=== PATIENT | male | born 1965 | race Caucasian/White ===

== ENCOUNTER 2024-03-03 17:32 | Inpatient (IN) | payer MEDICAID, SELFPAY ==
[2024-03-03] VITALS (7 sets, daily range): BP systolic 109–171; BP diastolic 75–103; PULSE 100–130; RESP 10–20; TEMP 36.3–37.3; O2SAT 92–96; BMI 32.4
--- NOTE | ~2024-03-03 | XR_ITS ---
EXAMINATION: XR CHEST CLINICAL INFORMATION: Endotracheal tube placement. COMPARISON: Chest radiograph 03/03/2024. TECHNIQUE: Frontal view of the chest was obtained. FINDINGS: The endotracheal tube terminates at 4.9 cm above the piper. An enteric tube courses into the abdomen and terminates outside of the field of view. Low lung volumes. Bronchovascular perihilar thickening. No pleural effusion. No pneumothorax. No acute osseous findings. XR/XR chest 1V IMPRESSION: 1. The endotracheal tube terminates at 4.9 cm above the piper. 2. Bronchovascular perihilar thickening that could be seen with pulmonary venous congestion or small airways disease. Electronically signed by: Altagracia Sandhu MD 03/04/2024 02:03 PM EDT
--- NOTE | ~2024-03-03 | XR_ITS ---
EXAMINATION: XR CHEST CLINICAL INFORMATION: central line COMPARISON: Chest radiograph 03/07/2024 at 8:42 AM TECHNIQUE: AP view of the chest was obtained. FINDINGS: Interval placement of left IJ central venous catheter with tip overlying the brachycephalic vein. Endotracheal tube with tip approximately 5.3 cm above the piper. Enteric tube courses below the diaphragm with the tip projecting over the stomach. The lungs are hypoexpanded with mild asymmetric elevation of the right hemidiaphragm, as before. Patchy bibasilar opacities, improving from prior. No synovial pleural effusion, overt pulmonary edema or pneumothorax. The cardiac mediastinal silhouette is within normal limits for technique and unchanged. No acute osseous abnormality. XR/XR chest 1V IMPRESSION: 1. Interval placement of left IJ central venous catheter with tip overlying the brachiocephalic vein. No pneumothorax. 2. Endotracheal tube with tip approximately 5.3 cm above the piper. 3. Patchy bibasilar opacities, improving from prior. Electronically signed by: Andie Quintero DO 03/07/2024 02:00 PM EDT
--- NOTE | ~2024-03-03 | XR_ITS ---
EXAMINATION: XR CHEST CLINICAL INFORMATION: intubated COMPARISON: Chest radiograph 03/05/2024 TECHNIQUE: AP view of the chest was obtained. FINDINGS: Endotracheal tube with tip approximately 5.4 cm above the piper. Enteric tube courses below diaphragm and out of [id number]. The lungs are hypoexpanded. Bibasilar patchy opacities, improved from prior. No pleural effusion, pulmonary edema or pneumothorax. The cardiac mediastinal silhouette is within normal limits for technique and unchanged. No acute osseous abnormality. XR/XR chest 1V IMPRESSION: 1. Endotracheal tube with tip approximately 5.4 cm above the piper. 2. Bibasilar patchy opacities, improved from prior, which may represent atelectasis/consolidation. Electronically signed by: Andie Quintero DO 03/07/2024 02:01 PM EDT
--- NOTE | ~2024-03-03 | MR_ITS ---
EXAMINATION: MR BRAIN WITHOUT CONTRAST CLINICAL INFORMATION: Encephalopathy. COMPARISON: CT head and neck from 03/03/2024. TECHNIQUE: MRI of the brain was obtained using routine sequences without contrast. FINDINGS: Moderately motion degraded exam. No focal restricted diffusion is demonstrated to suggest acute or subacute cerebral ischemia. No evidence of acute or chronic hemorrhagic products on heme-sensitive imaging. Scattered periventricular and deep white matter T2 FLAIR hyperintensities most commonly seen with mild underlying microangiopathy. The ventricles are normal in morphology and size. No abnormal mass effect. No midline shift. Normal appearance of the pituitary gland. Normal positioning of the cerebellar tonsils. Normal arterial and venous vascular flow voids are present. Normal, homogeneous marrow signal. Mild mucosal thickening of the paranasal sinuses. No signal abnormalities within the mastoids. MR/MR head/brain wo con IMPRESSION: 1. No acute intracranial abnormalities. 2. Mild nonspecific white matter changes most commonly seen with mild underlying microangiopathy. Electronically signed by: Srinivasa Conde DO 03/07/2024 06:16 PM EDT
--- NOTE | ~2024-03-03 | XR_ITS ---
EXAMINATION: XR ABDOMEN KUB CLINICAL INDICATION: Small bowel obstruction. COMPARISON: KUB dated March 07, 2024. CT scan of the abdomen and pelvis dated March 03, 2024. TECHNIQUE: Portable supine AP view of the abdomen. FINDINGS: Previously seen nasogastric tube has been removed. There are multiple loops of dilated small bowel predominantly located in the left upper abdomen and measuring up to approximately 4.4 cm in diameter. Relative decompression of distal small bowel and colon suggest small bowel obstruction. Findings appear similar to improved compared with 2 days prior. No free air is identified. No soft tissue mass or organomegaly is noted. Mild degenerative changes of the lower lumbar spine and hips. Tip of thin, braided metallic density projects over the mid lower pelvis. Linear density projecting over the left lung base suggests atelectasis and/or fibrotic streak. XR/XR KUB IMPRESSION: Findings as above. Electronically signed by: Liborio Bowling MD 03/09/2024 10:58 AM EDT
--- NOTE | ~2024-03-03 | XR_ITS ---
EXAMINATION: XR CHEST CLINICAL INFORMATION: Low O2 COMPARISON: None available. TECHNIQUE: Frontal view of the chest was obtained. FINDINGS: No significant abnormality is noted involving the heart, lungs, mediastinum, bony thorax or soft tissues. XR/XR chest 1V IMPRESSION: Unremarkable examination. Electronically signed by: Tim Montano DO 03/03/2024 07:55 PM EDT RP
--- NOTE | ~2024-03-03 | CT_ITS ---
EXAMINATION: CT ANGIOGRAM HEAD CT ANGIOGRAM NECK CT CERVICAL SPINE CLINICAL INFORMATION: AMS, status post fall, EtOH COMPARISON: None. TECHNIQUE: Test bolus sequences followed by intravenous administration 100 mL of Omnipaque 300. Helical imaging was performed in the axial plane from the aortic arch to the skull vertex. Delayed postcontrast imaging of the head was also performed. The data was processed at the nuclear medical technologist's workstation for generation of MIP sequences. Angled MIPs and volume rendered reformatted images were also generated at an offline 3D workstation. Stenoses are assessed in accordance with Acosta et al. Quantification of Carotid Stenosis on CT Angiography. AJR 2006. 27(1):13-19. CT acquisitions of the cervical spine are also obtained. This CT examination was performed using dose optimization techniques as appropriate, variously including the following: *Automated exposure control *Adjustment of mA and/or kV according to patient size (this includes techniques or standardized protocols for targeted exams where dose is matched to indication/reason for exam; i.e. extremities or head) *Use of iterative reconstruction technique DLP: 2389 mGy-cm FINDINGS: CT HEAD: Mild generalized parenchymal volume loss. There is no abnormal attenuation within the brain parenchyma. No territorial loss of pabon-white differentiation. No acute intracranial hemorrhage or extra-axial fluid collection. No significant mass effect or herniation pattern No pathologic intra-axial enhancement within limitations of CT or regional oligemia. The orbits are grossly normal. Lobulated soft tissue within the right maxillary sinus alveolar recess with internal hyperdensity/calcifications raising the possibility of a mycetoma. Sclerotic wall thickening of the right maxillary sinus related to chronic sinusitis. Periodontal lucency associated with the posterior left maxillary molar. Osseous structures are intact. CTA HEAD: Limited diagnostic assessment related to contrast bolus timing and motion artifact. No proximal large vessel occlusion or hemodynamically significant stenosis. Dominant right A1 FANNY. Mild calcific plaque along the left cavernous sinus ICA. Apparent 3 mm superiorly projecting vascular protrusion arising from the right M1 MCA possibly reflecting aneurysm at this location, which is not diagnostically assessed due to the degree of motion artifact (image 116, series 13). No high flow vascular malformations. Timing of the contrast bolus allows assessment of the major dural venous sinuses, which all opacify normally CTA NECK: Classic 3 vessel branching pattern of the aortic arch. The left vertebral artery is dominant. Limited and partially nondiagnostic assessment of the vasculature in the neck related to motion artifact and contrast bolus timing, particularly limiting assessment of the V2 vertebral arteries distal common carotid and mid internal carotid arteries with otherwise grossly preserved contrast filling. Nondiagnostic assessment for subtle intimal flap. CT NECK: Heterogeneity of the thyroid gland with coarse calcification in the right thyroid lobe that can be correlated with thyroid function tests and potentially further assessed with thyroid ultrasound. CT Cervical Spine: Normal sagittal alignment is preserved. Mild multilevel cervical spondylosis. Vertebral body heights are maintained. Motion artifact limits assessment for acute fracture, however no displaced fracture is identified. No pathologic malalignment. CT/CT cervical spine wo IV con IMPRESSION: 1. No acute intracranial findings. 2. Nondiagnostic assessment for vascular injury due to extent of motion artifact and contrast bolus timing. 3. No proximal large vessel occlusion or hemodynamically significant stenosis. Nondiagnostic assessment of the V2 vertebral arteries, distal common carotid and mid internal carotid arteries. 4. Motion artifact limits assessment for acute fracture, however no displaced fracture or traumatic malalignment is identified. 5. Heterogeneity of the thyroid gland that can be correlated with thyroid function tests and potentially further assessed with thyroid ultrasound. Electronically signed by: Rosibel Becker MD 03/03/2024 07:09 PM EDT
--- NOTE | ~2024-03-03 | XR_ITS ---
EXAMINATION: XR ABDOMEN KUB CLINICAL INDICATION: SBO COMPARISON: Abdominal radiograph 03/05/2024 TECHNIQUE: AP supine views of the abdomen, 2 images. FINDINGS: There are multiple dilated loops of small bowel in the left upper and lower abdomen measuring up to 4.3 cm, improved from 5.3 cm on 03/05/2024. Rectal is a temperature probe again seen. No overt pneumoperitoneum. No soft tissue calcification. The visualized lung bases are clear. The osseous structures are unremarkable. XR/XR KUB IMPRESSION: There are multiple dilated loops of small bowel in the left upper and lower abdomen suggestive of ongoing partial small bowel obstruction/ileus, improved from prior. Electronically signed by: Andie Quintero DO 03/07/2024 01:54 PM EDT
--- NOTE | ~2024-03-03 | CT_ITS ---
EXAMINATION: CT ABDOMEN AND PELVIS WITH CONTRAST CLINICAL INFORMATION: Diffuse abdominal pain COMPARISON: None TECHNIQUE: Multiple axial images were obtained from the superior aspect of the liver through the pubic symphysis after the administration of 100 mL of intravenous Omnipaque 350. Images were evaluated on independent dedicated 3-D workstation and 3-D images were reconstructed with concurrent radiologist supervision and subsequently interpreted. Oral contrast was not administered. This CT examination was performed using dose optimization techniques as appropriate, variously including the following: *Automated exposure control *Adjustment of mA and/or kV according to patient size (this includes techniques or standardized protocols for targeted exams where dose is matched to indication/reason for exam; i.e. extremities or head) *Use of iterative reconstruction technique MOTION LIMITED STUDY. DLP: 1004 mGy-cm FINDINGS: LUNG BASES: The visualized lung bases are clear. CARDIOMEDIASTINUM: The visualized heart is normal in size without pericardial effusion. No coronary artery calcification. LIVER: Enlarged measuring 21 cm in the midclavicular line. GALLBLADDER: Noninflamed. BILIARY SYSTEM: No intrahepatic or extrahepatic biliary dilation. PANCREAS: Homogeneous in attenuation. SPLEEN: Normal in size. GENITOURINARY: Although bilateral kidneys demonstrate symmetric enhancement, the right kidney is slightly larger than the left. There is no evidence of significant renal artery atherosclerotic calcifications on this non-arterial phase study. No perinephric fluid collection. No renal calculi. No hydroureteronephrosis. ADRENAL GLANDS: Unremarkable. REPRODUCTIVE: Prostate present. GASTROINTESTINAL: Diffuse fluid-filled dilation of the small bowel extending up to the right lower quadrant. A definite transition point is not identified on this oral noncontrast study. APPENDIX: The appendix is not visualized; however, no pericecal inflammatory changes are seen in the right lower quadrant. PERITONEUM: No pneumoperitoneum. No intra-abdominal fluid collection. VASCULATURE: The abdominal aorta is normal in course and caliber. LYMPH NODES: No pathologically enlarged abdominal or pelvic lymph nodes. SOFT TISSUES/MUSCULOSKELETAL: Fat-containing umbilical hernia with small amount of fluid. There is no acute fracture or significant focal osseous lesion. CT/CT abdomen pelvis w IV con IMPRESSION: 1. At least partial small bowel obstruction without definite identification of a transition point on this study without oral contrast. Dilated small bowel extends up to the right lower quadrant. 2. Umbilical hernia with small amount of fluid. No definite herniation of small bowel through this defect. Fleischner guidelines were followed. This critical test result was discussed with Dr. Rodríguez at 8:04 PM on 03/03/[address] Tim Montano at the time of discovery. It was ascertained that the content and the importance of the findings was understood at the time of the direct communication. Electronically signed by: Tim Montano DO 03/03/2024 08:05 PM EDT RP
--- NOTE | ~2024-03-03 | XR_ITS ---
EXAMINATION: XR CHEST CLINICAL INFORMATION: Ventilator COMPARISON: 03/04/2024 TECHNIQUE: Frontal view of the chest was obtained. FINDINGS: ET tube is 5.4 cm above the piper. NG tube has its tip in the stomach with the tip beyond the field of view. There is mild increased elevation of the right hemidiaphragm. There is patchy consolidation at the left lung base with new obscuration of the left hemidiaphragm and some left mid lung patchy density. No pneumothorax. No large effusions. Subpulmonic effusions cannot be excluded. XR/XR chest 1V IMPRESSION: 1. ET tube 5.4 cm above the piper. 2. New left lower lobe consolidation. Electronically signed by: Emil Ngo MD 03/05/2024 07:21 PM EDT
--- NOTE | ~2024-03-03 | XR_ITS ---
EXAMINATION: XR ABDOMEN KUB CLINICAL INDICATION: Small bowel obstruction COMPARISON: Portable chest 03/04/2024, CT abdomen and pelvis 03/03/2024 TECHNIQUE: 2 AP views of the abdomen. FINDINGS: Multiple dilated air-filled loops of small bowel redemonstrated. There is a minimal amount of of gas in the colon. Appearance again characteristic of at least a partial small bowel obstruction, better characterized on CT scan. A tube projects over the rectum. Esophagogastric tube tip projects in the upper abdomen. XR/XR abdomen 1V IMPRESSION: Multiple dilated air-filled loops of small bowel redemonstrated. There is a minimal amount of of gas in the colon. Appearance again characteristic of at least a partial small bowel obstruction, better characterized on CT scan. This study was presented today March 05, 2024 for interpretation. Stat results provided at this time as requested by referring provider. Electronically signed by: Ana Pradhan MD 03/05/2024 08:47 AM EDT
--- NOTE | ~2024-03-03 | XR_ITS ---
EXAMINATION: XR ABDOMEN KUB CLINICAL INDICATION: Bowel obstruction. COMPARISON: Abdominal radiograph 03/09/2024 and 03/05/2024. TECHNIQUE: AP view of the abdomen. FINDINGS: Compared to 03/09/2024, similar to mildly increased dilatation of multiple loops of the small bowel measuring up to 5.7 cm in diameter. Compared to 03/05/2024, decreased small bowel dilatation. No acute osseous findings. Surgical clips are noted in the scrotal regions. XR/XR KUB IMPRESSION: Compared to 03/05/2024, decreased small bowel dilatation. However, compared to 03/09/2024 there is similar to slightly increased small bowel dilatation. Electronically signed by: Altagracia Sandhu MD 03/10/2024 03:44 PM EDT
--- NOTE | ~2024-03-03 | XR_ITS ---
EXAMINATION: XR CHEST CLINICAL INFORMATION: Questionable aspiration COMPARISON: None available. TECHNIQUE: Frontal view of the chest was obtained. FINDINGS: No significant abnormality is noted involving the heart, lungs, mediastinum, bony thorax or soft tissues. XR/XR chest 1V IMPRESSION: Unremarkable examination. Electronically signed by: Tim Montano DO 03/03/2024 11:12 PM EDT RP
--- NOTE | 2024-03-03 17:41 | ECG_ITS ---
Test Reason : AMS Blood Pressure : / mmHG Vent. Rate : 115 BPM Atrial Rate : 115 BPM P-R Int : 114 ms QRS Dur : 132 ms QT Int : 382 ms P-R-T Axes : 000 -51 011 degrees QTc Int : 528 ms Sinus tachycardia Right bundle branch block Left anterior fascicular block Bifascicular block Inferior infarct , age undetermined Abnormal ECG No previous ECGs available Referred By: Deysi Rodríguez Electronically Signed By:NEVIN ROE MD
--- NOTE | 2024-03-03 18:03 | ED.AMS ---
HPI - Altered Mental Status General Chief Complaint: Altered Mental Status Stated Complaint: STROKE ALERT Time Seen by Provider: 03/03/24 17:40 Source: EMS Mode of arrival: EMS Limitations: altered mental status History of Present Illness ED Provider: Dr. Deysi Rodríguez HPI narrative: Patient comes to the emergency room via ambulance from home. Patient was found by his son approximately 2 hours ago on the floor, unresponsive but breathing. After his name was called, patient woke up. Patient's normal baseline is alert and oriented x3. Today, patient is very confused, not answering questions. Patient's daughter is at bedside here in the emergency room. The last time that she saw her father was approximately a week ago. Patient lives with his son. Seems that for the last 3 days, patient has been vomiting, complaining of abdominal discomfort, no diarrhea. When EMS arrived, they were to open alcoholic drinks open. It is unclear how much the patient drinks but per patient's daughter there is a fair chance that the patient may be considered an alcoholic. Seems that for the last 3 days, patient has gradually decompensated. It is unclear when was the last time the patient was seen within normal limits or at a reasonable baseline. Patient's son is on the way. Patient has history of epilepsy as a child but has not had any seizures as an adult. Related Data Allergies Allergy/AdvReac Type Severity Reaction Status Date / Time No Known Allergies Allergy Verified 03/03/24 17:45 Review of Systems Review of Systems: Yes Unobtainable due to mental condition and Unobtainable due to mental status PMFSH Past Medical History Medical History (Updated 03/03/24 @ 20:23 by Oralia Brown MD) Alcohol abuse Epilepsy Social History Social History Advance Directives: No Advance Directives Information Provided: No Physical Exam ED Vital Signs: Vital Signs - 24 hr 03/03/24 17:44 03/03/24 17:46 03/03/24 19:47 Temperature 97.3 F 97.3 F 99.2 F Pulse Rate 102 H 102 H 130 H Respiratory Rate 20 20 Blood Pressure 141/94 H 141/94 H 170/88 H Pulse Oximetry 94 94 96 Oxygen Delivery Method Room Air Room Air Room Air Nasal Cannula with ETCO2 BMI result Body Mass Index 32.4 Const Other: Appearance: Alert. Confused, slightly combative, keeps yelling I'm fukin' angry , seems nauseous but no vomiting Eyes: Pupils equal, round and reactive to light. ENT: Pharynx normal. Neck: Normal inspection. Neck supple. No lymph nodes noted. No crepitus CVS: Normal heart rate and rhythm. Pulses normal. Normal S1 and S2 Respiratory: No respiratory distress. Breath sounds normal. No Wheezing. No rales Abdomen: Patient had a prominent umbilical hernia which was reduced at bedside Skin: Skin warm and dry. Normal skin color. Normal skin turgor. Extremities: No lower extremity edema. No Lacerations. No Rash Neuro: Seems to be moving all extremities, cranial nerves 2-12 grossly intact, unable to participating cranial nerve assessment Psych: Confused, altered mental status, awake, slightly combative for easily redirectable Course Course Course Narrative: Patient receiving IV fluids, Zofran -all of patient's labs have been obtained, results pending -patient getting CT scans done. However, patient a bit combative, altered. Patient was given 2 mg IV push of Ativan to facilitate the CT scans. Medications Administered Discontinued Medications Generic Name Dose Route Start Last Admin Trade Name Freq PRN Reason Stop Dose Admin Sodium Chloride 1,000 mls @ 999 mls/hr 03/03/24 17:40 03/03/24 19:36 Ns IVCONT 03/03/24 18:40 Infused .Q1H1M ONE Infusion Iohexol 100 ml 03/03/24 18:37 03/03/24 18:37 Iohexol 350 Mg/Ml 100 Ml Infus..Btl IV 03/03/24 18:38 100 ml ONCE ONE Administration Lorazepam 2 mg 03/03/24 18:09 03/03/24 18:15 Lorazepam 2 Mg/Ml Vial IVPUSH 03/03/24 18:10 2 mg ONCE ONE Administration Lorazepam 2 mg 03/03/24 18:33 03/03/24 18:40 Lorazepam 2 Mg/Ml Vial IVPUSH 03/03/24 18:34 2 mg ONCE ONE Administration Ondansetron HCl 4 mg 03/03/24 18:11 03/03/24 18:33 Ondansetron Hcl 4 Mg/2 Ml Vial IVPUSH 03/03/24 18:12 4 mg ONCE ONE Administration Medical Decision Making Medical Decision Making [facility] Narrative: My interpretation of CT scan: No obvious intracranial bleed -my interpretation of labs, white blood cell count slightly elevated, BUN 54, creatinine 1 0.2-4, anion gap 24, INR 1.3, lactic acid 2.4, LFTs bumped, ammonia 194. All of his changes likely secondary buttock encephalopathy due to chronic alcohol abuse. Sepsis is not suspected. Patient's urinalysis has nitrate. However, no leukocyte, no white blood cell counts, no epithelial cells and no bacteria seen in the urine, UTI is noted suspected, antibiotics are not indicated at this time. -patient's vitals stable, normal blood pressure, no fever. Patient has until mental status likely secondary to hepatic encephalopathy. -patient's ETOH level negative. So far, patient has not had any tonic-clonic activity. Patient has already been given 4 mg of Ativan, which were given to help facilitate the imaging as patient was very altered and confused and moving quite a bit. -patient was started on phenobarb protocol -according to the patient's family, patient drinks at least 1 L of alcohol per day, unclear how long he has been off alcohol. ETOH level negative. It is unclear if patient had alcohol withdrawal seizure. Phenobarb protocol 1st dose to be given now -I discussed the CT scan with Dr. Montano from [facility]. Patient has a possible partial small-bowel obstruction without identification of a transfusion point. Due to patient's mental status, patient can not have p.o. contrast. As mentioned above, when patient came in, patient had a prominent umbilical hernia which was reduced, may be the cause of the patient's small bowel dilation, patient may need asked surgery consult for the morning. At this time, the CT scan only shows adipose tissue -I discussed the patient with Dr. Ceron, patient being admitted. Differential Diagnosis Differential Diagnoses: The differential diagnosis associated with the presentation includes (Alcoholic/metabolic encephalopathy, CVA, intracranial bleed) Admission/Observation Consideration of admission/observation: Escalation of care including admission/observation considered Consult Healthcare Provider Management of the patient was discussed with: Hospitalist Lab Data MDM Lab Attestation statement: I reviewed the patient's lab results. 03/03/24 17:55 03/03/24 17:56 Labs: Lab Results 03/03/24 03/03/24 03/03/24 Range/Units 17:55 17:56 18:05 WBC 11.4 H (4.8-10.8) X10*3/uL RBC 5.04 (4.60-5.80) X10*6/uL Hgb 16.6 (14.0-18.0) g/dl Hct 46.5 (42.0-52.0) % MCV 92.3 (80.0-98.0) fL MCH 32.9 (27.0-33.0) pg MCHC 35.7 (31.0-36.0) g/dl RDW 12.4 (11.0-16.0) % Plt Count 126 L (160-400) X10*3/uL MPV 12.6 H (9.4-12.4) fL Immature Gran % (Auto) 0.4 (0.0-0.4) % Neut % (Auto) 73.1 H (45-73) % Lymph % (Auto) 14.7 L (20-40) % [place] % (Auto) 11.5 H (2-11) % Eos % (Auto) 0.1 (0-4) % Baso % (Auto) 0.2 (0-2) % Lymph # (Auto) 1.7 (1.2-4.9) X10*3/uL [place] # (Auto) 1.3 H (0.1-1.2) X10*3/uL Eos # (Auto) 0.0 (0.0-0.4) X10*3/uL Baso # (Auto) 0.0 (0.0-0.2) X10*3/uL Abs Immat Gran (auto) 0.05 H (0.00-0.03) X10*3/uL Absolute Neuts (auto) 8.3 (2.0-8.3) x10*3/uL Absolute Nucleated RBC 0.000 (0.0-0.012) X10*3/uL Nucleated RBC % (auto) 0.0 (0.0-0.2) /100WBC PT 15.0 H (10.9-12.4) SEC INR 1.3 H (0.9-1.1) VBG pH 7.56 H (7.32-7.43) VBG pCO2 28 mmHg VBG pO2 179 mmHg VBG HCO3 25 (22-26) mmol/L VBG O2 Saturation 100.0 % VBG Base Excess 5.0 mmol/L Sodium 138 (135-145) mmol/L Potassium 3.7 (3.3-5.1) mmol/L Chloride 98 (96-108) mmol/L Carbon Dioxide 22 (22-29) mmol/L Anion Gap 22 H (12-20) BUN 54 H (9-16) mg/dL Creatinine 1.24 (0.5-1.4) mg/dL Estim Creat Clear Calc 74.0 Estimated GFR > 60 Random Glucose 205 H (60-115) mg/dL Lactic Acid 2.4 H* (0.5-2.0) mmol/L Calcium 10.0 (8.4-10.2) mg/dL Magnesium 2.0 (1.6-2.6) mg/dL Total Bilirubin 3.9 H (0.0-1.0) mg/dL Direct Bilirubin 2.0 H (0.0-0.5) mg/dL AST 125 H (5-37) U/L ALT 53 H (0-40) U/L Alkaline Phosphatase 125 H (39-117) U/L Ammonia 194 H (13-55) umol/L Total Creatine Kinase 98 (38-174) U/L Troponin I High Sens 10.9 (<3.5-35.0) ng/L B-Natriuretic Peptide < 10 (<100) pg/mL Total Protein 9.4 H (6.5-8.0) g/dL Albumin 4.0 (3.5-5.0) g/dL Lipase 31 (8-78) U/L TSH 0.88 (0.32-4.0) uIU/mL Urine Color [place] Urine Appearance Clear Urine pH 5.5 (5.0-9.0) Ur Specific [place] >= 1.030 H (1.005-1.025) Urine Protein 30 (1+) H (Neg-Trace) mg/dL Urine Glucose (UA) Negative (Negative) mg/dL Urine Ketones Trace (Negative) mg/dL Urine Blood Negative (Negative) Urine Nitrite Positive H (Negative) Ur Leukocyte Esterase Negative (Negative) Urine RBC 0-2 (0-2) /HPF Urine WBC 0-5 (0-5) /HPF Ur Squamous Epith Cells 0-2 (0-2) /HPF Urine Bacteria None Seen (None Seen) Hyaline Casts 6-10 (0-2) /LPF Stool Occult Blood NEGATIVE (NEGATIVE) Urine Opiates Screen Not Detected (Not Detect) Ur Buprenorphine Scrn Not Detected (Not Detect) ng/mL Ur Oxycodone Screen Not Detected (Not Detect) ng/mL Urine Methadone Screen Not Detected (Not Detect) ng/mL Urine Fentanyl Screen Not Detected (Not Detect) Ur Barbiturates Screen Not Detected (Not Detect) Ur Phencyclidine Scrn Not Detected (Not Detect) Ur Amphetamines Screen Not Detected (Not Detect) U Benzodiazepines Scrn Not Detected (Not Detect) Urine Cocaine Screen Not Detected (Not Detect) U Marijuana (THC) Screen Not Detected (Not Detect) Ethyl Alcohol < 10 mg/dL COVID-19 (SANDI) Negative (Negative) COVID-19 Clin Com See Note Independent Interpretation I performed an independent interpretation of an: Plain X-Ray and CT Scan Radiology Impression Discussion of test interpretation with radiology: I have reviewed the radiologist's reading. Radiologist Impression: CT HEAD: Mild generalized parenchymal volume loss. There is no abnormal attenuation within the brain parenchyma. No territorial loss of pabon-white differentiation. No acute intracranial hemorrhage or extra-axial fluid collection. No significant mass effect or herniation pattern No pathologic intra-axial enhancement within limitations of CT or regional oligemia. The orbits are grossly normal. Lobulated soft tissue within the right maxillary sinus alveolar recess with internal hyperdensity/calcifications raising the possibility of a mycetoma. Sclerotic wall thickening of the right maxillary sinus related to chronic sinusitis. Periodontal lucency associated with the posterior left maxillary molar. Osseous structures are intact. CTA HEAD: Limited diagnostic assessment related to contrast bolus timing and motion artifact. No proximal large vessel occlusion or hemodynamically significant stenosis. Dominant right A1 FANNY. Mild calcific plaque along the left cavernous sinus ICA. Apparent 3 mm superiorly projecting vascular protrusion arising from the right M1 MCA possibly reflecting aneurysm at this location, which is not diagnostically assessed due to the degree of motion artifact (image 116, series 13). No high flow vascular malformations. Timing of the contrast bolus allows assessment of the major dural venous sinuses, which all opacify normally CTA NECK: Classic 3 vessel branching pattern of the aortic arch. The left vertebral artery is dominant. Limited and partially nondiagnostic assessment of the vasculature in the neck related to motion artifact and contrast bolus timing, particularly limiting assessment of the V2 vertebral arteries distal common carotid and mid internal carotid arteries with otherwise grossly preserved contrast filling. Nondiagnostic assessment for subtle intimal flap. CT NECK: Heterogeneity of the thyroid gland with coarse calcification in the right thyroid lobe that can be correlated with thyroid function tests and potentially further assessed with thyroid ultrasound. CT Cervical Spine: Normal sagittal alignment is preserved. Mild multilevel cervical spondylosis. Vertebral body heights are maintained. Motion artifact limits assessment for acute fracture, however no displaced fracture is identified. No pathologic malalignment. CT/CT angio head neck IMPRESSION: 1. No acute intracranial findings. 2. Nondiagnostic assessment for vascular injury due to extent of motion artifact and contrast bolus timing. 3. No proximal large vessel occlusion or hemodynamically significant stenosis. Nondiagnostic assessment of the V2 vertebral arteries, distal common carotid and mid internal carotid arteries. 4. Motion artifact limits assessment for acute fracture, however no displaced fracture or traumatic malalignment is identified. 5. Heterogeneity of the thyroid gland that can be correlated with thyroid function tests and potentially further assessed with thyroid ultrasound. Critical Care Time Critical Care Time Critical Care Time: Yes Total Critical Care Time: 75 Attestation: I have personally provided critical care time. Time includes review of lab data, radiology results, discussion with consultants, and monitoring for potential decompensation. Intervention performed as documented. Discharge Plan Discharge Clinical Impression: Acute metabolic encephalopathy, Alcohol dependence Patient Disposition: Admitted As Inpatient
[2024-03-03 18:04] LABS: MANUAL DIFF FLAG NO
[2024-03-03 18:08] LABS: Venous Blood Gas Refer to POC result
[2024-03-03 18:09] LABS: VBG HCO3 25 mmol/L (22-26); VBG pCO2 28 mmHg; VBG pH 7.56 (7.32-7.43); VBG pO2 179 mmHg
[2024-03-03 18:13] LABS: OBS Int Ctl Valid YES; OBS1 NEGATIVE (NEGATIVE)
[2024-03-03] MEDS: LORazepam 2 MG/ML VIAL IVPUSH ×3 (18:15→21:29)
[2024-03-03 18:18] LABS: Amphetamine Screen Urine Not Detected (Not Detect); Barbiturates, Urine Not Detected (Not Detect); Benzodiazepines Screen Urine Not Detected (Not Detect); Buprenorphine Scr Not Detected (Not Detect); Cannabinoid Screen Urine Not Detected (Not Detect); Cocaine Screen Urine Not Detected (Not Detect); Fentanyl, urine Not Detected (Not Detect); INTERNATIONAL NORM RATIO 1.3 (0.9-1.1); Methadone Screen, Urine Not Detected (Not Detect); Opiate Screen Urine Not Detected (Not Detect); Oxycodone Screen Urine Not Detected (Not Detect); Phencyclidine Screen Urine Not Detected (Not Detect)
[2024-03-03 18:18] LABS: Appearance Urine Clear; Color Urine Orange; Glucose Urine UA Negative (Negative); Leukocyte Esterase Urine Negative (Negative); Nitrite Urine Positive (Negative); PH 5.5 (5.0-9.0); Specific Gravity - Urine >= 1.030 (1.005-1.025); UMIC TRIGGER UACC YES; Urine Blood Negative (Negative); Urine Ketones Trace mg/dL (Negative); Urine Protein 30 (1+) mg/dL (Neg-Trace)
[2024-03-03 18:19] LABS: Basophils Percent Auto 0.2 % (0-2); Eosinophils Percent Auto 0.1 % (0-4); Hematocrit 46.5 % (42.0-52.0); Hemoglobin 16.6 g/dl (14.0-18.0); Imm Gran Abs Auto 0.05 X10*3/uL (0.00-0.03); Imm Gran Pct Auto 0.4 % (0.0-0.4); Lymphocytes Absolute Auto 1.7 X10*3/uL (1.2-4.9); Lymphocytes Percent Auto 14.7 % (20-40); Mean Corpuscular HGB Conc 35.7 g/dl (31.0-36.0); Mean Corpuscular Hemoglobin 32.9 pg (27.0-33.0); Mean Corpuscular Volume 92.3 fL (80.0-98.0); Mean Platelet Volume 12.6 fL (9.4-12.4); Monocytes Absolute Auto 1.3 X10*3/uL (0.1-1.2); Monocytes Percent Auto 11.5 % (2-11); Neutrophils Absolute Auto 8.3 x10*3/uL (2.0-8.3); Neutrophils Percent Auto 73.1 % (45-73); Platelet Count 126 X10*3/uL (160-400); Red Blood Count 5.04 X10*6/uL (4.60-5.80); Red Cell Distribution Width 12.4 % (11.0-16.0); White Blood Count 11.4 X10*3/uL (4.8-10.8)
[2024-03-03 18:23] LABS: Ammonia 194 umol/L (13-55)
[2024-03-03 18:33] LABS: Alanine Aminotransferase 53 U/L (0-40); Alkaline Phosphatase 125 U/L (39-117); Anion Gap 22 (12-20); Aspartate Amino Transferase 125 U/L (5-37); Bilirubin Total 3.9 mg/dL (0.0-1.0); Blood Urea Nitrogen 54 mg/dL (9-16); Carbon Dioxide 22 mmol/L (22-29); Chloride 98 mmol/L (96-108); Estimated Glomerular Filt Rate > 60; Ethanol < 10 mg/dL; Glucose Random 205 mg/dL (60-115); Lipase 31 U/L (8-78); Potassium 3.7 mmol/L (3.3-5.1); Sodium 138 mmol/L (135-145); Total Protein 9.4 g/dL (6.5-8.0)
[2024-03-03] MEDS: ondansetron HCL 4 MG/2 ML VIAL IVPUSH (18:33)
[2024-03-03] MEDS: 0.9 % Sodium Chloride 1,000 ML 999 ML IVCONT (18:33)
[2024-03-03 18:35] LABS: Bacteria Urine None Seen (None Seen); RBC Urine 0-2 /HPF (0-2); Squamous Epithelial Cell Urine 0-2 /HPF (0-2); UACC Culture Trigger YES; WBC Urine 0-5 /HPF (0-5)
[2024-03-03] MEDS: iohexoL 350 MG/ML 100 ML INFUS..BTL IV (18:37)
[2024-03-03 18:39] LABS: Lactic Acid 2.4 mmol/L (0.5-2.0)
[2024-03-03 18:43] LABS: B Type Natriuretic Peptide < 10 pg/mL (<100)
[2024-03-03 18:53] LABS: TSH reflex Free T4 0.88 uIU/mL (0.32-4.0)
[2024-03-03 18:55] LABS: COVID-19 Test Negative (Negative); IDNOW Serial# 58CA691E
[2024-03-03 19:12] LABS: Troponin-I High Sensitivity 10.9 ng/L (<3.5-35.0)
--- NOTE | 2024-03-03 19:57 | PC.NURSE ---
This RN assumed care of patient at 1900- pt is sleeping on stretcher, respirations labored, pt shaking, slight temors, on capnography and nuclear monitoring technician. HR 13, O2 97% room air, waiting for MD lactulose for pharmacy (called 2x for it) per MD chan going to initiate phenobarb protocol for alcohol w/d symptoms. waiting for verification of dose from pharmacy.
[2024-03-03 20:01] LABS: Reflex Lactate? Lactic Acid Added
--- NOTE | 2024-03-03 20:10 | P.HPHOSP_ITS ---
History of Present Illness Date of Service: 03/03/24 Chief Complaint: AMS This is a 58-year-old male with pertinent history of alcohol use disorder who was brought to the emergency department for evaluation of altered mentation. Unable to obtain history from the patient. He has been the eye opening to verbal stimulus and falls back asleep. Not able to have a conversation or not following commands. History obtained with the help of ER provider and chart review. Patient was found to be confused and altered as per patient's son at home. Upon EMS arrival, they found open alcoholic drinks neck to the patient. Patient was responding to voice but immediately falling back asleep. Patient does have history of history of epilepsy as a child but has not had any seizures as an adult. As per the daughter, patient has been drinking for the last 3 days. Unable to obtain review of systems. In the emergency department, serum ammonia was found to be elevated. Patient found to be tachycardic and tachypneic. Concern for aspiration as per HYDRAULIC MODELING ENGINEER. Also lactic acid 2.4. Patient was given IV fluids and given CO lactulose Review of Systems 2 Review of Systems: Yes Unobtainable due to mental status [facility] Medical History Alcohol abuse Epilepsy Pertinent family history: Unable to obtain Social History Advance Directives: No Advance Directives Information Provided: No Meds Allergies Allergy/AdvReac Type Severity Reaction Status Date / Time No Known Allergies Allergy Verified 03/03/24 17:45 Active Medications: Current Medications Pharmacy Consult (Consult Rx Etoh Phenob Im/Po) 1 each MISCELLANE ONCE PRN; Protocol PRN Reason: Consult order Home Medications ?Medication ?Instructions ?Recorded ?Confirmed ?Last Taken ?Type No Known Home Meds 03/03/24 03/03/24 Unknown History Physical Exam 2 Vital Signs and Narrative: Vital Signs: Last Vital Signs Temp 99.2 F 03/03/24 19:47 Pulse 130 H 03/03/24 19:47 Resp 20 03/03/24 17:46 BP 170/88 H 03/03/24 19:47 Pulse Ox 96 03/03/24 19:47 O2 Del Method Room Air, Nasal C annula with Capnog lisa 03/03/24 19:47 BMI result Body Mass Index 32.4 Middle-aged male lying in bed in no distress Neck supple, no JVD Tachycardic with regular rhythm, S1-S2 heard Crackles + with tachypnea Abdomen soft nontender, no guarding, no rigidity Patient is only awakening to verbal stimulus Psych: Normal mood No pedal edema Results Labs 03/03/24 17:55 03/03/24 17:56 Labs: Laboratory Results - last 24 hr 03/03/24 03/03/24 03/03/24 17:55 17:56 18:05 MCV 92.3 MCH 32.9 MCHC 35.7 RDW 12.4 Plt Count 126 L MPV 12.6 H Immature Gran % (Auto) 0.4 Neut % (Auto) 73.1 H Lymph % (Auto) 14.7 L [place] % (Auto) 11.5 H Eos % (Auto) 0.1 Baso % (Auto) 0.2 Lymph # (Auto) 1.7 [place] # (Auto) 1.3 H Eos # (Auto) 0.0 Baso # (Auto) 0.0 Abs Immat Gran (auto) 0.05 H Absolute Neuts (auto) 8.3 Absolute Nucleated RBC 0.000 Nucleated RBC % (auto) 0.0 PT 15.0 H INR 1.3 H VBG pH 7.56 H VBG pCO2 28 VBG pO2 179 VBG HCO3 25 VBG O2 Saturation 100.0 VBG Base Excess 5.0 Anion Gap 22 H Estim Creat Clear Calc 74.0 Estimated GFR > 60 Random Glucose 205 H Lactic Acid 2.4 H* Calcium 10.0 Magnesium 2.0 Total Bilirubin 3.9 H Direct Bilirubin 2.0 H AST 125 H ALT 53 H Alkaline Phosphatase 125 H Ammonia 194 H Total Creatine Kinase 98 Troponin I High Sens 10.9 B-Natriuretic Peptide < 10 Total Protein 9.4 H Albumin 4.0 Lipase 31 TSH 0.88 Urine Color [place] Urine Appearance Clear Urine pH 5.5 Ur Specific [place] >= 1.030 H Urine Protein 30 (1+) H Urine Glucose (UA) Negative Urine Ketones Trace Urine Blood Negative Urine Nitrite Positive H Ur Leukocyte Esterase Negative Urine RBC 0-2 Urine WBC 0-5 Ur Squamous Epith Cells 0-2 Urine Bacteria None Seen Hyaline Casts 6-10 Stool Occult Blood NEGATIVE Urine Opiates Screen Not Detected Ur Buprenorphine Scrn Not Detected Ur Oxycodone Screen Not Detected Urine Methadone Screen Not Detected Urine Fentanyl Screen Not Detected Ur Barbiturates Screen Not Detected Ur Phencyclidine Scrn Not Detected Ur Amphetamines Screen Not Detected U Benzodiazepines Scrn Not Detected Urine Cocaine Screen Not Detected U Marijuana (THC) Screen Not Detected Ethyl Alcohol < 10 COVID-19 (SANDI) Negative COVID-19 Clin Com See Note Imaging Radiologist's Impressions: Impressions Head CT 03/03/24 17:40 IMPRESSION: 1. No acute intracranial findings. 2. Nondiagnostic assessment for vascular injury due to extent of motion artifact and contrast bolus timing. 3. No proximal large vessel occlusion or hemodynamically significant stenosis. Nondiagnostic assessment of the V2 vertebral arteries, distal common carotid and mid internal carotid arteries. 4. Motion artifact limits assessment for acute fracture, however no displaced fracture or traumatic malalignment is identified. 5. Heterogeneity of the thyroid gland that can be correlated with thyroid function tests and potentially further assessed with thyroid ultrasound. Electronically signed by: Rosibel Becker MD 03/03/2024 07:09 PM EDT RP Cervical Spine CT 03/03/24 18:00 IMPRESSION: 1. No acute intracranial findings. 2. Nondiagnostic assessment for vascular injury due to extent of motion artifact and contrast bolus timing. 3. No proximal large vessel occlusion or hemodynamically significant stenosis. Nondiagnostic assessment of the V2 vertebral arteries, distal common carotid and mid internal carotid arteries. 4. Motion artifact limits assessment for acute fracture, however no displaced fracture or traumatic malalignment is identified. 5. Heterogeneity of the thyroid gland that can be correlated with thyroid function tests and potentially further assessed with thyroid ultrasound. Electronically signed by: Rosibel Becker MD 03/03/2024 07:09 PM EDT RP Head/Neck CTA 03/03/24 18:00 IMPRESSION: 1. No acute intracranial findings. 2. Nondiagnostic assessment for vascular injury due to extent of motion artifact and contrast bolus timing. 3. No proximal large vessel occlusion or hemodynamically significant stenosis. Nondiagnostic assessment of the V2 vertebral arteries, distal common carotid and mid internal carotid arteries. 4. Motion artifact limits assessment for acute fracture, however no displaced fracture or traumatic malalignment is identified. 5. Heterogeneity of the thyroid gland that can be correlated with thyroid function tests and potentially further assessed with thyroid ultrasound. Electronically signed by: Rosibel Becker MD 03/03/2024 07:09 PM EDT RP Abdomen/Pelvis CT 03/03/24 18:08 IMPRESSION: 1. At least partial small bowel obstruction without definite identification of a transition point on this study without oral contrast. Dilated small bowel extends up to the right lower quadrant. 2. Umbilical hernia with small amount of fluid. No definite herniation of small bowel through this defect. Fleischner guidelines were followed. This critical test result was discussed with Dr. Rodríguez at 8:04 PM on 03/03/[address] Tim Montano at the time of discovery. It was ascertained that the content and the importance of the findings was understood at the time of the direct communication. Electronically signed by: Tim Montano DO 03/03/2024 08:05 PM EDT RP Chest X-Ray 03/03/24 18:35 IMPRESSION: Unremarkable examination. Electronically signed by: Tim Montano DO 03/03/2024 07:55 PM EDT RP Assessment and Plan (1) Acute encephalopathy: Status: Acute (2) Alcohol use disorder: Status: Acute Plan This is a 58-year-old male with pertinent history of alcohol use disorder who was brought to the emergency department for evaluation of altered mentation. #. Acute encephalopathy due to hyperammonemia in the setting of alcohol use disorder: No cirrhosis on imaging. Will admit patient with scheduled lactulose. Monitor mentation. Will keep patient NPO #. Acute respiratory distress due to aspiration pneumonia/pneumonitis in the setting of above: Initiating empiric IV Unasyn. #. Questionable partial SBO on imaging: Consulted General surgery. Will keep patient NPO #. Acute lactic acidosis due to alcoholism: No sepsis #. Alcohol use disorder: Phenobarb protocol initiated in the ER. Administering thiamine and folic acid. Consulted Addiction Team #. Elevated liver enzymes and thrombocytopenia due to alcohol use DVT Prophylaxis: Lovenox Full code Admit as inpatient and will require two night minimum hospital stay for close monitoring of mentation, IV antibiotics (as above), which is not possible in a lesser acute setting. Specialist consult pending Quality Stroke Does the patient have a stroke diagnosis?: No VTE Prior VTE?: No VTE Risk Level:: Medical - moderate - high VTE Device Contraindication: Treatment Not Indicated VTE Drug Contraindication: N/A - Med Ordered
[2024-03-03] MEDS: Lactulose 320 GM/480 ML SOLUTION 200 GM PR (20:25)
--- NOTE | 2024-03-03 20:25 | PHA.MEDREC ---
Addendum entered by Lizzie Leigh RPh 03/03/24 20:26: reviewed by [facility]. Original Note: Pharmacy Consult ? Medication Reconciliation Pharmacy has completed the medication reconciliation. Spoke to patient daughter over the phone. Daughter states patient is not taking any medications.
[2024-03-03] MEDS: PHENobarbitaL sodium 130 MG/ML IM ONCE 273 MG IM (20:33)
[2024-03-03] MEDS: Thiamine HCL 200 MG in 0.9 % Sodium Chloride 100 ML 204 MG IV (20:37)
[2024-03-03] MEDS: Enoxaparin Sodium 40 MG/0.4 ML SYRINGE SUBCUT (20:39)
[2024-03-03] MEDS: Ampicillin Sodium/Sulbactam Na 3 GM in 0.9 % Sodium Chloride 100 ML IV (20:43)
--- NOTE | 2024-03-03 20:52 | PC.NURSE ---
rectal tube inserted and lactulose MD administered via tube. at this point only able to administer approx 300cc total of the lactulose/normal saline mixture. Md Brown aware. pt resting on night monitor. wearing end tidal. MD Brown aware of vital signs. medications administered per jul. pt waiting for bed up on imc. plan of care ongoing.
[2024-03-03 21:03] LABS: ~Lactic Acid-LAB USE ONLY 1.8 mmol/L (0.5-2.0)
[2024-03-03] MEDS: Folic Acid 1 MG in 0.9 % Sodium Chloride 50 ML 100.4 MG IV (21:22)
[2024-03-03 21:40] LABS: ABG Base Excess 0.7 mmol/L; ABG HCO3 20 mmol/L (22-26); ABG pCO2 23 mmHg (32-45); ABG pH 7.55 (7.35-7.45); ABG pO2 92 mmHg (83-108)
[2024-03-03] MEDS: Lactated Ringers 1,000 ML 100 ML IVCONT (22:21)
[2024-03-03] MEDS: PHENobarbitaL sodium 130 MG/ML VIAL IM Q3Hx2 205 MG IM (23:44)
[2024-03-04] VITALS (24 sets, daily range): BP systolic 115–178; BP diastolic 64–97; PULSE 100–128; RESP 20–42; TEMP 29–38.3; O2SAT 94–100
[2024-03-04 00:03] LABS: Beta-Hydroxybutyrate 1.27 mmol/L (0.02-0.27)
[2024-03-04 00:25] LABS: ABG Refer to POC result
[2024-03-04] MEDS: Dextrose 5 % and Lactated Ring 1,000 ML 125 ML IVCONT ×4 (00:32→21:04)
--- NOTE | 2024-03-04 00:35 | PC.NURSE ---
MD Brown aware that lactulose not administering well [place] as patient is unable to be positioned onto his left side d/t possible aspiration/difficulty breathing. pt is sitting upright to assist in breathing. lactulose slow to infuse - first dose still being administered, aware
[2024-03-04 03:01] LABS: Glucose, Whole Blood 210 mg/dL (60-115)
[2024-03-04] MEDS: Ampicillin Sodium/Sulbactam Na 3 GM in 0.9 % Sodium Chloride 100 ML IV ×4 (04:03→20:29)
[2024-03-04] MEDS: PHENobarbitaL sodium 130 MG/ML VIAL IM Q3Hx2 205 MG IM (04:03)
[2024-03-04 04:54] LABS: MANUAL DIFF FLAG NO
[2024-03-04 04:57] LABS: Basophils Percent Auto 0.2 % (0-2); Eosinophils Percent Auto 0.1 % (0-4); Hematocrit 41.9 % (42.0-52.0); Hemoglobin 14.7 g/dl (14.0-18.0); Imm Gran Abs Auto 0.05 X10*3/uL (0.00-0.03); Imm Gran Pct Auto 0.5 % (0.0-0.4); Lymphocytes Absolute Auto 1.3 X10*3/uL (1.2-4.9); Lymphocytes Percent Auto 13.9 % (20-40); Mean Corpuscular HGB Conc 35.1 g/dl (31.0-36.0); Mean Corpuscular Hemoglobin 32.8 pg (27.0-33.0); Mean Corpuscular Volume 93.5 fL (80.0-98.0); Monocytes Absolute Auto 1.2 X10*3/uL (0.1-1.2); Monocytes Percent Auto 12.4 % (2-11); Neutrophils Absolute Auto 6.9 x10*3/uL (2.0-8.3); Neutrophils Percent Auto 72.9 % (45-73); Platelet Count 118 X10*3/uL (160-400); Red Blood Count 4.48 X10*6/uL (4.60-5.80); Red Cell Distribution Width 12.4 % (11.0-16.0); White Blood Count 9.5 X10*3/uL (4.8-10.8)
[2024-03-04 05:08] LABS: Ammonia 139 umol/L (13-55)
[2024-03-04 05:15] LABS: Anion Gap 19 (12-20); Blood Urea Nitrogen 47 mg/dL (9-16); Calcium 9.3 mg/dL (8.4-10.2); Carbon Dioxide 22 mmol/L (22-29); Chloride 106 mmol/L (96-108); Creatinine Clr Calc Pharmacy 86.6; Estimated Glomerular Filt Rate > 60; Glucose Random 228 mg/dL (60-115); Potassium 3.3 mmol/L (3.3-5.1); Sodium 144 mmol/L (135-145)
[2024-03-04 06:11] LABS: Glucose, Whole Blood 228 mg/dL (60-115)
--- NOTE | 2024-03-04 07:58 | PM.CNGS ---
History of Present Illness Consult details Consult date: 03/04/24 Requesting physician: Go Chan Narrative: The 8-year-old male patient presenting to the emergency department after being found unresponsive by his son at home. Patient was found to be very confused and not answering questions when normally he is alert oriented x3. Patient had previously reported abdominal discomfort nausea and vomiting. Patient has a history of alcohol use disorder. Initial evaluation revealed the patient to be tachycardic and tachypneic. His eyes were open to voice but he would fall asleep immediately. Initial lactic acid was 2.4. CT abdomen and pelvis was obtained which revealed dilated loops of small bowel without a clear transition point. Findings were suggestive of a partial small-bowel obstruction. Surgical consultation was requested for management of the partial small-bowel obstruction. This morning he remains somnolent, tachycardic, tachypneic. Review of Systems Review of Systems: Yes Unobtainable due to mental status PMFSH Past Medical History Medical History Alcohol abuse Epilepsy Social History Social History Alcohol intake: current Alcohol intake frequency: 3 or more drinks per day Alcohol type: beer, wine and hard liquor Patient Tobacco Use Status: Tobacco use Unknown Meds Allergies Allergy/AdvReac Type Severity Reaction Status Date / Time No Known Allergies Allergy Verified 03/03/24 17:45 Active Medications: Current Medications Acetaminophen (Acetaminophen 325 Mg Tablet) 650 mg PO Q6H PRN PRN Reason: Pain, Mild (Pain Scale 1-3), fever or headache Calcium Carbonate (Calcium Carbonate 750 Mg Tab.Chew) 750 mg PO Q4H PRN PRN Reason: Heartburn Enoxaparin Sodium (Enoxaparin Sodium 40 Mg/0.4 Ml Syringe) 40 mg SUBCUT Q24H [facility] Last Admin: 03/03/24 20:39 Dose: 40 mg Ampicillin Sodium/Sulbactam (Sodium 3 gm/ Sodium Chloride) 100 mls @ 200 mls/hr IV Q6H [facility] Last Infusion: 03/04/24 04:33 Dose: Infused Dextrose/Lactated Ringer's (D5lr) 1,000 mls @ 125 mls/hr IVCONT .Q8H [facility] Last Admin: 03/04/24 00:32 Dose: 125 mls/hr Lactulose (Lactulose 320 Gm/480 Ml Solution) 200 gm [place] Q6H [facility] Last Admin: 03/04/24 01:12 Dose: Not Given Magnesium Hydroxide (Milk Of Magnesia 30 Ml Oral.Susp) 30 ml PO DAILY PRN PRN Reason: Constipation Melatonin (Melatonin 3 Mg Tablet) 6 mg PO BEDTIME PRN PRN Reason: Insomnia Pharmacy Consult (Consult Rx Etoh Phenob Im/Po) 1 each MISCELLANE ONCE PRN; Protocol PRN Reason: Consult order Phenobarbital (Phenobarbital 15 Mg Tablet) 45 mg PO BID [facility] Stop: 03/05/24 21:01 Phenobarbital (Phenobarbital 30 Mg Tablet) 30 mg PO BID [facility] Stop: 03/08/24 21:01 Phenobarbital (Phenobarbital 30 Mg Tablet) 30 mg PO DAILY [facility] Stop: 03/10/24 09:01 Sodium Chloride (0.9 % Sodium Chloride Flush 3 Ml Syringe) 3 ml IVFLUSH QSHIFT [facility] Last Admin: 03/04/24 00:24 Dose: Not Given Home Medications ?Medication ?Instructions ?Recorded ?Confirmed ?Last Taken ?Type No Known Home Meds 03/03/24 03/03/24 Unknown History Physical Exam Vital Signs: Vital Signs: Last Vital Signs Temp 99.7 F 03/04/24 05:40 Pulse 120 H 03/04/24 05:40 Resp 28 H 03/04/24 05:40 BP 146/88 H 03/04/24 05:40 Pulse Ox 95 03/04/24 05:40 O2 Del Method Room Air 03/04/24 05:40 BMI result Body Mass Index 32.4 Const: General: lethargic and patient obtunded Orientation/consciousness: patient obtunded and lethargic Resp: Effort & Inspection: no audible wheezes, no cough and tachypneic Cardio: Jugular venous distension: no JVD Rate: tachycardic Rhythm: regular rhythm GI: Inspection: Yes distended and Yes Abdominal panniculus present Palpation (GI): Soft to palpation, nontender and no guarding Percussion: Yes tympanic to percussion Rectal Exam - Male: Yes deferred Skin: Other: Warm, dry, no rash Neuro: General: patient obtunded Extrem: General: Yes capillary refill normal and Yes no pedal edema Results Labs 03/04/24 04:45 03/04/24 04:45 Labs: Abnormal lab results 03/03/24 03/03/24 03/03/24 Range/Units 17:55 17:56 18:05 WBC 11.4 H (4.8-10.8) X10*3/uL RBC (4.60-5.80) X10*6/uL Hct (42.0-52.0) % Plt Count 126 L (160-400) X10*3/uL MPV 12.6 H (9.4-12.4) fL Immature Gran % (Auto) (0.0-0.4) % Neut % (Auto) 73.1 H (45-73) % Lymph % (Auto) 14.7 L (20-40) % [place] % (Auto) 11.5 H (2-11) % [place] # (Auto) 1.3 H (0.1-1.2) X10*3/uL Abs Immat Gran (auto) 0.05 H (0.00-0.03) X10*3/uL PT 15.0 H (10.9-12.4) SEC INR 1.3 H (0.9-1.1) ABG pH at Pt Temp (7.35-7.45) ABG pCO2 at Pt Temp (32-45) mmHg ABG HCO3 (22-26) mmol/L VBG pH 7.56 H (7.32-7.43) Anion Gap 22 H (12-20) BUN 54 H (9-16) mg/dL POC Glucose (60-115) mg/dL Random Glucose 205 H (60-115) mg/dL Lactic Acid 2.4 H* (0.5-2.0) mmol/L Total Bilirubin 3.9 H (0.0-1.0) mg/dL Direct Bilirubin 2.0 H (0.0-0.5) mg/dL AST 125 H (5-37) U/L ALT 53 H (0-40) U/L Alkaline Phosphatase 125 H (39-117) U/L Ammonia 194 H (13-55) umol/L Total Protein 9.4 H (6.5-8.0) g/dL Beta-Hydroxybutyrate (0.02-0.27) mmol/L Ur Specific [place] >= 1.030 H (1.005-1.025) Urine Protein 30 (1+) H (Neg-Trace) mg/dL Urine Nitrite Positive H (Negative) 03/03/24 03/03/24 03/04/24 Range/Units 21:30 23:45 02:54 WBC (4.8-10.8) X10*3/uL RBC (4.60-5.80) X10*6/uL Hct (42.0-52.0) % Plt Count (160-400) X10*3/uL MPV (9.4-12.4) fL Immature Gran % (Auto) (0.0-0.4) % Neut % (Auto) (45-73) % Lymph % (Auto) (20-40) % [place] % (Auto) (2-11) % [place] # (Auto) (0.1-1.2) X10*3/uL Abs Immat Gran (auto) (0.00-0.03) X10*3/uL PT (10.9-12.4) SEC INR (0.9-1.1) ABG pH at Pt Temp 7.55 H (7.35-7.45) ABG pCO2 at Pt Temp 23 L (32-45) mmHg ABG HCO3 20 L (22-26) mmol/L VBG pH (7.32-7.43) Anion Gap (12-20) BUN (9-16) mg/dL POC Glucose 210 H (60-115) mg/dL Random Glucose (60-115) mg/dL Lactic Acid (0.5-2.0) mmol/L Total Bilirubin (0.0-1.0) mg/dL Direct Bilirubin (0.0-0.5) mg/dL AST (5-37) U/L ALT (0-40) U/L Alkaline Phosphatase (39-117) U/L Ammonia (13-55) umol/L Total Protein (6.5-8.0) g/dL Beta-Hydroxybutyrate 1.27 H (0.02-0.27) mmol/L Ur Specific [place] (1.005-1.025) Urine Protein (Neg-Trace) mg/dL Urine Nitrite (Negative) 03/04/24 03/04/24 Range/Units 04:45 06:07 WBC (4.8-10.8) X10*3/uL RBC 4.48 L (4.60-5.80) X10*6/uL Hct 41.9 L (42.0-52.0) % Plt Count 118 L (160-400) X10*3/uL MPV (9.4-12.4) fL Immature Gran % (Auto) 0.5 H (0.0-0.4) % Neut % (Auto) (45-73) % Lymph % (Auto) 13.9 L (20-40) % [place] % (Auto) 12.4 H (2-11) % [place] # (Auto) (0.1-1.2) X10*3/uL Abs Immat Gran (auto) 0.05 H (0.00-0.03) X10*3/uL PT (10.9-12.4) SEC INR (0.9-1.1) ABG pH at Pt Temp (7.35-7.45) ABG pCO2 at Pt Temp (32-45) mmHg ABG HCO3 (22-26) mmol/L VBG pH (7.32-7.43) Anion Gap (12-20) BUN 47 H (9-16) mg/dL POC Glucose 228 H (60-115) mg/dL Random Glucose 228 H (60-115) mg/dL Lactic Acid (0.5-2.0) mmol/L Total Bilirubin (0.0-1.0) mg/dL Direct Bilirubin (0.0-0.5) mg/dL AST (5-37) U/L ALT (0-40) U/L Alkaline Phosphatase (39-117) U/L Ammonia 139 H (13-55) umol/L Total Protein (6.5-8.0) g/dL Beta-Hydroxybutyrate (0.02-0.27) mmol/L Ur Specific [place] (1.005-1.025) Urine Protein (Neg-Trace) mg/dL Urine Nitrite (Negative) Short CBC 03/03/24 03/04/24 Range/Units 17:55 04:45 WBC 11.4 H 9.5 (4.8-10.8) X10*3/uL Hgb 16.6 14.7 (14.0-18.0) g/dl Hct 46.5 41.9 L (42.0-52.0) % Plt Count 126 L 118 L (160-400) X10*3/uL BMP 03/03/24 03/04/24 17:56 04:45 Sodium 138 144 Potassium 3.7 3.3 Chloride 98 106 Carbon Dioxide 22 22 BUN 54 H 47 H Creatinine 1.24 1.06 Calcium 10.0 9.3 D Cardiac Enzymes 03/03/24 Range/Units 17:56 Total Creatine Kinase 98 (38-174) U/L Liver Function 03/03/24 Range/Units 17:56 Total Bilirubin 3.9 H (0.0-1.0) mg/dL Direct Bilirubin 2.0 H (0.0-0.5) mg/dL AST 125 H (5-37) U/L ALT 53 H (0-40) U/L Alkaline Phosphatase 125 H (39-117) U/L Albumin 4.0 (3.5-5.0) g/dL Urine 03/03/24 Range/Units 17:56 Urine Color [place] Urine Appearance Clear Urine pH 5.5 (5.0-9.0) Ur Specific [place] >= 1.030 H (1.005-1.025) Urine Protein 30 (1+) H (Neg-Trace) mg/dL Urine Glucose (UA) Negative (Negative) mg/dL All other labs normal. CT/CT abdomen pelvis w IV con IMPRESSION: 1. At least partial small bowel obstruction without definite identification of a transition point on this study without oral contrast. Dilated small bowel extends up to the right lower quadrant. 2. Umbilical hernia with small amount of fluid. No definite herniation of small bowel through this defect. Fleischner guidelines were followed. This critical test result was discussed with Dr. Rodríguez at 8:04 PM on 03/03/[address] Tim Montano at the time of discovery. It was ascertained that the content and the importance of the findings was understood at the time of the direct communication. Electronically signed by: Tim Montano DO 03/03/2024 08:05 PM EDT Assessment and Plan (1) Partial small bowel obstruction: Status: Acute Plan 58-year-old male patient with alcohol dependence presenting unresponsive with acute metabolic encephalopathy found on CT to have dilated loops of small bowel suggestive of a partial small-bowel obstruction. This may be a result of his metabolic disorder. No surgical intervention is required at this time and I would hold off on nasogastric tube unless patient becomes more distended or developed vomiting. We will continue to monitor. Procedures Date of Service Date of Service: 03/04/24
--- NOTE | 2024-03-04 09:11 | PC.NURSE ---
patient appears to be sleeping in room, not arousable to verbal stimuli. plan to hold oral medications at this time. ciwa of 4 d/t being unable to speak with patient. held oral dose of phenobarb at this time.
[2024-03-04] MEDS: Lactulose 320 GM/480 ML SOLUTION 200 GM PR (09:55)
[2024-03-04 10:16] LABS: Glucose, Whole Blood 224 mg/dL (60-115)
--- NOTE | 2024-03-04 11:10 | PC.NURSE ---
Addendum entered by Brittany Puente 03/04/24 11:48: provider previously called to bedside, plan for ICU admission. daughter at bedside aware. respiratory repeating abg at this time. Original Note: patient remains obtunded at this time, unable to assess ciwa. remains w/ beads of sweat to forehead - prior attempt to administer ID lactulose patient oxygen dropped to 88%. remains tachycardic 120-130 and tachypneic 30-40. patient legs noted to be tremulous at this time.
[2024-03-04 11:50] LABS: Hematocrit 42.8 % (42.0-52.0); Hemoglobin 14.9 g/dl (14.0-18.0); Mean Corpuscular HGB Conc 34.8 g/dl (31.0-36.0); Mean Corpuscular Hemoglobin 32.9 pg (27.0-33.0); Mean Corpuscular Volume 94.5 fL (80.0-98.0); Mean Platelet Volume 11.7 fL (9.4-12.4); Platelet Count 110 X10*3/uL (160-400); Red Blood Count 4.53 X10*6/uL (4.60-5.80); Red Cell Distribution Width 12.5 % (11.0-16.0); White Blood Count 8.9 X10*3/uL (4.8-10.8)
[2024-03-04 11:57] LABS: ABG Base Excess 5.1 mmol/L; ABG HCO3 25 mmol/L (22-26); ABG pCO2 25 mmHg (32-45); ABG pO2 89 mmHg (83-108)
[2024-03-04 11:59] LABS: Ammonia 123 umol/L (13-55)
[2024-03-04 12:07] LABS: Anion Gap 15 (12-20); Blood Urea Nitrogen 41 mg/dL (9-16); Calcium 9.3 mg/dL (8.4-10.2); Carbon Dioxide 25 mmol/L (22-29); Chloride 110 mmol/L (96-108); Creatinine Clr Calc Pharmacy 95.6; Estimated Glomerular Filt Rate > 60; Glucose Random 236 mg/dL (60-115); Potassium 3.4 mmol/L (3.3-5.1); Sodium 147 mmol/L (135-145)
--- NOTE | 2024-03-04 12:12 | P.PNIM_ITS ---
Subjective Subjective Date of Service: 03/04/24 Interval History: The patient was seen and examined, with review of the H&P from the overnight shift. 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 The patient was found at home on the floor with altered mental status and was brought to the ED, where treatment for alcohol withdrawal was initiated along with rectal lactulose for hepatic encephalopathy due to elevated ammonia levels. The patient experienced periods of agitation and received multiple doses of Ativan, which helped calm him. However, throughout the morning, he became increasingly less responsive, despite stable vital signs, though he was becoming more tachycardic and had an increased respiratory rate. It was also noted that he was not retaining the lactulose enemas. Phenobarbital was put on hold, as the patient was unresponsive and unable to take medications orally. Review of Systems Review of Systems: Yes Unobtainable due to mental status Physical Exam 2 Vital Signs: Vital Signs: Last Vital Signs Temp 100.0 F 03/04/24 11:14 Pulse 128 H 03/04/24 11:14 Resp 42 H 03/04/24 11:14 BP 168/97 H 03/04/24 11:14 Pulse Ox 95 03/04/24 11:14 O2 Del Method Room Air 03/04/24 11:14 BMI result Body Mass Index 32.4 Const: Other: General: Patient unresponsive, tachynic Resp: CTA bilateral CVS: S1,S2,RRR GI: +BS, no sings of tenderness, no distention Skin: No rash Neuro: motor grossly intact Psych: appropriate affect Objective Data Active Medications Acetaminophen (Acetaminophen 325 Mg Tablet) 650 mg PO Q6H PRN PRN Reason: Pain, Mild (Pain Scale 1-3), fever or headache Calcium Carbonate (Calcium Carbonate 750 Mg Tab.Chew) 750 mg PO Q4H PRN PRN Reason: Heartburn Enoxaparin Sodium (Enoxaparin Sodium 40 Mg/0.4 Ml Syringe) 40 mg SUBCUT Q24H [facility] Last Admin: 03/03/24 20:39 Dose: 40 mg Documented By: DAMION Ampicillin Sodium/Sulbactam (Sodium 3 gm/ Sodium Chloride) 100 mls @ 200 mls/hr IV Q6H [facility] Last Infusion: 03/04/24 09:38 Dose: Infused Documented By: RUDOLPH Dextrose/Lactated Ringer's (D5lr) 1,000 mls @ 125 mls/hr IVCONT .Q8H [facility] Last Admin: 03/04/24 08:37 Dose: 125 mls/hr Documented By: RUDOLPH Lactulose (Lactulose 320 Gm/480 Ml Solution) 200 gm [place] Q6H [facility] Last Admin: 03/04/24 09:55 Dose: 200 gm Documented By: RUDOLPH Magnesium Hydroxide (Milk Of Magnesia 30 Ml Oral.Susp) 30 ml PO DAILY PRN PRN Reason: Constipation Melatonin (Melatonin 3 Mg Tablet) 6 mg PO BEDTIME PRN PRN Reason: Insomnia Pharmacy Consult (Consult Rx Etoh Phenob Im/Po) 1 each MISCELLANE ONCE PRN; Protocol PRN Reason: Consult order Phenobarbital (Phenobarbital 15 Mg Tablet) 45 mg PO BID [facility] Stop: 03/05/24 21:01 Last Admin: 03/04/24 08:58 Dose: Not Given Documented By: RUDOLPH Non-Admin Reason: Patient Condition Contraindication Phenobarbital (Phenobarbital 30 Mg Tablet) 30 mg PO BID [facility] Stop: 03/08/24 21:01 Phenobarbital (Phenobarbital 30 Mg Tablet) 30 mg PO DAILY [facility] Stop: 03/10/24 09:01 Sodium Chloride (0.9 % Sodium Chloride Flush 3 Ml Syringe) 3 ml IVFLUSH QSHIFT [facility] Last Admin: 03/04/24 08:58 Dose: Not Given Documented By: RUDOLPH Non-Admin Reason: IV Running Labs 03/08/24 13:54 03/09/24 04:30 Labs: Laboratory Results - last 24 hr 03/03/24 03/03/24 03/03/24 17:55 17:56 18:05 MCV 92.3 MCH 32.9 MCHC 35.7 RDW 12.4 Plt Count 126 L MPV 12.6 H Immature Gran % (Auto) 0.4 Neut % (Auto) 73.1 H Lymph % (Auto) 14.7 L [place] % (Auto) 11.5 H Eos % (Auto) 0.1 Baso % (Auto) 0.2 Lymph # (Auto) 1.7 [place] # (Auto) 1.3 H Eos # (Auto) 0.0 Baso # (Auto) 0.0 Abs Immat Gran (auto) 0.05 H Absolute Neuts (auto) 8.3 Absolute Nucleated RBC 0.000 Nucleated RBC % (auto) 0.0 PT 15.0 H INR 1.3 H O2 Saturation ABG pH at Pt Temp ABG pCO2 at Pt Temp ABG pO2 at Pt Temp ABG HCO3 ABG Base Excess (Actual) VBG pH 7.56 H VBG pCO2 28 VBG pO2 179 VBG HCO3 25 VBG O2 Saturation 100.0 VBG Base Excess 5.0 Anion Gap 22 H Estim Creat Clear Calc 74.0 Estimated GFR > 60 POC Glucose Random Glucose 205 H Lactic Acid 2.4 H* Lactic Acid F/U @ 2Hr Calcium 10.0 Magnesium 2.0 Total Bilirubin 3.9 H Direct Bilirubin 2.0 H AST 125 H ALT 53 H Alkaline Phosphatase 125 H Ammonia 194 H Total Creatine Kinase 98 Troponin I High Sens 10.9 B-Natriuretic Peptide < 10 Total Protein 9.4 H Albumin 4.0 Lipase 31 Beta-Hydroxybutyrate TSH 0.88 Urine Color [place] Urine Appearance Clear Urine pH 5.5 Ur Specific [place] >= 1.030 H Urine Protein 30 (1+) H Urine Glucose (UA) Negative Urine Ketones Trace Urine Blood Negative Urine Nitrite Positive H Ur Leukocyte Esterase Negative Urine RBC 0-2 Urine WBC 0-5 Ur Squamous Epith Cells 0-2 Urine Bacteria None Seen Hyaline Casts 6-10 Stool Occult Blood NEGATIVE Urine Opiates Screen Not Detected Ur Buprenorphine Scrn Not Detected Ur Oxycodone Screen Not Detected Urine Methadone Screen Not Detected Urine Fentanyl Screen Not Detected Ur Barbiturates Screen Not Detected Ur Phencyclidine Scrn Not Detected Ur Amphetamines Screen Not Detected U Benzodiazepines Scrn Not Detected Urine Cocaine Screen Not Detected U Marijuana (THC) Screen Not Detected Ethyl Alcohol < 10 COVID-19 ([facility]ANDI) Negative COVID-19 Clin Com See Note 03/03/24 03/03/24 03/03/24 20:30 21:30 23:45 MCV MCH MCHC RDW Plt Count MPV Immature Gran % (Auto) Neut % (Auto) Lymph % (Auto) [place] % (Auto) Eos % (Auto) Baso % (Auto) Lymph # (Auto) [place] # (Auto) Eos # (Auto) Baso # (Auto) Abs Immat Gran (auto) Absolute Neuts (auto) Absolute Nucleated RBC Nucleated RBC % (auto) PT INR O2 Saturation 98.0 ABG pH at Pt Temp 7.55 H ABG pCO2 at Pt Temp 23 L ABG pO2 at Pt Temp 92 ABG HCO3 20 L ABG Base Excess (Actual) 0.7 VBG pH VBG pCO2 VBG pO2 VBG HCO3 VBG O2 Saturation VBG Base Excess Anion Gap Estim Creat Clear Calc Estimated GFR POC Glucose Random Glucose Lactic Acid Lactic Acid F/U @ 2Hr 1.8 Calcium Magnesium Total Bilirubin Direct Bilirubin AST ALT Alkaline Phosphatase Ammonia Total Creatine Kinase Troponin I High Sens B-Natriuretic Peptide Total Protein Albumin Lipase Beta-Hydroxybutyrate 1.27 H TSH Urine Color Urine Appearance Urine pH Ur Specific [place] Urine Protein Urine Glucose (UA) Urine Ketones Urine Blood Urine Nitrite Ur Leukocyte Esterase Urine RBC Urine WBC Ur Squamous Epith Cells Urine Bacteria Hyaline Casts Stool Occult Blood Urine Opiates Screen Ur Buprenorphine Scrn Ur Oxycodone Screen Urine Methadone Screen Urine Fentanyl Screen Ur Barbiturates Screen Ur Phencyclidine Scrn Ur Amphetamines Screen U Benzodiazepines Scrn Urine Cocaine Screen U Marijuana (THC) Screen Ethyl Alcohol COVID-19 ([facility]I) COVID-19 Clin Com 03/04/24 03/04/24 03/04/24 02:54 04:45 06:07 MCV 93.5 MCH 32.8 MCHC 35.1 RDW 12.4 Plt Count 118 L MPV 12.0 Immature Gran % (Auto) 0.5 H Neut % (Auto) 72.9 Lymph % (Auto) 13.9 L [place] % (Auto) 12.4 H Eos % (Auto) 0.1 Baso % (Auto) 0.2 Lymph # (Auto) 1.3 [place] # (Auto) 1.2 Eos # (Auto) 0.0 Baso # (Auto) 0.0 Abs Immat Gran (auto) 0.05 H Absolute Neuts (auto) 6.9 Absolute Nucleated RBC 0.000 Nucleated RBC % (auto) 0.0 PT INR O2 Saturation ABG pH at Pt Temp ABG pCO2 at Pt Temp ABG pO2 at Pt Temp ABG HCO3 ABG Base Excess (Actual) VBG pH VBG pCO2 VBG pO2 VBG HCO3 VBG O2 Saturation VBG Base Excess Anion Gap 19 Estim Creat Clear Calc 86.6 Estimated GFR > 60 POC Glucose 210 H 228 H Random Glucose 228 H Lactic Acid Lactic Acid F/U @ 2Hr Calcium 9.3 D Magnesium Total Bilirubin Direct Bilirubin AST ALT Alkaline Phosphatase Ammonia 139 H Total Creatine Kinase Troponin I High Sens B-Natriuretic Peptide Total Protein Albumin Lipase Beta-Hydroxybutyrate TSH Urine Color Urine Appearance Urine pH Ur Specific [place] Urine Protein Urine Glucose (UA) Urine Ketones Urine Blood Urine Nitrite Ur Leukocyte Esterase Urine RBC Urine WBC Ur Squamous Epith Cells Urine Bacteria Hyaline Casts Stool Occult Blood Urine Opiates Screen Ur Buprenorphine Scrn Ur Oxycodone Screen Urine Methadone Screen Urine Fentanyl Screen Ur Barbiturates Screen Ur Phencyclidine Scrn Ur Amphetamines Screen U Benzodiazepines Scrn Urine Cocaine Screen U Marijuana (THC) Screen Ethyl Alcohol COVID-19 ([facility]I) COVID-19 Clin Com 03/04/24 03/04/24 03/04/24 10:11 11:42 11:46 MCV 94.5 MCH 32.9 MCHC 34.8 RDW 12.5 Plt Count 110 L MPV 11.7 Immature Gran % (Auto) Neut % (Auto) Lymph % (Auto) [place] % (Auto) Eos % (Auto) Baso % (Auto) Lymph # (Auto) [place] # (Auto) Eos # (Auto) Baso # (Auto) Abs Immat Gran (auto) Absolute Neuts (auto) Absolute Nucleated RBC 0.000 Nucleated RBC % (auto) 0.0 PT INR O2 Saturation 98.0 ABG pH at Pt Temp 7.60 H* ABG pCO2 at Pt Temp 25 L ABG pO2 at Pt Temp 89 ABG HCO3 25 ABG Base Excess (Actual) 5.1 VBG pH VBG pCO2 VBG pO2 VBG HCO3 VBG O2 Saturation VBG Base Excess Anion Gap 15 Estim Creat Clear Calc 95.6 Estimated GFR > 60 POC Glucose 224 H Random Glucose 236 H Lactic Acid Lactic Acid F/U @ 2Hr Calcium 9.3 Magnesium Total Bilirubin Direct Bilirubin AST ALT Alkaline Phosphatase Ammonia 123 H Total Creatine Kinase 440 H Troponin I High Sens B-Natriuretic Peptide Total Protein Albumin Lipase Beta-Hydroxybutyrate TSH Urine Color Urine Appearance Urine pH Ur Specific [place] Urine Protein Urine Glucose (UA) Urine Ketones Urine Blood Urine Nitrite Ur Leukocyte Esterase Urine RBC Urine WBC Ur Squamous Epith Cells Urine Bacteria Hyaline Casts Stool Occult Blood Urine Opiates Screen Ur Buprenorphine Scrn Ur Oxycodone Screen Urine Methadone Screen Urine Fentanyl Screen Ur Barbiturates Screen Ur Phencyclidine Scrn Ur Amphetamines Screen U Benzodiazepines Scrn Urine Cocaine Screen U Marijuana (THC) Screen Ethyl Alcohol COVID-19 ([facility]I) COVID-19 Clin Com Assessment and Plan (1) Aspiration pneumonia: Status: Acute (2) Acute hypoxemic respiratory failure: Status: Acute (3) Alcohol use disorder: Status: Acute Plan 58/m with alcohol dependence here with metabolic encephalopathy liekely related to alcohol withdrawal, with possible withdrawal Acute hepatic encephalopathy in unresponsive patient. Lactulose enema inefective and given that patient is signficantly altered and at risk for respiratory failure, aspiration. Discussed intubationa nd airway protection with enterprise resource planning consultant. He will need lactulose orally via NGT. Would avoid additional phenobarbital and once intubated may requrire precedex or propofol for alcohol withdrawal if needed. Repeating labs including repeat ammonia, bmp and ABG Acute respiratory distress due to aspiration pneumonia/pneumonitis, on Unassyn Questionable partial SBO on imaging, seen by surgery, probably ileus, no intervention Acute lactic acidosis due to alcoholism: No sepsis Alcohol use disorder: Initiated on Phenobarb but will hold due to unresponsiveness and encephalopathy Elevated liver enzymes and thrombocytopenia due to alcohol use -Monitor DVT Prophylaxis: Lovenox Full code Plan of care discussed with patient daughter and as well as enterprise resource planning consultant Quality Stroke Does the patient have a stroke diagnosis?: No VTE Prior VTE?: No VTE Risk Level:: Medical - moderate - high VTE Device Contraindication: Treatment Not Indicated VTE Drug Contraindication: N/A - Med Ordered
[2024-03-04] MEDS: Midazolam HCl/PF 2 MG/2 ML VIAL 4 MG IVPUSH (12:18)
[2024-03-04] MEDS: Etomidate 20 MG/10 ML VIAL IVPUSH (12:19)
[2024-03-04] MEDS: Succinylcholine Chloride 100 MG/5 ML SYRINGE IVPUSH (12:20)
[2024-03-04 12:23] LABS: ABG Refer to POC result
[2024-03-04] MEDS: propofoL 1,000 MG/100 ML VIAL 28.98 MG IVCONT ×4 (12:26→21:42)
[2024-03-04 14:05] LABS: Hematocrit 41.1 % (42.0-52.0); Hemoglobin 14.1 g/dl (14.0-18.0); Mean Corpuscular HGB Conc 34.3 g/dl (31.0-36.0); Mean Corpuscular Hemoglobin 32.9 pg (27.0-33.0); Platelet Count 108 X10*3/uL (160-400); Red Blood Count 4.28 X10*6/uL (4.60-5.80); Red Cell Distribution Width 12.8 % (11.0-16.0); White Blood Count 8.7 X10*3/uL (4.8-10.8)
[2024-03-04 14:11] LABS: Ammonia 186 umol/L (13-55)
[2024-03-04 14:22] LABS: Alanine Aminotransferase 46 U/L (0-40); Albumin Level 3.3 g/dL (3.5-5.0); Alkaline Phosphatase 107 U/L (39-117); Anion Gap 13 (12-20); Aspartate Amino Transferase 90 U/L (5-37); Bilirubin Total 3.7 mg/dL (0.0-1.0); Blood Urea Nitrogen 43 mg/dL (9-16); Calcium 9.1 mg/dL (8.4-10.2); Carbon Dioxide 26 mmol/L (22-29); Chloride 112 mmol/L (96-108); Creatinine Clr Calc Pharmacy 93.7; Estimated Glomerular Filt Rate > 60; Glucose Random 194 mg/dL (60-115); Magnesium 2.2 mg/dL (1.6-2.6); Phosphorus 3.1 mg/dL (2.7-4.5); Potassium 3.4 mmol/L (3.3-5.1); Sodium 148 mmol/L (135-145); Total Protein 7.7 g/dL (6.5-8.0)
[2024-03-04] MEDS: Lactulose 20 GM/30 ML SOLUTION PO ×2 (14:56→21:04)
[2024-03-04] MEDS: Pantoprazole Sodium 40 MG/10 ML VIAL IVPUSH (14:56)
[2024-03-04] MEDS: Chlorhexidine Gluc Oral Rinse 15 ML MOUTHWASH BUCCAL ×2 (14:56→20:31)
[2024-03-04] MEDS: 0.9 % Sodium Chloride Flush 3 ML SYRINGE IVFLUSH ×2 (15:02→23:49)
[2024-03-04] MEDS: ondansetron HCL 4 MG/2 ML VIAL IVPUSH (15:05)
--- NOTE | 2024-03-04 15:17 | W.PM.CCCN ---
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 He has been a daily drinker but since the past 4 days he has not been feeling good because of which he has not been eating or drinking; he was brought into the ED last night due to altered sensorium and jittery. He received 3 doses of Ativan overnight and also dose of phenobarbital for possible alcohol withdrawal and this morning patient was completely unresponsive and tachypneic so MICU was consulted. Patient also underwent CT of the abdomen which showed partial small bowel obstruction, General surgery was consulted who opined for conservative management Review of Systems Review of Systems: Unable to obtain as patient is altered PMFSH Past Medical History Medical History Alcohol abuse Epilepsy Social History Social History Household Members: Unknown / Unable to assess Housing: Unknown / Unable to assess Alcohol intake: current Alcohol intake frequency: 3 or more drinks per day Alcohol type: beer, wine and hard liquor Patient Tobacco Use Status: Tobacco use Unknown Meds Allergies Allergy/AdvReac Type Severity Reaction Status Date / Time No Known Allergies Allergy Verified 03/03/24 17:45 Active Medications: Current Medications Acetaminophen (Acetaminophen 325 Mg Tablet) 650 mg PO Q6H PRN PRN Reason: Pain, Mild (Pain Scale 1-3), fever or headache Chlorhexidine Gluconate (Chlorhexidine Gluc Oral Rinse 15 Ml Mouthwash) 15 ml BUCCAL DAILY GUERO Last Admin: 03/04/24 14:56 Dose: 15 ml Enoxaparin Sodium (Enoxaparin Sodium 40 Mg/0.4 Ml Syringe) 40 mg SUBCUT Q24H [facility] Last Admin: 03/03/24 20:39 Dose: 40 mg Ampicillin Sodium/Sulbactam (Sodium 3 gm/ Sodium Chloride) 100 mls @ 200 mls/hr IV Q6H [facility] Last Admin: 03/04/24 14:56 Dose: 200 mls/hr Dextrose/Lactated Ringer's (D5lr) 1,000 mls @ 125 mls/hr IVCONT .Q8H [facility] Last Admin: 03/04/24 13:41 Dose: Not Given Propofol (Diprivan) 1,000 mg in 100 mls @ 0 mls/hr IVCONT .Q0M [facility]; Protocol Last Admin: 03/04/24 15:01 Dose: 50 mcg/kg/min, 28.98 mls/hr Lactulose (Lactulose 320 Gm/480 Ml Solution) 200 gm CO Q6H [facility] Last Admin: 03/04/24 13:05 Dose: Not Given Lactulose (Lactulose 20 Gm/30 Ml Solution) 20 gm PO Q8H [facility] Last Admin: 03/04/24 14:56 Dose: 20 gm Ondansetron HCl (Ondansetron Hcl 4 Mg/2 Ml Vial) 4 mg IVPUSH Q8H [facility] Last Admin: 03/04/24 15:05 Dose: 4 mg Pantoprazole Sodium (Pantoprazole Sodium 40 Mg/10 Ml Vial) 40 mg IVPUSH DAILY@0630 [facility] Last Admin: 03/04/24 14:56 Dose: 40 mg Sodium Chloride (0.9 % Sodium Chloride Flush 3 Ml Syringe) 3 ml IVFLUSH QSHIFT [facility] Last Admin: 03/04/24 15:02 Dose: 3 ml Home Medications ?Medication ?Instructions ?Recorded ?Confirmed ?Last Taken ?Type No Known Home Meds 03/03/24 03/03/24 Unknown History Physical Exam Vital Signs: Vital Signs: Last Vital Signs Temp 100.2 F 03/04/24 15:00 Pulse 109 H 03/04/24 15:00 Resp 23 H 03/04/24 15:00 BP 132/78 03/04/24 15:00 Pulse Ox 98 03/04/24 15:00 O2 Del Method Mechanical Ventil ation 03/04/24 15:00 FiO2 30 03/04/24 15:00 BMI result Body Mass Index 32.4 General: acute distress, ill appearing and tired appearing Nutritional Appearance: well nourished and overweight Eyes: appearance normal, both eyes and all related structures; Alignment and Position: alignment normal and position normal Neck: No lymphadenopathy, no thyromegaly Resp: bilateral air entry equal, occasional added sounds present Cardio: Regular rate, regular rhythm; Heart sounds: S1 normal heart sound present and S2 normal heart sound present GI: soft, nontender, no guarding, no hepatosplenomegaly : bladder normal to inspection, bladder normal to palpation, no renal angle tenderness Skin: no rashes or lesions noted and elasticity normal Neuro: Patient in stupor not respond to painful stimulus Results Labs 03/04/24 13:57 03/04/24 13:57 Labs: Short CBC 03/03/24 03/04/24 03/04/24 Range/Units 17:55 04:45 11:42 WBC 11.4 H 9.5 8.9 (4.8-10.8) X10*3/uL Hgb 16.6 14.7 14.9 (14.0-18.0) g/dl Hct 46.5 41.9 L 42.8 (42.0-52.0) % Plt Count 126 L 118 L 110 L (160-400) X10*3/uL 03/04/24 Range/Units 13:57 WBC 8.7 (4.8-10.8) X10*3/uL Hgb 14.1 (14.0-18.0) g/dl Hct 41.1 L (42.0-52.0) % Plt Count 108 L (160-400) X10*3/uL BMP 03/03/24 03/04/24 03/04/24 17:56 04:45 11:42 Sodium 138 144 147 H Potassium 3.7 3.3 3.4 Chloride 98 106 110 H Carbon Dioxide 22 22 25 BUN 54 H 47 H 41 H Creatinine 1.24 1.06 0.96 Calcium 10.0 9.3 D 9.3 03/04/24 13:57 Sodium 148 H Potassium 3.4 Chloride 112 H Carbon Dioxide 26 BUN 43 H Creatinine 0.98 Calcium 9.1 Cardiac Enzymes 03/03/24 03/04/24 Range/Units 17:56 11:42 Total Creatine Kinase 98 440 H (38-174) U/L Liver Function 03/03/24 03/04/24 Range/Units 17:56 13:57 Total Bilirubin 3.9 H 3.7 H (0.0-1.0) mg/dL Direct Bilirubin 2.0 H (0.0-0.5) mg/dL AST 125 H 90 H (5-37) U/L ALT 53 H 46 H (0-40) U/L Alkaline Phosphatase 125 H 107 (39-117) U/L Albumin 4.0 3.3 L (3.5-5.0) g/dL Urine 03/03/24 Range/Units 17:56 Urine Color [place] Urine Appearance Clear Urine pH 5.5 (5.0-9.0) Ur Specific [place] >= 1.030 H (1.005-1.025) Urine Protein 30 (1+) H (Neg-Trace) mg/dL Urine Glucose (UA) Negative (Negative) mg/dL Assessment and Plan (1) Partial small bowel obstruction: Status: Acute (2) Alcohol use disorder: Status: Acute (3) Acute encephalopathy: Status: Acute (4) Alcohol dependence: Status: Acute (5) Acute metabolic encephalopathy: Status: Acute (6) Acute hypoxemic respiratory failure: Status: Acute (7) Aspiration pneumonia: Status: Acute Plan Neuro: Acute encephalopathy possibly due to hepatic encephalopathy and alcohol withdrawal Unable to give large doses of lactulose due to small bowel obstruction and poor tone Ammonia [address] head and CTA of head and neck both did not find any acute abnormality On propofol for sedation, as needed fentanyl for analgesia Close neurological status monitoring in the ICU every hour Cardiac: Blood pressure stable Respiratory: Acute hypoxemic respiratory failure due to aspiration pneumonia Intubated the patient due to aspiration, fecal content noted in oropharyngeal airway while intubation Currently on ventilator support On PRVC mode FiO2 30, PEEP 5, TV 400, RR 20 Peak pressures and plateau pressures are under the curve Ventilator management bundle with head end elevation, aspiration precaution, chlorhexidine mouthwash, daily awakening trials, daily spontaneous breathing trials GI: Partial small-bowel obstruction: General surgery upon for conservative management With keep the patient on scheduled Reglan q.8 hours, we will pantoprazole daily Renal: Baseline creatinine normal We will closely monitor I's and O's Avoid nephrotoxic medications Heme: Chronic anemia, closely monitor H&H, transfuse for hemoglobin less than 7 grams/deciliter Endocrine: Blood sugars under control Sliding scale insulin as needed Infectious disease: Pancultures negative so far, no concerns for infection On empiric Unasyn Musculoskeletal: Decubitus ulcer prevention protocol Lines: Peripheral Prophylaxis: Lovenox, pantoprazole Patient's change in status is secondary to hepatic encephalopathy and alcoholic withdrawal syndrome encephalopathy and this is not due to sepsis. Patient was intubated due to risk for aspiration from altered mental status and this is not due to any infection. As of now there is no concern for sepsis Critical care time spent is about 40 minutes on evaluation of the patient, chart review, admission, formulating critical care plan and management, closely neurological status monitoring, post intubation care, ventilator settings management, sedation management, titrating sedation, review of patient's brain imaging, abdomen and chest imaging Total time managing care of this patient today: 40 minutes.
--- NOTE | 2024-03-04 15:47 | W.PM.CCHP ---
Procedures Date of Service Date of Service: 03/04/24 Intubation Consent for Procedure: Emergent-no informed consent obtained Time out performed: No Sedative: etomidate Mg given: 20 Paralytic: succinylcholine Mg given: 100 Laryngoscope: fiber optic video scope ET tube size: 7.5 ET tube uncuffed: No Tube secured depth (cm): 23 Tube secured location: lips Tube placement confirmation: visualized tube passing through cords, equal breath sounds bilaterally and confirmation by capnometry Patient tolerated procedure: well Intubation complications: none
[2024-03-04 17:06] LABS: Glucose, Whole Blood 197 mg/dL (60-115)
--- NOTE | 2024-03-04 18:05 | PC.NURSE ---
Patient arrived to ICU at 1217 from ED via stretcher. Patient placed in ICU bed and placed on monitor. T 100.2, HR 113, RR 28, BP 125/84 (98), 92% on RA. Patient obtunded & unarousable to name or noxious stimuli. MD & RT at bedside. Patient intubuated by wax molder at 1220 without incident - medicated w/ Versed 4mg IVP, Etomidate 20mg IVP, Succinylcholine 100mg IVP. Propofol gtt ordered and started at 1226 for continued sedation - titrated per EMAR. 7.5 ett, 23cm @ lip, tolerating PC settings rate 14, 10.5 30% - positive colorimetric change; bilateral lung sounds auscultated. OGT placed by w/ glidescope assist - position auscultated. CXR ordered for ETT & OGT placement - see report. Abdomen large, round, distended, faint bowel sounds - ogt suctioned w/ no output. Rectal tube dislogded with repositioning - reinserted without incident draining continuos liquid brown stool - lactulose switched to PO and administered per EMAR. Turner inplace from ED draining dark cari urine. Patient bathed, turn assist bed and hover mat in place, barrier cream applied. Patient repositioned q2hr, heel boots applied. High fall risk precautions in place.
[2024-03-04] MEDS: Enoxaparin Sodium 40 MG/0.4 ML SYRINGE SUBCUT (20:29)
[2024-03-04] MEDS: Acetaminophen 325 MG TABLET 650 MG PO (20:34)
[2024-03-04] MEDS: Rocuronium Bromide 50 MG/5 ML VIAL IVPUSH (21:31)
[2024-03-04 23:34] LABS: Glucose, Whole Blood 230 mg/dL (60-115)
[2024-03-04] MEDS: Insulin Lispro 100 UNIT/ML 3 ML VIAL SUBCUT (23:49)
[2024-03-05] VITALS (40 sets, daily range): BP systolic 84–145; BP diastolic 48–79; PULSE 81–117; RESP 15–40; TEMP 34.7–39.6; O2SAT 55–99; BMI 33.7
[2024-03-05] MEDS: propofoL 1,000 MG/100 ML VIAL 28.98 MG IVCONT ×5 (00:59→13:36)
[2024-03-05] MEDS: Rocuronium Bromide 50 MG/5 ML VIAL IVPUSH ×2 (02:56→06:49)
[2024-03-05] MEDS: Ampicillin Sodium/Sulbactam Na 3 GM in 0.9 % Sodium Chloride 100 ML IV ×3 (03:04→15:52)
[2024-03-05] MEDS: Albumin Human 25 % 100 ML 133.33 ML IV ×2 (03:09→03:53)
[2024-03-05] MEDS: Dextrose 5 % and Lactated Ring 1,000 ML 125 ML IVCONT (04:40)
[2024-03-05 05:31] LABS: VBG Base Excess 6.5 mmol/L; VBG HCO3 26 mmol/L (22-26); VBG pCO2 24 mmHg; VBG pH 7.63 (7.32-7.43); VBG pO2 50 mmHg
[2024-03-05 05:40] LABS: MANUAL DIFF FLAG NO
[2024-03-05 05:41] LABS: Basophils Percent Auto 0.3 % (0-2); Eosinophils Percent Auto 0.2 % (0-4); Hematocrit 42.9 % (42.0-52.0); Hemoglobin 14.4 g/dl (14.0-18.0); Imm Gran Abs Auto 0.03 X10*3/uL (0.00-0.03); Imm Gran Pct Auto 0.3 % (0.0-0.4); Lymphocytes Absolute Auto 1.2 X10*3/uL (1.2-4.9); Lymphocytes Percent Auto 13.6 % (20-40); Mean Corpuscular HGB Conc 33.6 g/dl (31.0-36.0); Mean Corpuscular Hemoglobin 32.7 pg (27.0-33.0); Mean Corpuscular Volume 97.5 fL (80.0-98.0); Mean Platelet Volume 12.1 fL (9.4-12.4); Monocytes Absolute Auto 0.9 X10*3/uL (0.1-1.2); Monocytes Percent Auto 10.1 % (2-11); Neutrophils Absolute Auto 6.8 x10*3/uL (2.0-8.3); Neutrophils Percent Auto 75.5 % (45-73); Platelet Count 112 X10*3/uL (160-400); Red Cell Distribution Width 12.8 % (11.0-16.0); White Blood Count 9.1 X10*3/uL (4.8-10.8)
[2024-03-05] MEDS: Pantoprazole Sodium 40 MG/10 ML VIAL IVPUSH (05:47)
[2024-03-05] MEDS: acetaZOLAMIDE sodium 500 MG VIAL IVPUSH (05:47)
[2024-03-05 05:49] LABS: Ammonia 107 umol/L (13-55)
[2024-03-05] MEDS: dexmedeTOMIDidine HCL/NS 400 MCG/100 ML INFUS..BTL 24.15 MCG IVCONT (05:58)
[2024-03-05 06:16] LABS: Alanine Aminotransferase 55 U/L (0-40); Alkaline Phosphatase 95 U/L (39-117); Anion Gap 17 (12-20); Aspartate Amino Transferase 98 U/L (5-37); Blood Urea Nitrogen 39 mg/dL (9-16); Calcium 9.1 mg/dL (8.4-10.2); Carbon Dioxide 25 mmol/L (22-29); Chloride 108 mmol/L (96-108); Creatinine Clr Calc Pharmacy 86.7; Estimated Glomerular Filt Rate > 60; Glucose Random 247 mg/dL (60-115); Magnesium 2.3 mg/dL (1.6-2.6); Phosphorus 3.3 mg/dL (2.7-4.5); Potassium 2.9 mmol/L (3.3-5.1); Sodium 147 mmol/L (135-145)
[2024-03-05] MEDS: Insulin Lispro 100 UNIT/ML 3 ML VIAL SUBCUT ×3 (06:39→18:08)
[2024-03-05] MEDS: Potassium Chloride/H20 10 MEQ/100 ML PIGGYBACK 100 MEQ IV ×10 (06:39→21:10)
[2024-03-05] MEDS: Ketorolac Tromethamine 15 MG/ML VIAL IVPUSH (06:44)
[2024-03-05] MEDS: dexmedeTOMIDidine HCL/NS 400 MCG/100 ML INFUS..BTL 36.23 MCG IVCONT ×2 (08:20→11:05)
--- NOTE | 2024-03-05 08:20 | P.PNCC_ITS ---
Subjective Subjective Date of Service: 03/05/24 Critical Care Time (minutes): 35 Comment: On ventilator support this morning, episodes of ventilator dyssynchrony needing more Precedex and as needed paralytics Hypotensive down to 70 systolic, needing vasopressor support to be started Physical Exam 2 Vital Signs: Vital Signs: Last Vital Signs Temp 102.2 F H 03/05/24 08:00 Pulse 81 03/05/24 08:00 Resp 29 H 03/05/24 08:00 BP 93/51 L 03/05/24 08:00 Pulse Ox 93 03/05/24 08:00 O2 Del Method Mechanical Ventil ation 03/05/24 08:00 FiO2 30 03/05/24 08:00 BMI result Body Mass Index 33.7 General: acute distress, ill appearing and tired appearing Nutritional Appearance: well nourished and overweight Eyes: appearance normal, both eyes and all related structures; Alignment and Position: alignment normal and position normal Neck: No lymphadenopathy, no thyromegaly Resp: bilateral air entry equal, no added sounds present Cardio: Regular rate, regular rhythm; Heart sounds: S1 normal heart sound present and S2 normal heart sound present GI: soft, nontender, no guarding, no hepatosplenomegaly : bladder normal to inspection, bladder normal to palpation, no renal angle tenderness Skin: no rashes or lesions noted and elasticity normal Neuro: Sedated, no focal deficits Objective Data Labs 03/05/24 05:25 03/05/24 05:25 Labs: Laboratory Results - last 24 hr 03/04/24 03/04/24 03/04/24 10:11 11:42 11:46 WBC 8.9 RBC 4.53 L Hgb 14.9 Hct 42.8 MCV 94.5 MCH 32.9 MCHC 34.8 RDW 12.5 Plt Count 110 L MPV 11.7 Immature Gran % (Auto) Neut % (Auto) Lymph % (Auto) Osborne % (Auto) Eos % (Auto) Baso % (Auto) Lymph # (Auto) Osborne # (Auto) Eos # (Auto) Baso # (Auto) Abs Immat Gran (auto) Absolute Neuts (auto) Absolute Nucleated RBC 0.000 Nucleated RBC % (auto) 0.0 O2 Saturation 98.0 ABG pH at Pt Temp 7.60 H* ABG pCO2 at Pt Temp 25 L ABG pO2 at Pt Temp 89 ABG HCO3 25 ABG Base Excess (Actual) 5.1 VBG pH VBG pCO2 VBG pO2 VBG HCO3 VBG O2 Saturation VBG Base Excess Sodium 147 H Potassium 3.4 Chloride 110 H Carbon Dioxide 25 Anion Gap 15 BUN 41 H Creatinine 0.96 Estim Creat Clear Calc 95.6 Estimated GFR > 60 POC Glucose 224 H Random Glucose 236 H Calcium 9.3 Phosphorus Magnesium Total Bilirubin AST ALT Alkaline Phosphatase Ammonia 123 H Total Creatine Kinase 440 H Total Protein Albumin 03/04/24 03/04/24 03/04/24 13:56 13:57 17:02 WBC 8.7 RBC 4.28 L Hgb 14.1 Hct 41.1 L MCV 96.0 MCH 32.9 MCHC 34.3 RDW 12.8 Plt Count 108 L MPV 12.0 Immature Gran % (Auto) Neut % (Auto) Lymph % (Auto) Osborne % (Auto) Eos % (Auto) Baso % (Auto) Lymph # (Auto) Osborne # (Auto) Eos # (Auto) Baso # (Auto) Abs Immat Gran (auto) Absolute Neuts (auto) Absolute Nucleated RBC 0.000 Nucleated RBC % (auto) 0.0 O2 Saturation ABG pH at Pt Temp ABG pCO2 at Pt Temp ABG pO2 at Pt Temp ABG HCO3 ABG Base Excess (Actual) VBG pH VBG pCO2 VBG pO2 VBG HCO3 VBG O2 Saturation VBG Base Excess Sodium 148 H Potassium 3.4 Chloride 112 H Carbon Dioxide 26 Anion Gap 13 BUN 43 H Creatinine 0.98 Estim Creat Clear Calc 93.7 Estimated GFR > 60 POC Glucose 197 H Random Glucose 194 H Calcium 9.1 Phosphorus 3.1 Magnesium 2.2 Total Bilirubin 3.7 H AST 90 H ALT 46 H Alkaline Phosphatase 107 Ammonia 186 H Total Creatine Kinase Total Protein 7.7 Albumin 3.3 L 03/04/24 03/05/24 03/05/24 23:27 05:20 05:25 WBC 9.1 RBC 4.40 L Hgb 14.4 Hct 42.9 MCV 97.5 MCH 32.7 MCHC 33.6 RDW 12.8 Plt Count 112 L MPV 12.1 Immature Gran % (Auto) 0.3 Neut % (Auto) 75.5 H Lymph % (Auto) 13.6 L Osborne % (Auto) 10.1 Eos % (Auto) 0.2 Baso % (Auto) 0.3 Lymph # (Auto) 1.2 Osborne # (Auto) 0.9 Eos # (Auto) 0.0 Baso # (Auto) 0.0 Abs Immat Gran (auto) 0.03 Absolute Neuts (auto) 6.8 Absolute Nucleated RBC 0.000 Nucleated RBC % (auto) 0.0 O2 Saturation ABG pH at Pt Temp ABG pCO2 at Pt Temp ABG pO2 at Pt Temp ABG HCO3 ABG Base Excess (Actual) VBG pH 7.63 H* VBG pCO2 24 VBG pO2 50 VBG HCO3 26 VBG O2 Saturation 84.0 VBG Base Excess 6.5 Sodium 147 H Potassium 2.9 L* Chloride 108 Carbon Dioxide 25 Anion Gap 17 BUN 39 H Creatinine 1.08 Estim Creat Clear Calc 86.7 Estimated GFR > 60 POC Glucose 230 H Random Glucose 247 H Calcium 9.1 Phosphorus 3.3 Magnesium 2.3 Total Bilirubin 3.0 H AST 98 H ALT 55 H Alkaline Phosphatase 95 Ammonia 107 H Total Creatine Kinase Total Protein 8.0 Albumin 4.0 Microbiology Microbiology Results: Microbiology 03/03/24 19:20 Blood - Venous Blood Culture - Preliminary No growth after 24 hours. 03/03/24 17:55 Blood - Venous Blood Culture - Preliminary No growth after 24 hours. Progress Note: A&P Assessment and plan (1) Aspiration pneumonia: Status: Acute (2) Acute hypoxemic respiratory failure: Status: Acute (3) Partial small bowel obstruction: Status: Acute (4) Alcohol use disorder: Status: Acute (5) Acute encephalopathy: Status: Acute (6) Cardiogenic shock: Status: Acute Plan Neuro: Acute encephalopathy possibly due to hepatic encephalopathy and alcohol withdrawal Unable to give large doses of lactulose due to small bowel obstruction and poor rectal tone Ammonia down to [address] head and CTA of head and neck both did not find any acute abnormality On propofol for sedation, as needed fentanyl for analgesia Close neurological status monitoring in the ICU every hour Cardiac: Cardiogenic shock secondary to positive pressure ventilation and propofol Currently on Levophed support, we will up titrate the Levophed as needed to keep the map above 65 mm Hg Respiratory: Acute hypoxemic respiratory failure due to aspiration pneumonia Intubated the patient due to aspiration, fecal content noted in oropharyngeal airway while intubation Currently on ventilator support On PRVC mode FiO2 30, PEEP 5, TV 400, RR 20 Peak pressures and plateau pressures are under the curve Ventilator management bundle with head end elevation, aspiration precaution, chlorhexidine mouthwash, daily awakening trials, daily spontaneous breathing trials GI: Partial small-bowel obstruction: General surgery upon for conservative management With keep the patient on scheduled Reglan q.8 hours, we will pantoprazole daily Alcoholic hepatitis: AST ALT slightly trending lower when compared to yesterday Maddrey's discriminant function score: 12.2, no indication for prenisolone Renal: Baseline creatinine normal We will closely monitor I's and O's Avoid nephrotoxic medications Heme: Chronic anemia, closely monitor H&H, transfuse for hemoglobin less than 7 grams/deciliter Endocrine: Blood sugars under control Sliding scale insulin as needed Infectious disease: Pancultures negative so far, no concerns for infection On empiric Unasyn Musculoskeletal: Decubitus ulcer prevention protocol Lines: Peripheral Prophylaxis: Lovenox, pantoprazole Total critical care time spent is about 40 minutes on managing this critically ill patient with multiple organ failures including acute encephalopathy, acute hypoxemic respiratory failure, alcoholic hepatitis, cardiogenic shock. Critical care time spent is mostly on ventilator management, sedation management, managing episodes of ventilator dyssynchrony, close hemodynamic monitoring, vasopressor management at this time is excluding any procedural time Quality Stroke Does the patient have a stroke diagnosis?: No VTE Prior VTE?: No VTE Risk Level:: Medical - moderate - high VTE Device Contraindication: Treatment Not Indicated VTE Drug Contraindication: N/A - Med Ordered
[2024-03-05] MEDS: Norepinephrine Bitartrate/D5W 8 MG/250 ML PLAST..BAG 9.42 MG IVCONT (08:30)
[2024-03-05] MEDS: Chlorhexidine Gluc Oral Rinse 15 ML MOUTHWASH BUCCAL ×4 (08:37→20:05)
[2024-03-05] MEDS: 0.9 % Sodium Chloride Flush 3 ML SYRINGE IVFLUSH ×2 (08:37→17:10)
--- NOTE | 2024-03-05 09:48 | P.CDIM_ITS ---
PROVIDER RESPONSE TEXT: To clarify, the appropriate diagnosis supported by the clinical indicators: Hypokalemia: possible QUERY TEXT: PHYSICIAN'S DOCUMENTATION REQUEST Date of Query: 03/05/2024 09:39 AM EDT Patient Name: Kris Santillan Admit Date: 03/04/2024 Dear Dexter Mcarthur MD, A review of the medical record indicates additional documentation may be needed. Please review below and update the documentation accordingly. Clinical Indicators: LABS: potassium 2.9 IV Potassium chloride Based on the above, is there a diagnosis that correlates with these lab findings: Hypokalemia possible, probable, suspected, resolved etc. Labs indicate a diagnosis of (please specify) Other (explain) Clinically unable to determine (explain) Thank you, Ingris Mcbride, CCS, CDIS Use of terms such as suspected, likely, concern for, or probable (associated with a specific diagnosi s that is being evaluated, monitored, or treated as if it exists) are acceptable and can be coded in the inpatient se tting, when documented at the time of discharge. Please use your independent medical judgment in providing your response. THIS QUERY IS PART OF THE PERMANENT MEDICAL RECORD
[2024-03-05 11:17] LABS: Venous Blood Gas Refer to POC result
[2024-03-05 12:00] LABS: Glucose, Whole Blood 160 mg/dL (60-115)
--- NOTE | 2024-03-05 12:03 | MHC.CLN ---
PT MAY REQUIRE TF FOR NUTRITION SUPPORT R/T PROLONGED NPO STATUS PT IS INTUBATED AND SEDATED CURRENTLY NPO IF TF NEEDED; RECOMMEND PROMOTE AT MAX GOAL RATE 45ML/HR TO PROVIDE [id number] ([id number] WITH SEDATION), 67.5G PROTEIN, 906ML FREE WATER FROM FORMULA WITH 240ML FREE WATER FLSUHES Q 4 HRS TO PROVIDE 2346ML TOTAL WATER FROM FORMULA AND FLUSHES (29ML/KG) FOLLOWING WITH TEAM SEE ALSO FULL CLINICAL NUTRITION ASSESSMENT
[2024-03-05] MEDS: Midazolam HCl/NS 50 MG/50 ML PLAST..BAG IVCONT ×2 (13:00→20:02)
[2024-03-05] MEDS: Rocuronium Bromide 50 MG/5 ML VIAL 100 MG IVPUSH (13:18)
[2024-03-05] MEDS: Lactulose 320 GM/480 ML SOLUTION 200 GM PR ×2 (13:24→22:01)
--- NOTE | 2024-03-05 13:58 | MHC.CM.PN ---
Addendum entered by Mary Hogan 03/05/24 14:20: Fax to [facility] [place] financial counseling for assistance w/payor. Pt is listed as self pay Original Note: Pt intubated in ICU and unable to participate in CM assessment: Per discussion w/pt's dtr, pt resides alone and has been declining since the passing of his mother, drinking more and less interested in his own health and wellness. No services or DME used, no HCP. CM to follow for clinical improvement and will finalize d/c planning.
[2024-03-05 16:00] LABS: Anion Gap 16 (12-20); Blood Urea Nitrogen 48 mg/dL (9-16); Carbon Dioxide 26 mmol/L (22-29); Chloride 109 mmol/L (96-108); Creatinine Clr Calc Pharmacy 41.4; Estimated Glomerular Filt Rate 30; Glucose Random 198 mg/dL (60-115); Potassium 3.7 mmol/L (3.3-5.1); Sodium 147 mmol/L (135-145)
[2024-03-05] MEDS: propofoL 1,000 MG/100 ML VIAL 23.18 MG IVCONT ×2 (16:03→20:26)
[2024-03-05 17:56] LABS: Glucose, Whole Blood 206 mg/dL (60-115)
[2024-03-05] MEDS: Enoxaparin Sodium 40 MG/0.4 ML SYRINGE SUBCUT (19:53)
[2024-03-05] MEDS: Piperacillin Sodium/Tazobactam 3.375 GM in 0.9 % Sodium Chloride 50 ML IV (19:56)
[2024-03-05 20:10] LABS: Hemoglobin 15.1 g/dl (14.0-18.0); Mean Corpuscular HGB Conc 34.3 g/dl (31.0-36.0); Mean Corpuscular Hemoglobin 33.3 pg (27.0-33.0); Mean Corpuscular Volume 96.9 fL (80.0-98.0); Mean Platelet Volume 12.6 fL (9.4-12.4); Platelet Count 109 X10*3/uL (160-400); Red Blood Count 4.54 X10*6/uL (4.60-5.80); Red Cell Distribution Width 12.8 % (11.0-16.0)
[2024-03-05 20:48] LABS: Band Neutrophils Percent 10 % (3-5); Eosinophils Absolute Manual 0.1 X10*3/uL (0.0-0.4); Eosinophils Percent Manual 1 % (0-4); Lymphocytes Absolute Manual 2.4 X10*3/uL (1.2-4.9); Lymphocytes Percent Manual 17 % (20-40); Metamyelocytes Absolute 0.4 X10*3/uL; Metamyelocytes Percent 3 %; Monocytes Absolute Manual 0.7 X10*3/uL (0.1-1.2); Monocytes Percent Manual 5 % (2-11); Neutrophils Absolute Manual 10.4 X10*3/uL (2.0-8.3); Neutrophils Percent Manual 64 % (45-73)
[2024-03-05 20:51] LABS: RBC Morphology NORMAL
[2024-03-05 20:52] LABS: Platelet Estimate DECREASED (NORMAL); Platelet Morphology Comment NORMAL
[2024-03-05 23:58] LABS: Glucose, Whole Blood 174 mg/dL (60-115)
[2024-03-06] VITALS (36 sets, daily range): BP systolic 94–128; BP diastolic 58–84; PULSE 99–127; RESP 17–29; TEMP 34.2–38.5; O2SAT 93–98; BMI 33.0
[2024-03-06] MEDS: 0.9 % Sodium Chloride Flush 3 ML SYRINGE IVFLUSH ×4 (00:19→19:39)
[2024-03-06] MEDS: Insulin Lispro 100 UNIT/ML 3 ML VIAL SUBCUT ×4 (00:19→18:30)
[2024-03-06] MEDS: propofoL 1,000 MG/100 ML VIAL 23.18 MG IVCONT ×2 (00:52→04:59)
[2024-03-06] MEDS: Piperacillin Sodium/Tazobactam 3.375 GM in 0.9 % Sodium Chloride 50 ML IV ×4 (02:25→19:30)
[2024-03-06] MEDS: Lactulose 320 GM/480 ML SOLUTION 200 GM PR ×4 (02:27→20:00)
[2024-03-06] MEDS: Norepinephrine Bitartrate/D5W 8 MG/250 ML PLAST..BAG 9.42 MG IVCONT (03:45)
[2024-03-06] MEDS: Pantoprazole Sodium 40 MG/10 ML VIAL IVPUSH (05:35)
[2024-03-06 05:41] LABS: VBG Base Excess -1.1 mmol/L; VBG HCO3 18 mmol/L (22-26); VBG pCO2 21 mmHg; VBG pH 7.55 (7.32-7.43); VBG pO2 60 mmHg
[2024-03-06 05:52] LABS: Venous Blood Gas Refer to POC result
[2024-03-06 06:08] LABS: Hematocrit 49.1 % (42.0-52.0); Hemoglobin 16.6 g/dl (14.0-18.0); Mean Corpuscular HGB Conc 33.8 g/dl (31.0-36.0); Mean Corpuscular Hemoglobin 33.2 pg (27.0-33.0); Mean Corpuscular Volume 98.2 fL (80.0-98.0); Mean Platelet Volume 12.9 fL (9.4-12.4); Platelet Count 117 X10*3/uL (160-400); Red Cell Distribution Width 12.7 % (11.0-16.0); White Blood Count 19.9 X10*3/uL (4.8-10.8)
[2024-03-06 06:14] LABS: Alanine Aminotransferase 50 U/L (0-40); Alkaline Phosphatase 97 U/L (39-117); Anion Gap 23 (12-20); Aspartate Amino Transferase 56 U/L (5-37); Bilirubin Total 4.1 mg/dL (0.0-1.0); Blood Urea Nitrogen 66 mg/dL (9-16); Calcium 9.9 mg/dL (8.4-10.2); Carbon Dioxide 20 mmol/L (22-29); Chloride 109 mmol/L (96-108); Creatinine Clr Calc Pharmacy 34.3; Estimated Glomerular Filt Rate 24; Glucose Random 184 mg/dL (60-115); Magnesium 2.8 mg/dL (1.6-2.6); Phosphorus 5.5 mg/dL (2.7-4.5); Potassium 3.3 mmol/L (3.3-5.1); Sodium 149 mmol/L (135-145); Total Protein 8.9 g/dL (6.5-8.0)
[2024-03-06 06:31] LABS: Band Neutrophils Percent 20 % (3-5); Lymphocytes Absolute Manual 3.6 X10*3/uL (1.2-4.9); Lymphocytes Percent Manual 18 % (20-40); Metamyelocytes Absolute 0.4 X10*3/uL; Metamyelocytes Percent 2 %; Monocytes Absolute Manual 0.4 X10*3/uL (0.1-1.2); Monocytes Percent Manual 2 % (2-11); Neutrophils Absolute Manual 15.5 X10*3/uL (2.0-8.3); Neutrophils Percent Manual 58 % (45-73)
[2024-03-06 06:32] LABS: Platelet Estimate DECREASED (NORMAL); RBC Morphology NORMAL
[2024-03-06 06:33] LABS: Platelet Morphology Comment NORMAL
[2024-03-06] MEDS: Midazolam HCl/NS 50 MG/50 ML PLAST..BAG IVCONT (08:16)
[2024-03-06] MEDS: Chlorhexidine Gluc Oral Rinse 15 ML MOUTHWASH BUCCAL ×3 (08:19→20:47)
--- NOTE | 2024-03-06 08:25 | PM.CCPN ---
Subjective Subjective Date of Service: 03/06/24 Critical Care Time (minutes): 40 Comment: On ventilator support On Versed for sedation On Levophed for vasopressor support febrile this morning Physical Exam Vital Signs: Vital Signs: Last Vital Signs Temp 98.4 F 03/06/24 08:00 Pulse 99 03/06/24 08:09 Resp 21 H 03/06/24 08:00 BP 103/68 03/06/24 08:09 Pulse Ox 97 03/06/24 08:00 O2 Del Method Mechanical Ventil ation 03/06/24 08:00 FiO2 40 03/06/24 08:00 BMI result Body Mass Index 33.0 General: acute distress, ill appearing and tired appearing Nutritional Appearance: well nourished and overweight Eyes: appearance normal, both eyes and all related structures; Alignment and Position: alignment normal and position normal Neck: No lymphadenopathy, no thyromegaly Resp: bilateral air entry equal, crackles heard in the left lung area Cardio: Regular rate, regular rhythm; Heart sounds: S1 normal heart sound present and S2 normal heart sound present GI: soft, nontender, no guarding, no hepatosplenomegaly : bladder normal to inspection, bladder normal to palpation, no renal angle tenderness Skin: no rashes or lesions noted and elasticity normal Neuro: Sedated, no focal deficits Objective Data Labs 03/06/24 05:33 03/06/24 05:33 Labs: Laboratory Results - last 24 hr 03/05/24 03/05/24 03/05/24 11:55 15:38 17:49 WBC RBC Hgb Hct MCV MCH MCHC RDW Plt Count MPV Immature Gran % (Auto) Neut % (Auto) Lymph % (Auto) [place] % (Auto) Eos % (Auto) Baso % (Auto) Lymph # (Auto) [place] # (Auto) Eos # (Auto) Baso # (Auto) Abs Immat Gran (auto) Absolute Neuts (auto) Absolute Nucleated RBC Nucleated RBC % (auto) Neutrophils % (Manual) Band Neutrophils % Lymphocytes % (Manual) Monocytes % (Manual) Eosinophils % (Manual) Metamyelocytes % Abs Neuts (Manual) Lymphocytes # (Manual) Monocytes # (Manual) Eosinophils # (Manual) Metamyelocytes # Platelet Estimate Plt Morphology Comment RBC Morphology VBG pH VBG pCO2 VBG pO2 VBG HCO3 VBG O2 Saturation VBG Base Excess Sodium 147 H Potassium 3.7 D Chloride 109 H Carbon Dioxide 26 Anion Gap 16 BUN 48 H Creatinine 2.26 H Estim Creat Clear Calc 41.4 Estimated GFR 30 POC Glucose 160 H 206 H Random Glucose 198 H Calcium 9.0 Phosphorus Magnesium Total Bilirubin AST ALT Alkaline Phosphatase Total Protein Albumin 03/05/24 03/05/24 03/06/24 19:50 23:55 05:30 WBC 14.0 H RBC 4.54 L Hgb 15.1 Hct 44.0 MCV 96.9 MCH 33.3 H MCHC 34.3 RDW 12.8 Plt Count 109 L MPV 12.6 H Immature Gran % (Auto) Cancelled Neut % (Auto) Cancelled Lymph % (Auto) Cancelled [place] % (Auto) Cancelled Eos % (Auto) Cancelled Baso % (Auto) Cancelled Lymph # (Auto) Cancelled [place] # (Auto) Cancelled Eos # (Auto) Cancelled Baso # (Auto) Cancelled Abs Immat Gran (auto) Cancelled Absolute Neuts (auto) Cancelled Absolute Nucleated RBC 0.000 Nucleated RBC % (auto) 0.0 Neutrophils % (Manual) 64 Band Neutrophils % 10 H Lymphocytes % (Manual) 17 L Monocytes % (Manual) 5 Eosinophils % (Manual) 1 Metamyelocytes % 3 Abs Neuts (Manual) 10.4 H Lymphocytes # (Manual) 2.4 Monocytes # (Manual) 0.7 Eosinophils # (Manual) 0.1 Metamyelocytes # 0.4 Platelet Estimate DECREASED Plt Morphology Comment NORMAL RBC Morphology NORMAL VBG pH 7.55 H VBG pCO2 21 VBG pO2 60 VBG HCO3 18 L VBG O2 Saturation 91.0 VBG Base Excess -1.1 Sodium Potassium Chloride Carbon Dioxide Anion Gap BUN Creatinine Estim Creat Clear Calc Estimated GFR POC Glucose 174 H Random Glucose Calcium Phosphorus Magnesium Total Bilirubin AST ALT Alkaline Phosphatase Total Protein Albumin 03/06/24 05:33 WBC 19.9 H RBC 5.00 Hgb 16.6 Hct 49.1 MCV 98.2 H MCH 33.2 H MCHC 33.8 RDW 12.7 Plt Count 117 L MPV 12.9 H Immature Gran % (Auto) Cancelled Neut % (Auto) Cancelled Lymph % (Auto) Cancelled [place] % (Auto) Cancelled Eos % (Auto) Cancelled Baso % (Auto) Cancelled Lymph # (Auto) Cancelled [place] # (Auto) Cancelled Eos # (Auto) Cancelled Baso # (Auto) Cancelled Abs Immat Gran (auto) Cancelled Absolute Neuts (auto) Cancelled Absolute Nucleated RBC 0.000 Nucleated RBC % (auto) 0.0 Neutrophils % (Manual) 58 Band Neutrophils % 20 H Lymphocytes % (Manual) 18 L Monocytes % (Manual) 2 Eosinophils % (Manual) Metamyelocytes % 2 Abs Neuts (Manual) 15.5 H Lymphocytes # (Manual) 3.6 Monocytes # (Manual) 0.4 Eosinophils # (Manual) Metamyelocytes # 0.4 Platelet Estimate DECREASED Plt Morphology Comment NORMAL RBC Morphology NORMAL VBG pH VBG pCO2 VBG pO2 VBG HCO3 VBG O2 Saturation VBG Base Excess Sodium 149 H Potassium 3.3 Chloride 109 H Carbon Dioxide 20 L Anion Gap 23 H BUN 66 H Creatinine 2.70 H Estim Creat Clear Calc 34.3 Estimated GFR 24 POC Glucose Random Glucose 184 H Calcium 9.9 D Phosphorus 5.5 H Magnesium 2.8 H Total Bilirubin 4.1 H AST 56 H ALT 50 H Alkaline Phosphatase 97 Total Protein 8.9 H Albumin 4.0 Microbiology Microbiology Results: Microbiology 03/03/24 19:20 Blood - Venous Blood Culture - Preliminary No growth after 48 hours. 03/03/24 17:55 Blood - Venous Blood Culture - Preliminary No growth after 48 hours. 03/03/24 Unknown Urine Catheterized - Straight Catheter Urine Culture - Preliminary No growth to date. Progress Note: A&P Assessment and plan (1) Cardiogenic shock: Status: Acute (2) Aspiration pneumonia: Status: Acute (3) Acute hypoxemic respiratory failure: Status: Acute (4) Partial small bowel obstruction: Status: Acute (5) Alcohol use disorder: Status: Acute (6) Acute encephalopathy: Status: Acute (7) Acute metabolic encephalopathy: Status: Acute Plan Neuro: Acute encephalopathy possibly due to hepatic encephalopathy and alcohol withdrawal Unable to give large doses of lactulose due to small bowel obstruction and poor rectal tone Ammonia 107 CT head and CTA of head and neck both did not find any acute abnormality continues to be on Propofol; Precedex changed to Versed drip yesterday due to ongoing fever. Will taper off propofol. Close neurological status monitoring in the ICU every hour Cardiac: Cardiogenic shock secondary to positive pressure ventilation Currently on Levophed support, we will up titrate the Levophed as needed to keep the map above 65 mm Hg Respiratory: Acute hypoxemic respiratory failure due to left-sided aspiration pneumonia Intubated the patient due to aspiration, fecal content noted in oropharyngeal airway while intubation Currently on ventilator support On PRVC mode FiO2 50%, PEEP 5, TV 400, RR 20 Peak pressures and plateau pressures are under the curve Ventilator management bundle with head end elevation, aspiration precaution, chlorhexidine mouthwash, daily awakening trials, daily spontaneous breathing trials GI: Partial small-bowel obstruction: General surgery upon for conservative management With keep the patient on scheduled Reglan q.8 hours, continue pantoprazole daily NG tube for intermittent suction, output is over 2litres in past 24 hrs. 950cc since 7AM this morning Alcoholic hepatitis: AST ALT improving Maddrey's discriminant function score: 12.2, no indication for prenisolone Renal: Acute kidney injury: Possibly secondary to small-bowel obstruction Fluid balance net-1.9 L yesterday, we will give him standing IV fluids today LR at 100 cc/hour We will do a bedside echo to evaluate his volume status to see if he needs bolus fluids Baseline creatinine normal We will closely monitor I's and O's Avoid nephrotoxic medications Hypernatremia: sodium 149, started the patient on standing free fluids. Hypokalemia: will aggressively replace given his small bowel obstruction needed 100meq yesterday and 3.4 this morning will replace 40meq. Heme: Chronic anemia, closely monitor H&H, transfuse for hemoglobin less than 7 grams/deciliter Endocrine: Blood sugars under control Sliding scale insulin as needed Infectious disease: Chest x-ray showing lower lobe pneumonia Pancultures negative Antibiotics de-escalated to Zosyn will resend blood cultures. Musculoskeletal: Decubitus ulcer prevention protocol Lines: Peripheral Prophylaxis: Heparin, pantoprazole Critical care time spent is about 40 minutes and managing this critically ill patient with multiple organ failures including acute encephalopathy, acute respiratory failure on ventilator support, shock, acute kidney injury. This time is mainly spent ventilator management, sedation management, changing ventilator settings, close hemodynamic monitoring vasopressor management. Quality Stroke Does the patient have a stroke diagnosis?: No VTE Prior VTE?: No VTE Risk Level:: Medical - moderate - high VTE Device Contraindication: Treatment Not Indicated VTE Drug Contraindication: N/A - Med Ordered
[2024-03-06] MEDS: Lactated Ringers 1,000 ML 100 ML IVCONT ×2 (11:28→19:32)
[2024-03-06] MEDS: Metoclopramide HCl 10 MG/2 ML VIAL IVPUSH ×3 (11:29→20:48)
[2024-03-06] MEDS: Heparin Sodium,Porcine 5,000 UNIT/ML VIAL 5000 UNIT SUBCUT ×2 (11:29→16:00)
[2024-03-06 11:34] LABS: Ammonia 66 umol/L (13-55)
[2024-03-06] MEDS: Potassium Chloride/H20 10 MEQ/100 ML PIGGYBACK 100 MEQ IV ×4 (11:39→17:05)
[2024-03-06 12:01] LABS: Glucose, Whole Blood 198 mg/dL (60-115)
[2024-03-06] MEDS: fentaNYL citrate/PF 100 MCG/2 ML VIAL 50 MCG IVPUSH (17:30)
--- NOTE | 2024-03-06 17:33 | PC.NURSE ---
Assumed care of patient 0700 Pt given lactulose DC per orders Sedation vacation started 10:30AM. Pt tolerating PC vent settings 14/14/8.0/40% 16:30 MD notified for high HR 125 and increasing RR. Per MD give 50 mcg fentanyl prn and continue sedation vacation Pt does not open eyes, does not withdraw to pain, track or follow at this time.
[2024-03-06 18:05] LABS: Glucose, Whole Blood 188 mg/dL (60-115)
[2024-03-07] VITALS (30 sets, daily range): BP systolic 93–133; BP diastolic 58–90; PULSE 93–115; RESP 16–26; TEMP 35–37.3; O2SAT 94–98; BMI 32.7
[2024-03-07 00:29] LABS: Glucose, Whole Blood 184 mg/dL (60-115)
[2024-03-07 01:08] LABS: Glucose, Whole Blood 186 mg/dL (60-115)
[2024-03-07] MEDS: Heparin Sodium,Porcine 5,000 UNIT/ML VIAL 5000 UNIT SUBCUT ×3 (01:10→16:07)
[2024-03-07] MEDS: Insulin Lispro 100 UNIT/ML 3 ML VIAL SUBCUT ×4 (01:10→18:37)
[2024-03-07] MEDS: Piperacillin Sodium/Tazobactam 3.375 GM in 0.9 % Sodium Chloride 50 ML IV ×2 (02:29→07:39)
[2024-03-07] MEDS: Metoclopramide HCl 10 MG/2 ML VIAL IVPUSH ×4 (02:31→21:13)
[2024-03-07] MEDS: Lactated Ringers 1,000 ML 100 ML IVCONT ×3 (02:42→22:44)
[2024-03-07] MEDS: Lactulose 320 GM/480 ML SOLUTION 200 GM PR ×4 (02:44→19:53)
[2024-03-07 05:14] LABS: Glucose, Whole Blood 172 mg/dL (60-115)
[2024-03-07] MEDS: Pantoprazole Sodium 40 MG/10 ML VIAL IVPUSH (05:20)
[2024-03-07 05:27] LABS: Venous Blood Gas Refer to POC result
[2024-03-07 05:28] LABS: VBG Base Excess -2.8 mmol/L; VBG HCO3 19 mmol/L (22-26); VBG pCO2 28 mmHg; VBG pH 7.44 (7.32-7.43); VBG pO2 75 mmHg
--- NOTE | 2024-03-07 05:38 | PC.NURSE ---
Addendum entered by Tay Dawkins RN 03/07/24 05:45: N.B. OG-TUBE HAS DRAINED 9.6 LITERS SINCE INSERTED POST-INTUBATION 03/04/24 Original Note: CARE ASSUMED 7PM...REMAINS OFF SEDATION SINCE 10:30AM 03/06/24 PER SHIFT REPORT....REMAINS INTUBATED/PCV VENT SUPPORT..DOES NOT OPEN EYES..PUPILS 2MM AND SLUGGINH..(+) WEAK COUGH REFLEX..MINIMAL GAG REFLEX...RARE SLIGHT MOVEMENT OF EXTREMETIES BUT NOT TO COMMAND...OG-TUBE CONTINUES TO DRAIN LARGE AMOUNTS BILIOUS DRAINAGE,,,1500ml THIS SHIFT...ICU PA AWARE..STATED ABDOMEN LESS DISTENDED THAN AT ADMIT TO ICU..PARISI WITH MARGINAL OUTPUT SYDNEE URINE..RECTAL TUBE REMAINS IN PLACE FOR SCHEDULED LACTULOSE ENEMAS PER JUL....MONITOR INITIALLY JUNCTIONAL TACH VS. SINUS TACH HR 120...CURRENTLY NSR TO S.TACH HR 96-102...COOLING BLANKET PLACED ON MONITOR/YOUSUF FOR NORMALIZED TEMPERATURES
[2024-03-07 05:42] LABS: MANUAL DIFF FLAG NO
[2024-03-07 05:44] LABS: Basophils Absolute Auto 0.1 X10*3/uL (0.0-0.2); Basophils Percent Auto 0.5 % (0-2); Eosinophils Absolute Auto 0.1 X10*3/uL (0.0-0.4); Eosinophils Percent Auto 0.5 % (0-4); Hemoglobin 16.1 g/dl (14.0-18.0); Imm Gran Abs Auto 0.18 X10*3/uL (0.00-0.03); Imm Gran Pct Auto 1.4 % (0.0-0.4); Lymphocytes Absolute Auto 1.9 X10*3/uL (1.2-4.9); Lymphocytes Percent Auto 13.9 % (20-40); Mean Corpuscular HGB Conc 34.3 g/dl (31.0-36.0); Mean Corpuscular Hemoglobin 32.9 pg (27.0-33.0); Mean Corpuscular Volume 95.9 fL (80.0-98.0); Monocytes Absolute Auto 1.3 X10*3/uL (0.1-1.2); Monocytes Percent Auto 9.6 % (2-11); Neutrophils Absolute Auto 9.9 x10*3/uL (2.0-8.3); Neutrophils Percent Auto 74.1 % (45-73); Platelet Count 141 X10*3/uL (160-400); Red Cell Distribution Width 12.8 % (11.0-16.0); White Blood Count 13.3 X10*3/uL (4.8-10.8)
[2024-03-07 06:10] LABS: Alanine Aminotransferase 39 U/L (0-40); Albumin Level 3.8 g/dL (3.5-5.0); Alkaline Phosphatase 102 U/L (39-117); Anion Gap 25 (12-20); Aspartate Amino Transferase 31 U/L (5-37); Blood Urea Nitrogen 95 mg/dL (9-16); Calcium 9.3 mg/dL (8.4-10.2); Carbon Dioxide 20 mmol/L (22-29); Chloride 111 mmol/L (96-108); Creatinine Clr Calc Pharmacy 25.6; Estimated Glomerular Filt Rate 18; Glucose Random 186 mg/dL (60-115); Phosphorus 7.5 mg/dL (2.7-4.5); Potassium 2.7 mmol/L (3.3-5.1); Sodium 153 mmol/L (135-145); Total Protein 8.6 g/dL (6.5-8.0)
[2024-03-07] MEDS: Potassium Chloride/H20 10 MEQ/100 ML PIGGYBACK 100 MEQ IV ×4 (06:20→09:30)
[2024-03-07] MEDS: 0.9 % Sodium Chloride Flush 3 ML SYRINGE IVFLUSH ×2 (07:39→16:22)
[2024-03-07] MEDS: Chlorhexidine Gluc Oral Rinse 15 ML MOUTHWASH BUCCAL ×3 (08:27→21:17)
--- NOTE | 2024-03-07 08:29 | P.PNCC_ITS ---
Subjective Subjective Date of Service: 03/07/24 Critical Care Time (minutes): 38 Comment: Continues to be on ventilator support Off Versed drip since yesterday morning, patient still unarousable. On as needed fentanyl pushes White count improving, fever curve improving Had 5.5 L of NG tube output yesterday, in total making 3.5 L net negative despite getting LR at 100 cc/hour. This is leading to hypernatremia and worsening ANNE-MARIE Physical Exam 2 Vital Signs: Vital Signs: Last Vital Signs Temp 98.2 F 03/07/24 08:00 Pulse 99 03/07/24 08:00 Resp 18 03/07/24 08:00 BP 121/80 03/07/24 08:00 Pulse Ox 95 03/07/24 08:00 O2 Del Method Mechanical Ventil ation 03/07/24 08:00 FiO2 40 03/07/24 08:00 BMI result Body Mass Index 32.7 General: acute distress, ill appearing and tired appearing Nutritional Appearance: well nourished and overweight Eyes: appearance normal, both eyes and all related structures; Alignment and Position: alignment normal and position normal Neck: No lymphadenopathy, no thyromegaly Resp: bilateral air entry equal, crackles heard in the left lower lung area Cardio: Regular rate, regular rhythm; Heart sounds: S1 normal heart sound present and S2 normal heart sound present GI: soft, nontender, no guarding, no hepatosplenomegaly : bladder normal to inspection, bladder normal to palpation, no renal angle tenderness Skin: no rashes or lesions noted and elasticity normal Neuro: No focal deficits, unresponsive Objective Data Labs 03/07/24 05:17 03/07/24 05:17 Labs: Laboratory Results - last 24 hr 03/06/24 03/06/24 03/06/24 11:21 11:58 18:01 WBC RBC Hgb Hct MCV MCH MCHC RDW Plt Count MPV Immature Gran % (Auto) Neut % (Auto) Lymph % (Auto) [place] % (Auto) Eos % (Auto) Baso % (Auto) Lymph # (Auto) [place] # (Auto) Eos # (Auto) Baso # (Auto) Abs Immat Gran (auto) Absolute Neuts (auto) Absolute Nucleated RBC Nucleated RBC % (auto) VBG pH VBG pCO2 VBG pO2 VBG HCO3 VBG O2 Saturation VBG Base Excess Sodium Potassium Chloride Carbon Dioxide Anion Gap BUN Creatinine Estim Creat Clear Calc Estimated GFR POC Glucose 198 H 188 H Random Glucose Calcium Phosphorus Magnesium Total Bilirubin AST ALT Alkaline Phosphatase Ammonia 66 H Total Protein Albumin 03/07/24 03/07/24 03/07/24 00:26 01:04 05:10 WBC RBC Hgb Hct MCV MCH MCHC RDW Plt Count MPV Immature Gran % (Auto) Neut % (Auto) Lymph % (Auto) [place] % (Auto) Eos % (Auto) Baso % (Auto) Lymph # (Auto) [place] # (Auto) Eos # (Auto) Baso # (Auto) Abs Immat Gran (auto) Absolute Neuts (auto) Absolute Nucleated RBC Nucleated RBC % (auto) VBG pH VBG pCO2 VBG pO2 VBG HCO3 VBG O2 Saturation VBG Base Excess Sodium Potassium Chloride Carbon Dioxide Anion Gap BUN Creatinine Estim Creat Clear Calc Estimated GFR POC Glucose 184 H 186 H 172 H Random Glucose Calcium Phosphorus Magnesium Total Bilirubin AST ALT Alkaline Phosphatase Ammonia Total Protein Albumin 03/07/24 03/07/24 05:17 05:22 WBC 13.3 H RBC 4.90 Hgb 16.1 Hct 47.0 MCV 95.9 MCH 32.9 MCHC 34.3 RDW 12.8 Plt Count 141 L MPV 13.0 H Immature Gran % (Auto) 1.4 H Neut % (Auto) 74.1 H Lymph % (Auto) 13.9 L [place] % (Auto) 9.6 Eos % (Auto) 0.5 Baso % (Auto) 0.5 Lymph # (Auto) 1.9 [place] # (Auto) 1.3 H Eos # (Auto) 0.1 Baso # (Auto) 0.1 Abs Immat Gran (auto) 0.18 H Absolute Neuts (auto) 9.9 H Absolute Nucleated RBC 0.000 Nucleated RBC % (auto) 0.0 VBG pH 7.44 H VBG pCO2 28 VBG pO2 75 VBG HCO3 19 L VBG O2 Saturation 93.0 VBG Base Excess -2.8 Sodium 153 H Potassium 2.7 L* Chloride 111 H Carbon Dioxide 20 L Anion Gap 25 H BUN 95 H Creatinine 3.60 H Estim Creat Clear Calc 25.6 Estimated GFR 18 POC Glucose Random Glucose 186 H Calcium 9.3 D Phosphorus 7.5 H Magnesium 3.0 H Total Bilirubin 3.0 H AST 31 ALT 39 Alkaline Phosphatase 102 Ammonia Total Protein 8.6 H Albumin 3.8 Microbiology Microbiology Results: Microbiology 03/03/24 Unknown Urine Catheterized - Straight Catheter Urine Culture - Final No growth. 03/03/24 19:20 Blood - Venous Blood Culture - Preliminary No growth after 48 hours. 03/03/24 17:55 Blood - Venous Blood Culture - Preliminary No growth after 48 hours. Progress Note: A&P Assessment and plan (1) Cardiogenic shock: Status: Acute (2) Aspiration pneumonia: Status: Acute (3) Acute hypoxemic respiratory failure: Status: Acute (4) Partial small bowel obstruction: Status: Acute (5) Alcohol use disorder: Status: Acute (6) Acute encephalopathy: Status: Acute (7) Alcohol dependence: Status: Acute (8) Acute metabolic encephalopathy: Status: Acute Plan Neuro: Acute encephalopathy possibly due to hepatic encephalopathy and alcohol withdrawal Unable to give large doses of lactulose due to small bowel obstruction and poor rectal tone Ammonia [place] to [address] head and CTA of head and neck both did not find any acute abnormality Off Versed since yesterday morning primary receiving as needed fentanyl pushes. We will get MRI of the brain to rule out any other intracranial pathologies Close neurological status monitoring in the ICU every hour Cardiac: Cardiogenic shock secondary to positive pressure ventilation Currently off of Levophed support Respiratory: Acute hypoxemic respiratory failure due to left-sided aspiration pneumonia Intubated the patient due to aspiration, fecal content noted in oropharyngeal airway while intubation Currently on ventilator support On PRVC mode FiO2 40%, PEEP 5, TV 400, RR 20, unable to do weaning trials given his poor mentation Peak pressures and plateau pressures are under the curve Ventilator management bundle with head end elevation, aspiration precaution, chlorhexidine mouthwash GI: Partial small-bowel obstruction: General surgery upon for conservative management Since the output is about 5 L from the NG tube we will reconsult surgery for relook With keep the patient on scheduled Reglan q.8 hours, continue pantoprazole daily NG tube for intermittent suction, output is over 2litres in past 24 hrs. 950cc since 7AM this morning Alcoholic hepatitis: AST ALT reversed to normal, bilirubin improving Maddrey's discriminant function score: 12.2, no indication for prenisolone Renal: Acute kidney injury: Possibly secondary to small-bowel obstruction on standing IV fluids today LR at 100 cc/hour Overall fluid balance net negative 3-1/2 L mainly due to above 5 L NG tube output We will give him 1 L of D5W bolus, we will add D5 water at 100 cc/hour Baseline creatinine normal We will closely monitor I's and O's Avoid nephrotoxic medications Hypernatremia: sodium 151, we will give D5 water bolus and standing D5 water. Hypokalemia: will aggressively replace given his small bowel obstruction needed 100meq yesterday in the process of getting 80 Heme: Chronic anemia, closely monitor H&H, transfuse for hemoglobin less than 7 grams/deciliter Endocrine: Blood sugars under control Sliding scale insulin as needed Infectious disease: Chest x-ray showing lower lobe pneumonia Pancultures negative Antibiotics escalated to Zosyn Musculoskeletal: Decubitus ulcer prevention protocol Lines: Peripheral Prophylaxis: Heparin, pantoprazole Bedside echo showed IVC 1.3 cm fluctuating in size, septum deviated towards the right. Ultrasound of the lung showed early B-lines in the left axillary and anterior cordoba, no effusions noted Patient has multiple organ failures including acute encephalopathy, acute kidney injury, acute hypoxemic respiratory failure with multiple electrolyte disturbances lung with small bowel obstruction. total critical time spent is about 38 minutes mainly on close hemodynamic monitoring, bedside echo ultrasound to guide the hemodynamics, ventilator management, close neurological status monitoring at this time is excluding any procedural time Quality Stroke Does the patient have a stroke diagnosis?: No VTE Prior VTE?: No VTE Risk Level:: Medical - moderate - high VTE Device Contraindication: Treatment Not Indicated VTE Drug Contraindication: N/A - Med Ordered
[2024-03-07] MEDS: Dextrose 5 % 1,000 ML 999 ML IVCONT (09:18)
[2024-03-07] MEDS: Dextrose 5 % 1,000 ML 100 ML IVCONT ×2 (10:25→22:46)
--- NOTE | 2024-03-07 10:46 | MHC.CLN ---
RE: CONSULT PT REQUIRES TPN FOR NUTRITION SUPPORT R/T PROLONGED NPO STATUS AND PSBO DISCUSSED WITH MD DURING ROUNDS-PT TO RECEIVE CENTRAL LINE PT IS INTUBATED AND SEDATED CURRENTLY NPO DAY 3 REVIEWED LABS DISCUSSED WITH PHARMACY PLAN: 03/07/24 RECOMMEND TPN AT 40ML/HR TO PROVIDE 682KCALS, 48G PROTEIN, 144G DEXTROSE REPLETE LYTES NEEDED 03/08/24 RECOMMEND INCREASING TPN TO 60ML/HR TO PROVIDE 1022KCALS, 72G PROTEIN, 216G DEXTROSE REPLETE LYTES NEEDED, CHECK TRIGS 03/09/24 IF TRIGS WNL; RECOMMEND INCREASING TPN TO MAX GOAL RATE 80ML/HR WITH 50G LIPIDS TO PROVIDE 1863KCALS (23KCALS/KG BASED ON CMW), 96G PROTEIN (1.17G/KG), 288G DEXTROSE REPLETE LYTES NEEDED RD CAN BE REACHED VIA TIGER CONNECT DURING OFF HOURS IF NEEDED
--- NOTE | 2024-03-07 11:24 | W.PM.CCHP ---
Procedures Date of Service Date of Service: 03/07/24 Central Line Placement Left SC: Consent for Procedure: Elective - informed consent obtained Time out performed: Yes Sterile Technique Used: Yes Patient placed on monitor/pulse ox: Yes MD prep: mask, gown and gloves Central line prep: Chlorhexidine scrub and sterile drapes applied Ultrasound used for placement: Yes Central line lumen inserted: triple Post procedure: sutured in place, good blood return, all ports aspirated, flushed, capped and sterile dressing applied Post procedure x-ray: tip of catheter in good position and no pneumothorax seen Patient tolerated procedure: well Complications: none
--- NOTE | 2024-03-07 12:05 | MHC.CM.PN ---
Pt continues on ventilatory support in ICU: no sedation and no purposeful neurological return: plans for today include MRI of head to assess for extubation ability. Pt initially from home without services or DME but may need STR CM to reassess once pt can participate in evaluations.
[2024-03-07 12:57] LABS: Glucose, Whole Blood 247 mg/dL (60-115)
--- NOTE | 2024-03-07 13:50 | P.PNGS_ITS ---
Subjective Subjective Date of Service: 03/07/24 Interval history: Patient now intubated, sedated in ICU. Continues to have high output per NG tube with some output per rectal Turner. Abdominal x-rays reveal dilated loops of small bowel possibly suggestive of partial small-bowel obstruction. High output leading to hypernatremia. Physical Exam 2 Vital Signs: Vital Signs: Last Vital Signs Temp 98.8 F 03/07/24 13:00 Pulse 93 03/07/24 13:00 Resp 18 03/07/24 13:00 BP 120/76 03/07/24 13:00 Pulse Ox 97 03/07/24 13:00 O2 Del Method Mechanical Ventil ation 03/07/24 13:00 FiO2 40 03/07/24 13:00 BMI result Body Mass Index 32.7 Const: Other: Sedated, intubated Resp: Other: Breathing on vent. GI: Other: Distended, tympanitic but soft. Reducible umbilical hernia. Skin: Other: Warm and dry Objective Data Active Medications Acetaminophen (Acetaminophen 325 Mg Tablet) 650 mg PO Q6H PRN PRN Reason: Pain, Mild (Pain Scale 1-3), fever or headache Last Admin: 03/04/24 20:34 Dose: 650 mg Documented By: JOSE Chlorhexidine Gluconate (Chlorhexidine Gluc Oral Rinse 15 Ml Mouthwash) 15 ml BUCCAL TID GUERO Last Admin: 03/07/24 08:27 Dose: 15 ml Documented By: BRAVO Fentanyl (Fentanyl Citrate/Pf 100 Mcg/2 Ml Vial) 50 mcg IVPUSH Q2H PRN; Protocol PRN Reason: Restlessness / Pain 4-6 Last Admin: 03/06/24 17:30 Dose: 50 mcg Documented By: JOSE LUIS Heparin Sodium (Porcine) (Heparin Sodium,Porcine 5,000 Unit/Ml Vial) 5,000 unit SUBCUT Q8H GUERO Last Admin: 03/07/24 08:27 Dose: 5,000 unit Documented By: BRAVO Propofol (Diprivan) 1,000 mg in 100 mls @ 0 mls/hr IVCONT .Q0M GUERO; Protocol Last Titration: 03/06/24 16:33 Dose: Infused Documented By: JOSE LUIS Dexmedetomidine HCl (Precedex) 400 mcg in 100 mls @ 0 mls/hr IVCONT .Q0M GUERO; Protocol Last Titration: 03/05/24 16:09 Dose: Infused Documented By: LOIS Norepinephrine Bitartrate (Levophed) 8 mg in 250 mls @ 0 mls/hr IVCONT .Q0M GUERO; Protocol Last Titration: 03/06/24 16:12 Dose: 0 mcg/kg/min, 0 mls/hr Documented By: JOSE LUIS Midazolam HCl (Versed) 50 mg in 50 mls @ 4 mls/hr IVCONT .[id number] GUERO Last Infusion: 03/07/24 06:25 Dose: Infused Documented By: JOCE Lactated Ringer's (Lr) 1,000 mls @ 100 mls/hr IVCONT .Q10H GUERO Last Admin: 03/07/24 12:26 Dose: 100 mls/hr Documented By: BRAVO Piperacillin Sod/Tazobactam (Sod 2.25 gm/ Sodium Chloride) 50 mls @ 100 mls/hr IV Q6H GUERO Dextrose (D5w) 1,000 mls @ 999 mls/hr IVCONT .Q1H1M GUERO Last Infusion: 03/07/24 10:28 Dose: Infused Documented By: BRAVO Nutrition (Parenteral) (Parenteral Nutrition) 960 mls @ 40 mls/hr IV .Q24H GUERO; Protocol Stop: 03/08/24 20:59 Dextrose (D5w) 1,000 mls @ 100 mls/hr IVCONT .Q10H GUERO Insulin Human Lispro (Insulin Lispro 100 Unit/Ml 3 Ml Vial) 0 unit SUBCUT Q6H GUERO; Protocol Last Admin: 03/07/24 05:15 Dose: 2 unit Documented By: JOCE Lactulose (Lactulose 20 Gm/30 Ml Solution) 20 gm PO Q8H GUERO Last Admin: 03/06/24 05:35 Dose: Not Given Documented By: DIPTI Non-Admin Reason: NPO Lactulose (Lactulose 320 Gm/480 Ml Solution) 200 gm MI Q6H GUERO Last Admin: 03/07/24 08:35 Dose: 200 gm Documented By: BRAVO Metoclopramide HCl (Metoclopramide Hcl 10 Mg/2 Ml Vial) 10 mg IVPUSH Q6H GUERO Last Admin: 03/07/24 08:30 Dose: 10 mg Documented By: BRAVO Ondansetron HCl (Ondansetron Hcl 4 Mg/2 Ml Vial) 4 mg IVPUSH Q8H PRN PRN Reason: Nausea And Vomiting Pharmacy Consult (Consult Rx Parenteral Nutrition Ordering) 1 each MISCELLANE DAILY PRN PRN Reason: Consult order Sodium Chloride (0.9 % Sodium Chloride Flush 3 Ml Syringe) 3 ml IVFLUSH QSHIFT [facility] Last Admin: 03/07/24 07:39 Dose: 3 ml Documented By: BRAVO Labs 03/07/24 05:17 03/07/24 05:17 Labs: Laboratory Results - last 24 hr 03/06/24 03/07/24 03/07/24 18:01 00:26 01:04 MCV MCH MCHC RDW Plt Count MPV Immature Gran % (Auto) Neut % (Auto) Lymph % (Auto) Long % (Auto) Eos % (Auto) Baso % (Auto) Lymph # (Auto) Long # (Auto) Eos # (Auto) Baso # (Auto) Abs Immat Gran (auto) Absolute Neuts (auto) Absolute Nucleated RBC Nucleated RBC % (auto) VBG pH VBG pCO2 VBG pO2 VBG HCO3 VBG O2 Saturation VBG Base Excess Anion Gap Estim Creat Clear Calc Estimated GFR POC Glucose 188 H 184 H 186 H Random Glucose Calcium Phosphorus Magnesium Total Bilirubin AST ALT Alkaline Phosphatase Total Protein Albumin 03/07/24 03/07/24 03/07/24 05:10 05:17 05:22 MCV 95.9 MCH 32.9 MCHC 34.3 RDW 12.8 Plt Count 141 L MPV 13.0 H Immature Gran % (Auto) 1.4 H Neut % (Auto) 74.1 H Lymph % (Auto) 13.9 L Long % (Auto) 9.6 Eos % (Auto) 0.5 Baso % (Auto) 0.5 Lymph # (Auto) 1.9 Long # (Auto) 1.3 H Eos # (Auto) 0.1 Baso # (Auto) 0.1 Abs Immat Gran (auto) 0.18 H Absolute Neuts (auto) 9.9 H Absolute Nucleated RBC 0.000 Nucleated RBC % (auto) 0.0 VBG pH 7.44 H VBG pCO2 28 VBG pO2 75 VBG HCO3 19 L VBG O2 Saturation 93.0 VBG Base Excess -2.8 Anion Gap 25 H Estim Creat Clear Calc 25.6 Estimated GFR 18 POC Glucose 172 H Random Glucose 186 H Calcium 9.3 D Phosphorus 7.5 H Magnesium 3.0 H Total Bilirubin 3.0 H AST 31 ALT 39 Alkaline Phosphatase 102 Total Protein 8.6 H Albumin 3.8 03/07/24 12:53 MCV MCH MCHC RDW Plt Count MPV Immature Gran % (Auto) Neut % (Auto) Lymph % (Auto) Long % (Auto) Eos % (Auto) Baso % (Auto) Lymph # (Auto) Long # (Auto) Eos # (Auto) Baso # (Auto) Abs Immat Gran (auto) Absolute Neuts (auto) Absolute Nucleated RBC Nucleated RBC % (auto) VBG pH VBG pCO2 VBG pO2 VBG HCO3 VBG O2 Saturation VBG Base Excess Anion Gap Estim Creat Clear Calc Estimated GFR POC Glucose 247 H Random Glucose Calcium Phosphorus Magnesium Total Bilirubin AST ALT Alkaline Phosphatase Total Protein Albumin Microbiology Microbiology Results: Microbiology 03/06/24 11:21 Blood Culture - Preliminary Blood - Venous No growth after 24 hours. 03/06/24 11:21 Blood Culture - Preliminary Blood - Venous No growth after 24 hours. 03/03/24 Unknown Urine Culture - Final Urine Catheterized - Straight Catheter No growth. Procedures Date of Service Date of Service: 03/07/24 Progress Note: A&P Assessment and plan (1) Partial small bowel obstruction: Status: Acute Plan 58-year-old male patient with acute encephalopathy, cardiogenic shock, respiratory failure, alcoholic hepatitis and hypernatremia with continued high output from nasogastric tube. On examination the patient is distended and tympanitic suggestive of either ileus or partial small-bowel obstruction. Difficult to elicit tenderness due to his sedation. Abdominal x-ray continues to show dilated loops of small bowel. The high output may be due to the nasogastric tube going beyond the pylorus. He unfortunately is a poor surgical candidate with his multiple comorbidities so options are limited. Time Spent With Patient Time: Total time managing care of this patient today ____ minutes. Quality Stroke Does the patient have a stroke diagnosis?: No VTE Prior VTE?: No VTE Risk Level:: Medical - moderate - high VTE Device Contraindication: Treatment Not Indicated VTE Drug Contraindication: N/A - Med Ordered
[2024-03-07] MEDS: Piperacillin Sodium/Tazobactam 2.25 GM in 0.9 % Sodium Chloride 50 ML IV ×2 (14:08→19:20)
[2024-03-07 15:31] LABS: Anion Gap 18 (12-20); Blood Urea Nitrogen 97 mg/dL (9-16); Calcium 8.9 mg/dL (8.4-10.2); Carbon Dioxide 19 mmol/L (22-29); Chloride 112 mmol/L (96-108); Creatinine Clr Calc Pharmacy 27.3; Estimated Glomerular Filt Rate 19; Glucose Random 202 mg/dL (60-115); Potassium 2.7 mmol/L (3.3-5.1); Sodium 146 mmol/L (135-145)
[2024-03-07] MEDS: propofoL 1,000 MG/100 ML VIAL 17.39 MG IVCONT (16:14)
[2024-03-07 17:15] LABS: Anion Gap 20 (12-20); Blood Urea Nitrogen 101 mg/dL (9-16); Calcium 8.8 mg/dL (8.4-10.2); Carbon Dioxide 17 mmol/L (22-29); Chloride 113 mmol/L (96-108); Creatinine Clr Calc Pharmacy 27.8; Estimated Glomerular Filt Rate 19; Glucose Random 171 mg/dL (60-115); Potassium 2.9 mmol/L (3.3-5.1); Sodium 147 mmol/L (135-145)
[2024-03-07 18:34] LABS: Glucose, Whole Blood 156 mg/dL (60-115)
[2024-03-07] MEDS: Potassium Chloride/H20 40 MEQ/100 ML PIGGYBACK 50 MEQ IV (18:37)
[2024-03-07 18:47] LABS: Alanine Aminotransferase 34 U/L (0-40); Albumin Level 3.6 g/dL (3.5-5.0); Alkaline Phosphatase 92 U/L (39-117); Anion Gap 19 (12-20); Aspartate Amino Transferase 27 U/L (5-37); Bilirubin Total 2.4 mg/dL (0.0-1.0); Blood Urea Nitrogen 104 mg/dL (9-16); Calcium 8.7 mg/dL (8.4-10.2); Carbon Dioxide 22 mmol/L (22-29); Chloride 111 mmol/L (96-108); Creatinine Clr Calc Pharmacy 27.6; Estimated Glomerular Filt Rate 19; Glucose Random 151 mg/dL (60-115); Potassium 2.8 mmol/L (3.3-5.1); Sodium 149 mmol/L (135-145); Total Protein 8.2 g/dL (6.5-8.0)
[2024-03-07] MEDS: fentaNYL citrate/PF 100 MCG/2 ML VIAL 50 MCG IVPUSH (20:15)
[2024-03-07] MEDS: Parenteral Nutrition 960 ML 40 ML IV (21:12)
[2024-03-08] VITALS (29 sets, daily range): BP systolic 107–150; BP diastolic 57–90; PULSE 94–112; RESP 12–29; TEMP 34.7–37.7; O2SAT 93–98; BMI 32.5
[2024-03-08] MEDS: Potassium Chloride/H20 40 MEQ/100 ML PIGGYBACK 50 MEQ IV ×5 (00:06→23:31)
[2024-03-08 00:22] LABS: Glucose, Whole Blood 273 mg/dL (60-115)
[2024-03-08 00:25] LABS: Alanine Aminotransferase 31 U/L (0-40); Albumin Level 3.4 g/dL (3.5-5.0); Alkaline Phosphatase 86 U/L (39-117); Anion Gap 17 (12-20); Aspartate Amino Transferase 37 U/L (5-37); Bilirubin Total 2.3 mg/dL (0.0-1.0); Blood Urea Nitrogen 105 mg/dL (9-16); Calcium 8.8 mg/dL (8.4-10.2); Carbon Dioxide 22 mmol/L (22-29); Chloride 110 mmol/L (96-108); Creatinine Clr Calc Pharmacy 29.6; Estimated Glomerular Filt Rate 21; Glucose Random 300 mg/dL (60-115); Sodium 146 mmol/L (135-145)
[2024-03-08] MEDS: Insulin Lispro 100 UNIT/ML 3 ML VIAL SUBCUT ×5 (00:28→23:30)
[2024-03-08 01:57] LABS: Glucose, Whole Blood 261 mg/dL (60-115)
[2024-03-08] MEDS: Lactulose 320 GM/480 ML SOLUTION 200 GM PR (02:02)
[2024-03-08] MEDS: fentaNYL citrate/PF 100 MCG/2 ML VIAL 50 MCG IVPUSH ×4 (02:06→09:45)
[2024-03-08] MEDS: Heparin Sodium,Porcine 5,000 UNIT/ML VIAL 5000 UNIT SUBCUT ×3 (02:18→17:56)
[2024-03-08] MEDS: Piperacillin Sodium/Tazobactam 2.25 GM in 0.9 % Sodium Chloride 50 ML IV ×4 (02:24→20:00)
[2024-03-08] MEDS: Metoclopramide HCl 10 MG/2 ML VIAL IVPUSH ×4 (02:55→21:19)
[2024-03-08 04:40] LABS: VBG Base Excess -2.4 mmol/L; VBG HCO3 20 mmol/L (22-26); VBG pCO2 29 mmHg; VBG pH 7.44 (7.32-7.43); VBG pO2 61 mmHg
[2024-03-08 04:42] LABS: MANUAL DIFF FLAG NO
[2024-03-08 04:44] LABS: Basophils Absolute Auto 0.1 X10*3/uL (0.0-0.2); Basophils Percent Auto 0.9 % (0-2); Eosinophils Absolute Auto 0.1 X10*3/uL (0.0-0.4); Eosinophils Percent Auto 1.3 % (0-4); Hematocrit 43.2 % (42.0-52.0); Hemoglobin 14.6 g/dl (14.0-18.0); Imm Gran Pct Auto 1.2 % (0.0-0.4); Lymphocytes Absolute Auto 1.5 X10*3/uL (1.2-4.9); Lymphocytes Percent Auto 17.8 % (20-40); Mean Corpuscular HGB Conc 33.8 g/dl (31.0-36.0); Mean Corpuscular Hemoglobin 32.7 pg (27.0-33.0); Mean Corpuscular Volume 96.9 fL (80.0-98.0); Mean Platelet Volume 12.4 fL (9.4-12.4); Monocytes Absolute Auto 1.1 X10*3/uL (0.1-1.2); Monocytes Percent Auto 13.7 % (2-11); Neutrophils Absolute Auto 5.3 x10*3/uL (2.0-8.3); Neutrophils Percent Auto 65.1 % (45-73); Platelet Count 122 X10*3/uL (160-400); Red Blood Count 4.46 X10*6/uL (4.60-5.80); Red Cell Distribution Width 12.7 % (11.0-16.0); White Blood Count 8.2 X10*3/uL (4.8-10.8)
[2024-03-08 04:44] LABS: Venous Blood Gas Refer to POC result
[2024-03-08 05:05] LABS: Albumin Level 3.4 g/dL (3.5-5.0); Anion Gap 16 (12-20); Blood Urea Nitrogen 99 mg/dL (9-16); Calcium 8.9 mg/dL (8.4-10.2); Carbon Dioxide 21 mmol/L (22-29); Chloride 112 mmol/L (96-108); Creatinine Clr Calc Pharmacy 33.4; Estimated Glomerular Filt Rate 24; Glucose Random 232 mg/dL (60-115); Magnesium 2.8 mg/dL (1.6-2.6); Potassium 2.8 mmol/L (3.3-5.1); Sodium 146 mmol/L (135-145)
[2024-03-08] MEDS: 0.9 % Sodium Chloride Flush 3 ML SYRINGE IVFLUSH ×3 (07:32→23:31)
[2024-03-08] MEDS: Lactated Ringers 1,000 ML 100 ML IVCONT (08:37)
[2024-03-08] MEDS: Dextrose 5 % 1,000 ML 100 ML IVCONT ×2 (08:37→17:56)
[2024-03-08] MEDS: Chlorhexidine Gluc Oral Rinse 15 ML MOUTHWASH BUCCAL ×2 (08:40→14:51)
[2024-03-08 10:43] LABS: Triglycerides 155 mg/dL (<150)
--- NOTE | 2024-03-08 10:58 | P.PNCC_ITS ---
Subjective Subjective Date of Service: 03/08/24 Critical Care Time (minutes): 40 Comment: On ventilator support this morning Mental status is better this morning, continues to be off sedation and on as needed fentanyl MRI of the brain normal Renal function improving, hypernatremia improving, Fluid balance net positive 1.8 L today, GI output has slightly decreased Physical Exam 2 Vital Signs: Vital Signs: Last Vital Signs Temp 99.0 F 03/08/24 10:00 Pulse 102 H 03/08/24 10:00 Resp 20 03/08/24 10:00 BP 128/73 03/08/24 10:00 Pulse Ox 96 03/08/24 10:00 O2 Del Method Mechanical Ventil ation 03/08/24 10:00 FiO2 40 03/08/24 10:00 BMI result Body Mass Index 32.5 General: In some acute distress, ill appearing and tired appearing Nutritional Appearance: well nourished and overweight Eyes: appearance normal, both eyes and all related structures; Alignment and Position: alignment normal and position normal Neck: No lymphadenopathy, no thyromegaly Resp: bilateral air entry equal, occasional added sounds present Cardio: Regular rate, regular rhythm; Heart sounds: S1 normal heart sound present and S2 normal heart sound present GI: soft, nontender, no guarding, no hepatosplenomegaly : bladder normal to inspection, bladder normal to palpation, no renal angle tenderness Skin: no rashes or lesions noted and elasticity normal Neuro: Drowsy but easily arousable, no focal deficits Objective Data Labs 03/08/24 04:34 03/08/24 04:34 Labs: Laboratory Results - last 24 hr 03/07/24 03/07/24 03/07/24 12:53 15:09 16:44 WBC RBC Hgb Hct MCV MCH MCHC RDW Plt Count MPV Immature Gran % (Auto) Neut % (Auto) Lymph % (Auto) [place] % (Auto) Eos % (Auto) Baso % (Auto) Lymph # (Auto) [place] # (Auto) Eos # (Auto) Baso # (Auto) Abs Immat Gran (auto) Absolute Neuts (auto) Absolute Nucleated RBC Nucleated RBC % (auto) VBG pH VBG pCO2 VBG pO2 VBG HCO3 VBG O2 Saturation VBG Base Excess Sodium 146 H 147 H Potassium 2.7 L* 2.9 L* Chloride 112 H 113 H Carbon Dioxide 19 L 17 L Anion Gap 18 20 BUN 97 H 101 H Creatinine 3.37 H 3.31 H Estim Creat Clear Calc 27.3 27.8 Estimated GFR 19 19 POC Glucose 247 H Random Glucose 202 H 171 H Calcium 8.9 8.8 Phosphorus Magnesium Total Bilirubin AST ALT Alkaline Phosphatase Total Protein Albumin Triglycerides 03/07/24 03/07/24 03/08/24 18:18 18:31 00:07 WBC RBC Hgb Hct MCV MCH MCHC RDW Plt Count MPV Immature Gran % (Auto) Neut % (Auto) Lymph % (Auto) [place] % (Auto) Eos % (Auto) Baso % (Auto) Lymph # (Auto) [place] # (Auto) Eos # (Auto) Baso # (Auto) Abs Immat Gran (auto) Absolute Neuts (auto) Absolute Nucleated RBC Nucleated RBC % (auto) VBG pH VBG pCO2 VBG pO2 VBG HCO3 VBG O2 Saturation VBG Base Excess Sodium 149 H 146 H Potassium 2.8 L* 3.0 L Chloride 111 H 110 H Carbon Dioxide 22 22 Anion Gap 19 17 BUN 104 H 105 H Creatinine 3.34 H 3.11 H Estim Creat Clear Calc 27.6 29.6 Estimated GFR 19 21 POC Glucose 156 H Random Glucose 151 H 300 H Calcium 8.7 8.8 Phosphorus Magnesium Total Bilirubin 2.4 H 2.3 H AST 27 37 ALT 34 31 Alkaline Phosphatase 92 86 Total Protein 8.2 H 8.0 Albumin 3.6 3.4 L Triglycerides 03/08/24 03/08/24 03/08/24 00:18 01:54 04:29 WBC RBC Hgb Hct MCV MCH MCHC RDW Plt Count MPV Immature Gran % (Auto) Neut % (Auto) Lymph % (Auto) [place] % (Auto) Eos % (Auto) Baso % (Auto) Lymph # (Auto) [place] # (Auto) Eos # (Auto) Baso # (Auto) Abs Immat Gran (auto) Absolute Neuts (auto) Absolute Nucleated RBC Nucleated RBC % (auto) VBG pH 7.44 H VBG pCO2 29 VBG pO2 61 VBG HCO3 20 L VBG O2 Saturation 89.0 VBG Base Excess -2.4 Sodium Potassium Chloride Carbon Dioxide Anion Gap BUN Creatinine Estim Creat Clear Calc Estimated GFR POC Glucose 273 H 261 H Random Glucose Calcium Phosphorus Magnesium Total Bilirubin AST ALT Alkaline Phosphatase Total Protein Albumin Triglycerides 03/08/24 03/08/24 04:34 10:16 WBC 8.2 RBC 4.46 L Hgb 14.6 Hct 43.2 MCV 96.9 MCH 32.7 MCHC 33.8 RDW 12.7 Plt Count 122 L MPV 12.4 Immature Gran % (Auto) 1.2 H Neut % (Auto) 65.1 Lymph % (Auto) 17.8 L [place] % (Auto) 13.7 H Eos % (Auto) 1.3 Baso % (Auto) 0.9 Lymph # (Auto) 1.5 [place] # (Auto) 1.1 Eos # (Auto) 0.1 Baso # (Auto) 0.1 Abs Immat Gran (auto) 0.10 H Absolute Neuts (auto) 5.3 Absolute Nucleated RBC 0.000 Nucleated RBC % (auto) 0.0 VBG pH VBG pCO2 VBG pO2 VBG HCO3 VBG O2 Saturation VBG Base Excess Sodium 146 H Potassium 2.8 L* Chloride 112 H Carbon Dioxide 21 L Anion Gap 16 BUN 99 H Creatinine 2.76 H Estim Creat Clear Calc 33.4 Estimated GFR 24 POC Glucose Random Glucose 232 H Calcium 8.9 Phosphorus 3.0 Magnesium 2.8 H Total Bilirubin AST ALT Alkaline Phosphatase Total Protein Albumin 3.4 L Triglycerides 155 H Microbiology Microbiology Results: Microbiology 03/06/24 11:21 Blood - Venous Blood Culture - Preliminary No growth after 24 hours. 03/06/24 11:21 Blood - Venous Blood Culture - Preliminary No growth after 24 hours. 03/03/24 Unknown Urine Catheterized - Straight Catheter Urine Culture - Final No growth. 03/03/24 19:20 Blood - Venous Blood Culture - Preliminary No growth after 48 hours. 03/03/24 17:55 Blood - Venous Blood Culture - Preliminary No growth after 48 hours. Progress Note: A&P Assessment and plan (1) Aspiration pneumonia: Status: Acute (2) Acute hypoxemic respiratory failure: Status: Acute (3) Partial small bowel obstruction: Status: Acute (4) Alcohol use disorder: Status: Acute (5) Acute encephalopathy: Status: Acute (6) Alcohol dependence: Status: Acute (7) Acute metabolic encephalopathy: Status: Acute Plan Neuro: Acute encephalopathy possibly due to hepatic encephalopathy and alcohol withdrawal which is slowly improving Ammonia down to 66 2 days ago MRI of the brain, CT head and CTA of head and neck both did not find any acute abnormality Off Versed for past 48 hours, on as needed fentanyl pushes Close neurological status monitoring in the ICU every hour Cardiac: Cardiogenic shock secondary to positive pressure ventilation Currently off of Levophed support Respiratory: Acute hypoxemic respiratory failure due to left-sided aspiration pneumonia Intubated the patient due to aspiration, fecal content noted in oropharyngeal airway while intubation Currently on ventilator support On PRVC mode FiO2 40%, PEEP 5, TV 400, RR 20, place the patient on pressor support trials this morning- so far doing well. Possibly we will extubate patient this morning Peak pressures and plateau pressures are under the curve Ventilator management bundle with head end elevation, aspiration precaution, chlorhexidine mouthwash GI: Partial small-bowel obstruction: General surgery upon for conservative management Since the output is about 3 L from the NG tube; surgeon reconsulted yesterday who opined that he is a poor candidate for surgery. With keep the patient on scheduled Reglan q.8 hours, continue pantoprazole daily Continue NG tube for intermittent suction TPN for nutrition Alcoholic hepatitis: AST ALT reversed to normal, bilirubin improving Maddrey's discriminant function score: 12.2, no indication for prenisolone Renal: Acute kidney injury: Possibly secondary to small-bowel obstruction and large volume output through NG tube Renal function slowly improving with aggressive volume replacement, creatinine down to 2.82 Currently on 100 cc of LR at 100 cc of D5 water every hour, net fluid balance positive 1.8 yesterday. We will continue with aggressive hydration Baseline creatinine normal We will closely monitor I's and O's Avoid nephrotoxic medications Hypernatremia: Improving sodium down to 146 this morning Hypokalemia: will aggressively replace given his small bowel obstruction On scheduled 40 mEq t.i.d. receiving additional KCl as needed Target potassium>4 Heme: Chronic anemia, closely monitor H&H, transfuse for hemoglobin less than 7 grams/deciliter Endocrine: Blood sugars under control Sliding scale insulin as needed Infectious disease: Chest x-ray showing lower lobe pneumonia, which is improving on the repeat x-ray WBC count returned to normal Pancultures negative Antibiotics escalated to Zosyn Musculoskeletal: Decubitus ulcer prevention protocol Lines: Peripheral Prophylaxis: Heparin, pantoprazole Patient has multiple organ failure including acute encephalopathy, acute hypoxemic respiratory failure from aspiration pneumonia, partial small bowel obstruction, acute kidney injury. Total critical care time spent is about 40 minutes or ventilator management, close neurological status monitoring, changes in the ventilator setting, weaning trials, postextubation care at this time is excluding any procedural time Quality Stroke Does the patient have a stroke diagnosis?: No VTE Prior VTE?: No VTE Risk Level:: Medical - moderate - high VTE Device Contraindication: Treatment Not Indicated VTE Drug Contraindication: N/A - Med Ordered
[2024-03-08] MEDS: Potassium Chloride/H20 40 MEQ/100 ML PIGGYBACK 100 MEQ IV (11:00)
[2024-03-08 11:13] LABS: Glucose, Whole Blood 233 mg/dL (60-115)
[2024-03-08 14:01] LABS: MANUAL DIFF FLAG NO
[2024-03-08 14:15] LABS: Basophils Absolute Auto 0.1 X10*3/uL (0.0-0.2); Basophils Percent Auto 0.8 % (0-2); Eosinophils Absolute Auto 0.1 X10*3/uL (0.0-0.4); Eosinophils Percent Auto 1.1 % (0-4); Hematocrit 41.6 % (42.0-52.0); Hemoglobin 14.1 g/dl (14.0-18.0); Imm Gran Abs Auto 0.16 X10*3/uL (0.00-0.03); Imm Gran Pct Auto 1.7 % (0.0-0.4); Lymphocytes Absolute Auto 1.6 X10*3/uL (1.2-4.9); Lymphocytes Percent Auto 16.1 % (20-40); Mean Corpuscular HGB Conc 33.9 g/dl (31.0-36.0); Mean Corpuscular Hemoglobin 32.7 pg (27.0-33.0); Mean Corpuscular Volume 96.5 fL (80.0-98.0); Mean Platelet Volume 12.2 fL (9.4-12.4); Monocytes Absolute Auto 1.2 X10*3/uL (0.1-1.2); Monocytes Percent Auto 12.6 % (2-11); Neutrophils Absolute Auto 6.6 x10*3/uL (2.0-8.3); Neutrophils Percent Auto 67.7 % (45-73); Platelet Count 116 X10*3/uL (160-400); Red Blood Count 4.31 X10*6/uL (4.60-5.80); Red Cell Distribution Width 12.5 % (11.0-16.0); White Blood Count 9.7 X10*3/uL (4.8-10.8)
[2024-03-08 14:33] LABS: Anion Gap 15 (12-20); Blood Urea Nitrogen 88 mg/dL (9-16); Calcium 9.1 mg/dL (8.4-10.2); Carbon Dioxide 22 mmol/L (22-29); Chloride 111 mmol/L (96-108); Creatinine Clr Calc Pharmacy 41.8; Estimated Glomerular Filt Rate 31; Glucose Random 275 mg/dL (60-115); Potassium 3.8 mmol/L (3.3-5.1); Sodium 144 mmol/L (135-145)
[2024-03-08 17:54] LABS: Glucose, Whole Blood 273 mg/dL (60-115)
[2024-03-08] MEDS: Parenteral Nutrition 1,440 ML 60 ML IV (21:06)
[2024-03-08 23:26] LABS: Glucose, Whole Blood 252 mg/dL (60-115)
[2024-03-09] VITALS (15 sets, daily range): BP systolic 115–150; BP diastolic 76–91; PULSE 103–113; RESP 16–27; TEMP 36.2–37.5; O2SAT 91–98; BMI 31.4
[2024-03-09 00:29] LABS: Alanine Aminotransferase 33 U/L (0-40); Albumin Level 3.3 g/dL (3.5-5.0); Alkaline Phosphatase 87 U/L (39-117); Anion Gap 14 (12-20); Aspartate Amino Transferase 39 U/L (5-37); Bilirubin Total 2.7 mg/dL (0.0-1.0); Blood Urea Nitrogen 73 mg/dL (9-16); Carbon Dioxide 20 mmol/L (22-29); Chloride 113 mmol/L (96-108); Creatinine Clr Calc Pharmacy 56.8; Estimated Glomerular Filt Rate 44; Glucose Random 273 mg/dL (60-115); Potassium 3.9 mmol/L (3.3-5.1); Sodium 143 mmol/L (135-145); Total Protein 7.6 g/dL (6.5-8.0)
[2024-03-09] MEDS: Piperacillin Sodium/Tazobactam 2.25 GM in 0.9 % Sodium Chloride 50 ML IV ×4 (01:51→22:02)
[2024-03-09] MEDS: Heparin Sodium,Porcine 5,000 UNIT/ML VIAL 5000 UNIT SUBCUT ×3 (01:52→17:26)
[2024-03-09] MEDS: Dextrose 5 % 1,000 ML 100 ML IVCONT ×2 (03:39→12:29)
[2024-03-09] MEDS: Metoclopramide HCl 10 MG/2 ML VIAL IVPUSH ×4 (03:39→22:18)
[2024-03-09 04:39] LABS: VBG Base Excess -2.6 mmol/L; VBG HCO3 19 mmol/L (22-26); VBG pCO2 27 mmHg; VBG pH 7.46 (7.32-7.43); VBG pO2 52 mmHg
[2024-03-09 04:55] LABS: Venous Blood Gas Refer to POC result
[2024-03-09 05:56] LABS: Anion Gap 15 (12-20); Blood Urea Nitrogen 65 mg/dL (9-16); Calcium 9.1 mg/dL (8.4-10.2); Carbon Dioxide 20 mmol/L (22-29); Chloride 113 mmol/L (96-108); Creatinine Clr Calc Pharmacy 66.2; Estimated Glomerular Filt Rate 53; Glucose Random 244 mg/dL (60-115); Magnesium 2.6 mg/dL (1.6-2.6); Phosphorus 1.5 mg/dL (2.7-4.5); Potassium 3.9 mmol/L (3.3-5.1); Sodium 144 mmol/L (135-145)
[2024-03-09] MEDS: Insulin Lispro 100 UNIT/ML 3 ML VIAL SUBCUT ×3 (06:01→17:32)
[2024-03-09] MEDS: Potassium Phosphate/NS 15 MMOL/250 ML PLAST..BAG 62.5 MMOL IV (06:32)
[2024-03-09] MEDS: 0.9 % Sodium Chloride Flush 3 ML SYRINGE IVFLUSH ×2 (07:47→16:01)
[2024-03-09] MEDS: Potassium Chloride/H20 40 MEQ/100 ML PIGGYBACK 50 MEQ IV (09:02)
--- NOTE | 2024-03-09 10:29 | PM.CCPN ---
Subjective Subjective Date of Service: 03/09/24 Critical Care Time (minutes): 35 Comment: No new complaints, extubated yesterday tolerating liberation from ventilator very well Physical Exam Vital Signs: Vital Signs: Last Vital Signs Temp 99.3 F 03/09/24 08:00 Pulse 105 H 03/09/24 10:00 Resp 25 H 03/09/24 10:00 BP 115/76 03/09/24 10:00 Pulse Ox 95 03/09/24 10:00 O2 Del Method Room Air 03/09/24 10:00 O2 Flow Rate 2 03/09/24 07:00 FiO2 30 03/08/24 12:00 BMI result Body Mass Index 31.4 General: Not in acute distress Nutritional Appearance: well nourished and overweight Eyes: appearance normal, both eyes and all related structures; Alignment and Position: alignment normal and position normal Neck: No lymphadenopathy, no thyromegaly Resp: bilateral air entry equal, occasional added sounds present Cardio: Regular rate, regular rhythm; Heart sounds: S1 normal heart sound present and S2 normal heart sound present GI: soft, nontender, no guarding, no hepatosplenomegaly : bladder normal to inspection, bladder normal to palpation, no renal angle tenderness Skin: no rashes or lesions noted and elasticity normal Neuro: oriented to person, oriented to place, oriented to time and moves all extremities Objective Data Labs 03/08/24 13:54 03/09/24 04:30 Labs: Laboratory Results - last 24 hr 03/08/24 03/08/24 03/08/24 00:07 04:34 10:16 WBC RBC Hgb Hct MCV MCH MCHC RDW Plt Count MPV Immature Gran % (Auto) Neut % (Auto) Lymph % (Auto) Blaine % (Auto) Eos % (Auto) Baso % (Auto) Lymph # (Auto) Blaine # (Auto) Eos # (Auto) Baso # (Auto) Abs Immat Gran (auto) Absolute Neuts (auto) Absolute Nucleated RBC Nucleated RBC % (auto) VBG pH VBG pCO2 VBG pO2 VBG HCO3 VBG O2 Saturation VBG Base Excess Sodium 146 H 146 H Potassium 3.0 L 2.8 L* Chloride 110 H 112 H Carbon Dioxide 22 21 L Anion Gap 17 16 BUN 105 H 99 H Creatinine 3.11 H 2.76 H Estim Creat Clear Calc 29.6 33.4 Estimated GFR 21 24 POC Glucose Random Glucose 300 H 232 H Calcium 8.8 8.9 Phosphorus 3.0 Magnesium 2.8 H Total Bilirubin 2.3 H AST 37 ALT 31 Alkaline Phosphatase 86 Total Protein 8.0 Albumin 3.4 L 3.4 L Triglycerides 155 H 03/08/24 03/08/24 03/08/24 11:09 13:54 17:50 WBC 9.7 RBC 4.31 L Hgb 14.1 Hct 41.6 L MCV 96.5 MCH 32.7 MCHC 33.9 RDW 12.5 Plt Count 116 L MPV 12.2 Immature Gran % (Auto) 1.7 H Neut % (Auto) 67.7 Lymph % (Auto) 16.1 L Blaine % (Auto) 12.6 H Eos % (Auto) 1.1 Baso % (Auto) 0.8 Lymph # (Auto) 1.6 Blaine # (Auto) 1.2 Eos # (Auto) 0.1 Baso # (Auto) 0.1 Abs Immat Gran (auto) 0.16 H Absolute Neuts (auto) 6.6 Absolute Nucleated RBC 0.000 Nucleated RBC % (auto) 0.0 VBG pH VBG pCO2 VBG pO2 VBG HCO3 VBG O2 Saturation VBG Base Excess Sodium 144 Potassium 3.8 D Chloride 111 H Carbon Dioxide 22 Anion Gap 15 BUN 88 H Creatinine 2.20 H Estim Creat Clear Calc 41.8 Estimated GFR 31 POC Glucose 233 H 273 H Random Glucose 275 H Calcium 9.1 Phosphorus Magnesium Total Bilirubin AST ALT Alkaline Phosphatase Total Protein Albumin Triglycerides 03/08/24 03/08/24 03/09/24 23:23 23:59 02:27 WBC RBC Hgb Hct MCV MCH MCHC RDW Plt Count MPV Immature Gran % (Auto) Neut % (Auto) Lymph % (Auto) Blaine % (Auto) Eos % (Auto) Baso % (Auto) Lymph # (Auto) Blaine # (Auto) Eos # (Auto) Baso # (Auto) Abs Immat Gran (auto) Absolute Neuts (auto) Absolute Nucleated RBC Nucleated RBC % (auto) VBG pH VBG pCO2 VBG pO2 VBG HCO3 VBG O2 Saturation VBG Base Excess Sodium 143 Potassium 3.9 4.0 Chloride 113 H Carbon Dioxide 20 L Anion Gap 14 BUN 73 H Creatinine 1.62 H Estim Creat Clear Calc 56.8 Estimated GFR 44 POC Glucose 252 H Random Glucose 273 H Calcium 9.0 Phosphorus Magnesium Total Bilirubin 2.7 H AST 39 H ALT 33 Alkaline Phosphatase 87 Total Protein 7.6 Albumin 3.3 L Triglycerides 03/09/24 03/09/24 04:29 04:30 WBC RBC Hgb Hct MCV MCH MCHC RDW Plt Count MPV Immature Gran % (Auto) Neut % (Auto) Lymph % (Auto) Blaine % (Auto) Eos % (Auto) Baso % (Auto) Lymph # (Auto) Blaine # (Auto) Eos # (Auto) Baso # (Auto) Abs Immat Gran (auto) Absolute Neuts (auto) Absolute Nucleated RBC Nucleated RBC % (auto) VBG pH 7.46 H VBG pCO2 27 VBG pO2 52 VBG HCO3 19 L VBG O2 Saturation 83.0 VBG Base Excess -2.6 Sodium 144 Potassium 3.9 Chloride 113 H Carbon Dioxide 20 L Anion Gap 15 BUN 65 H Creatinine 1.39 Estim Creat Clear Calc 66.2 Estimated GFR 53 POC Glucose Random Glucose 244 H Calcium 9.1 Phosphorus 1.5 L Magnesium 2.6 Total Bilirubin AST ALT Alkaline Phosphatase Total Protein Albumin Triglycerides Microbiology Microbiology Results: Microbiology 03/03/24 19:20 Blood - Venous Blood Culture - Final No growth after 5 days. 03/03/24 17:55 Blood - Venous Blood Culture - Final No growth after 5 days. 03/06/24 11:21 Blood - Venous Blood Culture - Preliminary No growth after 48 hours. 03/06/24 11:21 Blood - Venous Blood Culture - Preliminary No growth after 48 hours. 03/03/24 Unknown Urine Catheterized - Straight Catheter Urine Culture - Final No growth. 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 His last alcohol intake was more than 4 days prior to the ED visit, in the ED patient was extremely drowsy and confused so he received multiple pushes of Ativan and phenobarb for alcohol withdrawal syndrome, MICU was consulted and was intubated and placed on ventilator support as patient had aspiration pneumonia and unable to protect his airway. His CTA abdomen is concerning for partial small bowel obstruction, surgery recommending conservative management given his oral clinical status. Patient had significant hypokalemia needing over 160 mEq of potassium chloride everyday despite which he would remained hypokalemic. Central line was placed he was started on TPN along with 40 mEq t.i.d. off schedule KCl as hypokalemia might be the cause of his small-bowel obstruction. He also had acute kidney injury secondary to volume loss from large output from the SBO, which has improved with aggressive fluid replacement. He is extubated on 03/08/2024, mental status has improved but is still significantly confused. Neuro: Acute encephalopathy possibly due to hepatic encephalopathy and alcohol withdrawal which is slowly improving, he is still confused Last ammonia 66 MRI of the brain, CT head and CTA of head and neck both did not find any acute abnormality Close neurological status monitoring in the ICU every hour Cardiac: Cardiogenic shock is completely resolved, was secondary to positive pressure ventilation Currently off of Levophed support Respiratory: Acute hypoxemic respiratory failure due to left-sided aspiration pneumonia Extubated yesterday, tolerating liberation from ventilator very well GI: Partial small-bowel obstruction: General surgery upon for conservative management Since the output is about 3 L from the NG tube; surgeon reconsulted on Sunday who opined that he is a poor candidate for surgery and continue with conservative management. With keep the patient on scheduled Reglan q.6 hours, continue pantoprazole daily Continue NG tube for intermittent suction TPN for nutrition Alcoholic hepatitis: AST ALT reversed to normal, bilirubin improving Maddrey's discriminant function score: 12.2, no indication for prenisolone Renal: Acute kidney injury: Possibly secondary to small-bowel obstruction and large volume output through NG tube Renal function slowly improving with aggressive volume replacement, creatinine down to 1.4 Continue D5 water at 100 cc/hour and TPN Baseline creatinine normal We will closely monitor I's and O's Avoid nephrotoxic medications Hypernatremia: Improving sodium down to 144 this morning Hypokalemia: will aggressively replace given his small bowel obstruction On scheduled 40 mEq t.i.d. receiving additional KCl as needed Target potassium>4 Heme: Chronic anemia, closely monitor H&H, transfuse for hemoglobin less than 7 grams/deciliter Endocrine: Blood sugars under control Sliding scale insulin as needed Infectious disease: Chest x-ray showing lower lobe pneumonia, which is improving on the repeat x-ray WBC count returned to normal Pancultures negative Continue Zosyn for antibiotics for now until we can switch to p.o. Augmentin at some point when SBO improves Musculoskeletal: Decubitus ulcer prevention protocol Lines: Peripheral Prophylaxis: Heparin, pantoprazole Quality Stroke Does the patient have a stroke diagnosis?: No VTE Prior VTE?: No VTE Risk Level:: Medical - moderate - high VTE Device Contraindication: Treatment Not Indicated VTE Drug Contraindication: N/A - Med Ordered
[2024-03-09 12:08] LABS: Glucose, Whole Blood 277 mg/dL (60-115)
--- NOTE | 2024-03-09 13:11 | PM.EVENT ---
Event Note Date of Service: 03/10/24 Event Note: The patient was seen, examined, and discussed with the ICU physician. He was admitted on 03/03 with altered mental status (AMS), alcohol withdrawal, and small bowel obstruction (SBO). He had received multiple sedatives and became unresponsive, with impending acute respiratory failure in the setting of hepatic encephalopathy. He was admitted to the ICU, intubated, and mechanically ventilated, required vasopressors, and was extubated on 03/08. His SBO is believed to be caused by hypokalemia, which has been challenging to manage. He has been treated for aspiration pneumonia with Zosyn and is currently receiving total parenteral nutrition (TPN). The patient is awake and alert but continues to have some residual confusion. His last ammonia level on 03/06 was 66, and a repeat ammonia level has been ordered, with plans to continue lactulose. He will remain on TPN until the SBO improves, and surgery is following his case. Potassium replacement is being provided through IV and TPN, and once he is able to take oral intake, the use of aldactone will be considered. He will complete 7 to 10 days of antibiotics for aspiration pneumonia. I have stopped versed drip, propafol, vasopressor all of which he cannot get on med floor. Otherwise A/P today per ICU Time Spent With Patient Time: Total time managing care of this patient today ____ minutes.
--- NOTE | 2024-03-09 14:42 | PC.NURSE ---
Pt. Transferred to IMC with CVC per MD verbal order.
[2024-03-09 15:18] LABS: Anion Gap 17 (12-20); Blood Urea Nitrogen 51 mg/dL (9-16); Calcium 9.1 mg/dL (8.4-10.2); Carbon Dioxide 18 mmol/L (22-29); Chloride 112 mmol/L (96-108); Creatinine Clr Calc Pharmacy 80.8; Estimated Glomerular Filt Rate > 60; Glucose Random 286 mg/dL (60-115); Potassium 4.5 mmol/L (3.3-5.1); Sodium 142 mmol/L (135-145)
[2024-03-09] MEDS: Lactated Ringers 1,000 ML 100 ML IVCONT (17:26)
[2024-03-09 17:31] LABS: Glucose, Whole Blood 291 mg/dL (60-115)
[2024-03-09 20:28] LABS: Anion Gap 17 (12-20); Carbon Dioxide 18 mmol/L (22-29); Chloride 114 mmol/L (96-108); Potassium 4.3 mmol/L (3.3-5.1); Sodium 145 mmol/L (135-145)
[2024-03-09] MEDS: Parenteral Nutrition 1,920 ML 80 ML IV (22:34)
[2024-03-10] VITALS: BP 135/74; PULSE 94; RESP 20; TEMP 36.7; O2SAT 96
[2024-03-10 00:09] LABS: Glucose, Whole Blood 250 mg/dL (60-115)
[2024-03-10] MEDS: Insulin Lispro 100 UNIT/ML 3 ML VIAL SUBCUT ×4 (00:38→16:35)
[2024-03-10] MEDS: 0.9 % Sodium Chloride Flush 3 ML SYRINGE IVFLUSH ×4 (00:39→23:55)
[2024-03-10] MEDS: Heparin Sodium,Porcine 5,000 UNIT/ML VIAL 5000 UNIT SUBCUT ×3 (00:41→16:35)
[2024-03-10] MEDS: Piperacillin Sodium/Tazobactam 2.25 GM in 0.9 % Sodium Chloride 50 ML IV ×4 (01:55→21:11)
[2024-03-10 03:42] VITALS: BP 161/77; PULSE 88; RESP 20; TEMP 36.5; O2SAT 95
[2024-03-10] MEDS: Metoclopramide HCl 10 MG/2 ML VIAL IVPUSH ×4 (03:53→21:12)
[2024-03-10] MEDS: Lactated Ringers 1,000 ML 100 ML IVCONT ×3 (03:54→22:41)
[2024-03-10 06:04] LABS: Glucose, Whole Blood 258 mg/dL (60-115)
[2024-03-10 06:33] LABS: Anion Gap 14 (12-20); Blood Urea Nitrogen 40 mg/dL (9-16); Calcium 9.1 mg/dL (8.4-10.2); Carbon Dioxide 18 mmol/L (22-29); Chloride 115 mmol/L (96-108); Creatinine Clr Calc Pharmacy 78.7; Estimated Glomerular Filt Rate > 60; Glucose Random 286 mg/dL (60-115); Magnesium 2.1 mg/dL (1.6-2.6); Phosphorus 2.8 mg/dL (2.7-4.5); Potassium 3.9 mmol/L (3.3-5.1); Sodium 143 mmol/L (135-145)
[2024-03-10 07:24] VITALS: BP 154/81; PULSE 95; RESP 18; TEMP 36.6; O2SAT 95
[2024-03-10 07:57] LABS: Estimated Average Glucose 126 mg/dL; Total Hemoglobin (HGBA1C) 3126.0354 umol/L
--- NOTE | 2024-03-10 10:07 | MHC.CLN ---
F/U PT REQUIRES TPN FOR NUTRITION SUPPORT R/T PROLONGED NPO STATUS AND PSBO PT EXTUBATED AND TRANSFERRED TO MEDICAL FLOOR REVIEWED LABS DISCUSSED WITH PHARMACY PT RECEIVING TPN AT MAX GOAL RATE 80ML/HR WITH 50G LIPIDS PROVIDES 1863KCALS (23KCALS/KG BASED ON CMW), 96G PROTEIN (1.17G/KG), 288G DEXTROSE REPLETE LYTES NEEDED
[2024-03-10 11:34] LABS: Glucose, Whole Blood 274 mg/dL (60-115)
[2024-03-10 11:39] VITALS: BP 158/76; PULSE 91; RESP 20; TEMP 36.9; O2SAT 95
--- NOTE | 2024-03-10 13:18 | HO.PM.IMPN ---
Subjective Subjective Date of Service: 03/10/24 Interval History: f/u on complicated admission with alcoholic hepatic enceaphalopathy, acute respiratory failure s/p intubation, SBO/Ileus Hypokalemia Overall continue to improve, he's more lucid, oriented to self, place and time. Hypokalemia is better, still with diarrhea rectal tube came out Physical Exam Vital Signs: Vital Signs: Last Vital Signs Temp 98.4 F 03/10/24 11:39 Pulse 91 03/10/24 11:39 Resp 20 03/10/24 11:39 BP 158/76 H 03/10/24 11:39 Pulse Ox 95 03/10/24 11:39 O2 Del Method Room Air 03/10/24 11:39 O2 Flow Rate 2 03/09/24 07:00 FiO2 30 03/08/24 12:00 BMI result Body Mass Index 31.4 Const: Other: General: AO X 3, no acute distress Resp: CTA bilateral CVS: S1,S2,RRR GI: faint BS, NT, no distention Skin: No rash Neuro: motor grossly intact Psych: appropriate affect Objective Data Active Medications Acetaminophen (Acetaminophen 325 Mg Tablet) 650 mg PO Q6H PRN PRN Reason: Pain, Mild (Pain Scale 1-3), fever or headache Last Admin: 03/04/24 20:34 Dose: 650 mg Documented By: JOSE Heparin Sodium (Porcine) (Heparin Sodium,Porcine 5,000 Unit/Ml Vial) 5,000 unit SUBCUT Q8H [facility] Last Admin: 03/10/24 08:19 Dose: 5,000 unit Documented By: VERNA Piperacillin Sod/Tazobactam (Sod 2.25 gm/ Sodium Chloride) 50 mls @ 100 mls/hr IV Q6H [facility] Last Infusion: 03/10/24 10:09 Dose: Infused Documented By: VERNA Nutrition (Parenteral) (Parenteral Nutrition) 1,920 mls @ 80 mls/hr IV .Q24H [facility]; Protocol Stop: 03/10/24 20:59 Last Admin: 03/09/24 22:34 Dose: 80 mls/hr Documented By: RANDAL Lactated Ringer's (Lr) 1,000 mls @ 100 mls/hr IVCONT .Q10H [facility] Last Admin: 03/10/24 11:58 Dose: 100 mls/hr Documented By: VERNA Nutrition (Parenteral) (Parenteral Nutrition) 1,920 mls @ 80 mls/hr IV .Q24H [facility]; Protocol Stop: 03/11/24 20:59 Insulin Human Lispro (Insulin Lispro 100 Unit/Ml 3 Ml Vial) 0 unit SUBCUT Q6H [facility]; Protocol Last Admin: 03/10/24 11:58 Dose: 6 unit Documented By: VERNA Metoclopramide HCl (Metoclopramide Hcl 10 Mg/2 Ml Vial) 10 mg IVPUSH Q6H [facility] Last Admin: 03/10/24 08:19 Dose: 10 mg Documented By: VERNA Ondansetron HCl (Ondansetron Hcl 4 Mg/2 Ml Vial) 4 mg IVPUSH Q8H PRN PRN Reason: Nausea And Vomiting Pharmacy Consult (Consult Rx Parenteral Nutrition Ordering) 1 each MISCELLANE DAILY PRN PRN Reason: Consult order Sodium Chloride (0.9 % Sodium Chloride Flush 3 Ml Syringe) 3 ml IVFLUSH QSHIFT [facility] Last Admin: 03/10/24 08:19 Dose: 3 ml Documented By: VERNA Labs 03/08/24 13:54 03/10/24 05:50 Labs: Laboratory Results - last 24 hr 03/09/24 03/09/24 03/09/24 14:52 17:26 20:14 Hold Purple Top Anion Gap 17 17 Estim Creat Clear Calc 80.8 Estimated GFR > 60 POC Glucose 291 H Random Glucose 286 H Estimat Average Glucose Hemoglobin A1c % Calcium 9.1 Phosphorus Magnesium 03/09/24 03/10/24 03/10/24 23:59 05:50 05:53 Hold Purple Top SEE NOTE Anion Gap 14 Estim Creat Clear Calc 78.7 Estimated GFR > 60 POC Glucose 250 H 258 H Random Glucose 286 H Estimat Average Glucose 126 Hemoglobin A1c % 6.0 Calcium 9.1 Phosphorus 2.8 Magnesium 2.1 03/10/24 11:23 Hold Purple Top Anion Gap Estim Creat Clear Calc Estimated GFR POC Glucose 274 H Random Glucose Estimat Average Glucose Hemoglobin A1c % Calcium Phosphorus Magnesium Assessment and Plan (1) Aspiration pneumonia: Status: Acute (2) Acute hypoxemic respiratory failure: Status: Acute (3) Partial small bowel obstruction: Status: Acute Plan 58/M yo male with alcohol dependency presented to the hospital on 03/03 after been found on the floor, upon presentation was noted to be in hepatic encephalopathy and alcoholl withdrawal with agitation and was given phenobarb and ativan and the next morning was incresing somnolent with rising ammonia level, impending respiratory arrest and was transfered to the ICU where he required mechanical ventilation, hospital course is furhter complicated SBO/ileus related to hypokalemia, aspiration pneumonia. He was extubated on 03/08 and transferred to med floor on 03/09 and is making progressed Alcohol withdrawal--resolved -addiction med consult before dc Hepatic encephalopathy--resolved -continue lactulose Aspiration pneumonia--Zosyn SBO/Ileus-believed to be related hypokalemia -continue TPN -Serial xray -surgery following, no indication for surgery Hypokalemia--related to diarrhea, now corrected -IV replacement as needed Hyperchloremic metabolic acidosis--d/t normal saline, changed to LR -normal AG, continue monitoring Hyperglycemia--from TPN, A1C is 6 DVT prophylaxis-- heparin Quality Stroke Does the patient have a stroke diagnosis?: No VTE Prior VTE?: No VTE Risk Level:: Medical - moderate - high VTE Device Contraindication: Treatment Not Indicated VTE Drug Contraindication: N/A - Med Ordered
[2024-03-10 16:00] VITALS: BP 146/91; PULSE 92; RESP 20; TEMP 36.7; O2SAT 95
[2024-03-10 16:25] LABS: Glucose, Whole Blood 238 mg/dL (60-115)
[2024-03-10 18:20] LABS: Glucose, Whole Blood 278 mg/dL (60-115)
[2024-03-10 20:00] VITALS: BP 167/84; PULSE 95; RESP 17; TEMP 36.7; O2SAT 95
[2024-03-10] MEDS: Parenteral Nutrition 1,920 ML 80 ML IV (21:12)
[2024-03-10 23:46] LABS: Anion Gap 13 (12-20); Carbon Dioxide 17 mmol/L (22-29); Chloride 118 mmol/L (96-108); Sodium 144 mmol/L (135-145)
[2024-03-11] VITALS (8 sets, daily range): BP systolic 118–163; BP diastolic 72–86; PULSE 82–97; RESP 16–20; TEMP 36.6–37.4; O2SAT 95–98
[2024-03-11 00:38] LABS: Glucose, Whole Blood 276 mg/dL (60-115)
[2024-03-11] MEDS: Insulin Lispro 100 UNIT/ML 3 ML VIAL SUBCUT ×3 (00:42→13:02)
[2024-03-11] MEDS: Heparin Sodium,Porcine 5,000 UNIT/ML VIAL 5000 UNIT SUBCUT ×3 (00:45→16:12)
[2024-03-11] MEDS: Piperacillin Sodium/Tazobactam 2.25 GM in 0.9 % Sodium Chloride 50 ML IV ×2 (02:58→08:07)
[2024-03-11] MEDS: Metoclopramide HCl 10 MG/2 ML VIAL IVPUSH ×3 (02:59→22:00)
[2024-03-11 06:18] LABS: Glucose, Whole Blood 236 mg/dL (60-115)
[2024-03-11 07:35] LABS: Anion Gap 13 (12-20); Blood Urea Nitrogen 29 mg/dL (9-16); Calcium 9.2 mg/dL (8.4-10.2); Carbon Dioxide 17 mmol/L (22-29); Chloride 119 mmol/L (96-108); Creatinine Clr Calc Pharmacy 98.3; Estimated Glomerular Filt Rate > 60; Glucose Random 261 mg/dL (60-115); Magnesium 1.8 mg/dL (1.6-2.6); Phosphorus 3.1 mg/dL (2.7-4.5); Potassium 3.9 mmol/L (3.3-5.1); Sodium 145 mmol/L (135-145); Triglycerides 141 mg/dL (<150)
[2024-03-11] MEDS: 0.9 % Sodium Chloride Flush 3 ML SYRINGE IVFLUSH ×2 (08:06→22:04)
--- NOTE | 2024-03-11 09:28 | P.PNGS_ITS ---
Subjective Subjective Date of Service: 03/11/24 Interval history: Feels improved. Denies abd pain, nausea, bloating. Reports his abdomen is at his baseline size. Has been passing flatus and having numerous loose stools. Feels hungry and wants to eat. Was OOB yesterday and ambulated. Physical Exam 2 Vital Signs: Vital Signs: Last Vital Signs Temp 98.7 F 03/11/24 08:00 Pulse 82 03/11/24 08:00 Resp 18 03/11/24 08:00 BP 148/78 H 03/11/24 08:00 Pulse Ox 97 03/11/24 08:00 O2 Del Method Room Air 03/11/24 08:00 O2 Flow Rate 2 03/09/24 07:00 FiO2 30 03/08/24 12:00 BMI result Body Mass Index 31.4 Const: General: comfortable, no acute distress and alert O rientation/consciousness: patient oriented x3 Resp: Effort & Inspection: normal respiratory effort GI: Other: protuberant abdomen, at baseline per patient Inspection: No distended and Yes visible herniation Palpation (GI): Soft to palpation, nontender, no guarding and Hernia present (umbilical hernia soft and reducible ) Percussion: Yes normal to percussion Skin: General skin exam: no rashes or lesions noted Neuro: General: patient oriented x3 and moves all extremities Objective Data Active Medications Acetaminophen (Acetaminophen 325 Mg Tablet) 650 mg PO Q6H PRN PRN Reason: Pain, Mild (Pain Scale 1-3), fever or headache Last Admin: 03/04/24 20:34 Dose: 650 mg Documented By: JOSE Heparin Sodium (Porcine) (Heparin Sodium,Porcine 5,000 Unit/Ml Vial) 5,000 unit SUBCUT Q8H [facility] Last Admin: 03/11/24 08:05 Dose: 5,000 unit Documented By: MILTON Piperacillin Sod/Tazobactam (Sod 2.25 gm/ Sodium Chloride) 50 mls @ 100 mls/hr IV Q6H [facility] Last Admin: 03/11/24 08:07 Dose: 100 mls/hr Documented By: MILTON Lactated Ringer's (Lr) 1,000 mls @ 100 mls/hr IVCONT .Q10H [facility] Last Admin: 03/10/24 22:41 Dose: 100 mls/hr Documented By: BRAVO Nutrition (Parenteral) (Parenteral Nutrition) 1,920 mls @ 80 mls/hr IV .Q24H [facility]; Protocol Stop: 03/11/24 20:59 Last Admin: 03/10/24 21:12 Dose: 80 mls/hr Documented By: BRAVO Insulin Human Lispro (Insulin Lispro 100 Unit/Ml 3 Ml Vial) 0 unit SUBCUT Q6H [facility]; Protocol Last Admin: 03/11/24 06:22 Dose: 4 unit Documented By: BRAVO Metoclopramide HCl (Metoclopramide Hcl 10 Mg/2 Ml Vial) 10 mg IVPUSH Q6H [facility] Last Admin: 03/11/24 08:06 Dose: 10 mg Documented By: MILTON Ondansetron HCl (Ondansetron Hcl 4 Mg/2 Ml Vial) 4 mg IVPUSH Q8H PRN PRN Reason: Nausea And Vomiting Pharmacy Consult (Consult Rx Parenteral Nutrition Ordering) 1 each MISCELLANE DAILY PRN PRN Reason: Consult order Sodium Chloride (0.9 % Sodium Chloride Flush 3 Ml Syringe) 3 ml IVFLUSH QSHIFT [facility] Last Admin: 03/11/24 08:06 Dose: 3 ml Documented By: MILTON Labs 03/08/24 13:54 03/11/24 06:10 Labs: Laboratory Results - last 24 hr 03/10/24 03/10/24 03/10/24 11:23 16:21 18:16 Hold Purple Top Anion Gap Estim Creat Clear Calc Estimated GFR POC Glucose 274 H 238 H 278 H Random Glucose Calcium Phosphorus Magnesium Triglycerides 03/10/24 03/11/24 03/11/24 23:18 00:31 06:10 Hold Purple Top SEE NOTE Anion Gap 13 13 Estim Creat Clear Calc 98.3 Estimated GFR > 60 POC Glucose 276 H Random Glucose 261 H Calcium 9.2 Phosphorus 3.1 Magnesium 1.8 Triglycerides 141 03/11/24 06:12 Hold Purple Top Anion Gap Estim Creat Clear Calc Estimated GFR POC Glucose 236 H Random Glucose Calcium Phosphorus Magnesium Triglycerides Procedures Date of Service Date of Service: 03/11/24 Progress Note: A&P Assessment and plan (1) Partial small bowel obstruction: Status: Acute Plan PSBO vs ileus due to acute metabolic abnormalities, now resolved without abd pain, nausea and with multiple loose BMs. Abd benign- soft and nontender, no tympany. Can advance to clear liquids and further as tolerated. If tolerating oral intake, can dc TPN. Encouraged OOB/ambulation. Time Spent With Patient Time: Total time managing care of this patient today ____ minutes. Quality Stroke Does the patient have a stroke diagnosis?: No VTE Prior VTE?: No VTE Risk Level:: Medical - moderate - high VTE Device Contraindication: Treatment Not Indicated VTE Drug Contraindication: N/A - Med Ordered
--- NOTE | 2024-03-11 09:50 | MHC.CLN ---
F/U PT REQUIRES TPN FOR NUTRITION SUPPORT R/T PROLONGED NPO STATUS AND PSYISEL PENA NOTED TO ADVANCE DIET TO CLEARS TODAY REVIEWED LABS DISCUSSED WITH PHARMACY PT RECEIVING TPN AT MAX GOAL RATE 80ML/HR WITH 50G LIPIDS PROVIDES 1863KCALS (23KCALS/KG BASED ON CMW), 96G PROTEIN (1.17G/KG), 288G DEXTROSE REPLETE LYTES NEEDED FOLLOWING FOR DIET TOLERANCE/ADVANCEMENT
[2024-03-11 10:15] LABS: Mean Corpuscular Volume 98.6 fL (80.0-98.0); Red Cell Distribution Width 12.2 % (11.0-16.0)
[2024-03-11 10:16] LABS: Hematocrit 42.9 % (42.0-52.0); Hemoglobin 14.2 g/dl (14.0-18.0); Mean Corpuscular HGB Conc 33.1 g/dl (31.0-36.0); Mean Corpuscular Hemoglobin 32.6 pg (27.0-33.0); NRBC Pct Auto 0.2 /100WBC (0.0-0.2); PLT CLUMP 1; Red Blood Count 4.35 X10*6/uL (4.60-5.80)
[2024-03-11] MEDS: Lactated Ringers 1,000 ML 100 ML IVCONT ×3 (10:16→22:00)
[2024-03-11 10:18] LABS: PLT ABN DIST 1; WBC ABN SCTR FOR CBC 1
[2024-03-11 10:45] LABS: Atypical Lymphs Percent Manual 2 % (0-6); Band Neutrophils Percent 7 % (3-5); Lymphocytes Percent Manual 17 % (20-40); Monocytes Percent Manual 5 % (2-11); Neutrophils Percent Manual 69 % (45-73)
[2024-03-11 10:48] LABS: Platelet Estimate NORMAL (NORMAL); Platelet Morphology Comment NORMAL; RBC Morphology NORMAL
[2024-03-11 11:11] LABS: Atypical Lymph Absolute Manual 0.2 x10*3/uL; Lymphocytes Absolute Manual 2.1 X10*3/uL (1.2-4.9); Monocytes Absolute Manual 0.6 X10*3/uL (0.1-1.2); Neutrophils Absolute Manual 9.4 X10*3/uL (2.0-8.3); Platelet Count 108 X10*3/uL (160-400); White Blood Count 12.4 X10*3/uL (4.8-10.8)
--- NOTE | 2024-03-11 11:24 | HO.PM.IMPN ---
Subjective Subjective Date of Service: 03/11/24 Interval History: f/u on complicated admission with alcoholic hepatic enceaphalopathy, acute respiratory failure s/p intubation, SBO/Ileus Hypokalemia. Continue to make progress, mental status back to normal, no abd pain, loose stool better Physical Exam Vital Signs: Vital Signs: Last Vital Signs Temp 98.7 F 03/11/24 08:00 Pulse 82 03/11/24 08:00 Resp 18 03/11/24 08:00 BP 148/78 H 03/11/24 08:00 Pulse Ox 97 03/11/24 08:00 O2 Del Method Room Air 03/11/24 08:00 O2 Flow Rate 2 03/09/24 07:00 FiO2 30 03/08/24 12:00 BMI result Body Mass Index 31.4 General: AO X 3, no acute distress Resp: CTA bilateral CVS: S1,S2,RRR GI: mild distention, some bowel sounds, no tendterness Skin: No rash Neuro: motor grossly intact Psych: appropriate affect Objective Data Active Medications Acetaminophen (Acetaminophen 325 Mg Tablet) 650 mg PO Q6H PRN PRN Reason: Pain, Mild (Pain Scale 1-3), fever or headache Last Admin: 03/04/24 20:34 Dose: 650 mg Documented By: JOSE Heparin Sodium (Porcine) (Heparin Sodium,Porcine 5,000 Unit/Ml Vial) 5,000 unit SUBCUT Q8H [facility] Last Admin: 03/11/24 08:05 Dose: 5,000 unit Documented By: MILTON Piperacillin Sod/Tazobactam (Sod 2.25 gm/ Sodium Chloride) 50 mls @ 100 mls/hr IV Q6H [facility] Last Infusion: 03/11/24 08:40 Dose: Infused Documented By: MILTON Lactated Ringer's (Lr) 1,000 mls @ 100 mls/hr IVCONT .Q10H [facility] Last Admin: 03/11/24 10:16 Dose: 100 mls/hr Documented By: MILTON Nutrition (Parenteral) (Parenteral Nutrition) 1,920 mls @ 80 mls/hr IV .Q24H [facility]; Protocol Stop: 03/11/24 20:59 Last Admin: 03/10/24 21:12 Dose: 80 mls/hr Documented By: BRAVO Insulin Human Lispro (Insulin Lispro 100 Unit/Ml 3 Ml Vial) 0 unit SUBCUT Q6H [facility]; Protocol Last Admin: 03/11/24 06:22 Dose: 4 unit Documented By: BRAVO Metoclopramide HCl (Metoclopramide Hcl 10 Mg/2 Ml Vial) 10 mg IVPUSH Q6H [facility] Last Admin: 03/11/24 08:06 Dose: 10 mg Documented By: MILTON Ondansetron HCl (Ondansetron Hcl 4 Mg/2 Ml Vial) 4 mg IVPUSH Q8H PRN PRN Reason: Nausea And Vomiting Pharmacy Consult (Consult Rx Parenteral Nutrition Ordering) 1 each MISCELLANE DAILY PRN PRN Reason: Consult order Sodium Chloride (0.9 % Sodium Chloride Flush 3 Ml Syringe) 3 ml IVFLUSH QSHIFT [facility] Last Admin: 03/11/24 08:06 Dose: 3 ml Documented By: MILTON Labs 03/10/24 23:18 03/11/24 06:10 Labs: Laboratory Results - last 24 hr 03/10/24 03/10/24 03/10/24 11:23 16:21 18:16 MCV MCH MCHC RDW Plt Count MPV Immature Gran % (Auto) Neut % (Auto) Lymph % (Auto) Dickson % (Auto) Eos % (Auto) Baso % (Auto) Lymph # (Auto) Dickson # (Auto) Eos # (Auto) Baso # (Auto) Abs Immat Gran (auto) Absolute Neuts (auto) Absolute Nucleated RBC Nucleated RBC % (auto) Neutrophils % (Manual) Band Neutrophils % Lymphocytes % (Manual) Atypical Lymphs % (Man) Monocytes % (Manual) Abs Neuts (Manual) Lymphocytes # (Manual) Atyp Lymphs # (Manual) Monocytes # (Manual) Platelet Estimate Plt Morphology Comment RBC Morphology Hold Purple Top Anion Gap Estim Creat Clear Calc Estimated GFR POC Glucose 274 H 238 H 278 H Random Glucose Calcium Phosphorus Magnesium Triglycerides 03/10/24 03/11/24 03/11/24 23:18 00:31 06:10 MCV 98.6 H MCH 32.6 MCHC 33.1 RDW 12.2 Plt Count 108 L MPV Not Reportable Immature Gran % (Auto) Cancelled Neut % (Auto) Cancelled Lymph % (Auto) Cancelled Dickson % (Auto) Cancelled Eos % (Auto) Cancelled Baso % (Auto) Cancelled Lymph # (Auto) Cancelled Dickson # (Auto) Cancelled Eos # (Auto) Cancelled Baso # (Auto) Cancelled Abs Immat Gran (auto) Cancelled Absolute Neuts (auto) Cancelled Absolute Nucleated RBC 0.020 H Nucleated RBC % (auto) 0.2 Neutrophils % (Manual) 69 Band Neutrophils % 7 H Lymphocytes % (Manual) 17 L Atypical Lymphs % (Man) 2 Monocytes % (Manual) 5 Abs Neuts (Manual) 9.4 H Lymphocytes # (Manual) 2.1 Atyp Lymphs # (Manual) 0.2 Monocytes # (Manual) 0.6 Platelet Estimate NORMAL Plt Morphology Comment NORMAL RBC Morphology NORMAL Hold Purple Top SEE NOTE Anion Gap 13 13 Estim Creat Clear Calc 98.3 Estimated GFR > 60 POC Glucose 276 H Random Glucose 261 H Calcium 9.2 Phosphorus 3.1 Magnesium 1.8 Triglycerides 141 03/11/24 06:12 MCV MCH MCHC RDW Plt Count MPV Immature Gran % (Auto) Neut % (Auto) Lymph % (Auto) Dickson % (Auto) Eos % (Auto) Baso % (Auto) Lymph # (Auto) Dickson # (Auto) Eos # (Auto) Baso # (Auto) Abs Immat Gran (auto) Absolute Neuts (auto) Absolute Nucleated RBC Nucleated RBC % (auto) Neutrophils % (Manual) Band Neutrophils % Lymphocytes % (Manual) Atypical Lymphs % (Man) Monocytes % (Manual) Abs Neuts (Manual) Lymphocytes # (Manual) Atyp Lymphs # (Manual) Monocytes # (Manual) Platelet Estimate Plt Morphology Comment RBC Morphology Hold Purple Top Anion Gap Estim Creat Clear Calc Estimated GFR POC Glucose 236 H Random Glucose Calcium Phosphorus Magnesium Triglycerides Assessment and Plan (1) Aspiration pneumonia: Status: Acute (2) Acute hypoxemic respiratory failure: Status: Acute (3) Partial small bowel obstruction: Status: Acute Plan 58/M yo male with alcohol dependency presented to the hospital on 03/03 after been found on the floor, upon presentation was noted to be in hepatic encephalopathy and alcoholl withdrawal with agitation and was given phenobarb and ativan and the next morning was incresing somnolent with rising ammonia level, impending respiratory arrest and was transfered to the ICU where he required mechanical ventilation, hospital course is furhter complicated SBO/ileus related to hypokalemia, aspiration pneumonia. He was extubated on 03/08 and transferred to med floor on 03/09 and is making progressed Alcohol withdrawal--resolved -addiction med consult before dc Hepatic encephalopathy--resolved -continue lactulose Aspiration pneumonia--Adequately treated with Abx since 03/03. Stop Zosyn pSBO/Ileus-believed to be related hypokalemia, clinically resolved - start liquid diet and advance as tolerated -Stop TPN -surgery following, no indication for surgery HypOkalemia--related to diarrhea, now corrected -monitor Hyperchloremic metabolic acidosis--d/t TPN, stop -normal AG, continue monitoring Hyperglycemia--from TPN, A1C is 6 DVT prophylaxis-- heparin PT eval, out of bed Quality Stroke Does the patient have a stroke diagnosis?: No VTE Prior VTE?: No VTE Risk Level:: Medical - moderate - high VTE Device Contraindication: Treatment Not Indicated VTE Drug Contraindication: N/A - Med Ordered
--- NOTE | 2024-03-11 12:00 | HO.SKINPHOTO ---
Location: Left buttock
[2024-03-11 12:03] LABS: Glucose, Whole Blood 235 mg/dL (60-115)
--- NOTE | 2024-03-11 15:42 | MHC.CM.PN ---
Per MD rounds plan is to stop TPN and start Liquid diet. A PT eval is planned. DP to be determined with assist from a PT eval. Patient may need assist with transport.
[2024-03-11 18:02] LABS: Glucose, Whole Blood 139 mg/dL (60-115)
[2024-03-11 20:01] LABS: Anion Gap 13 (12-20); Carbon Dioxide 16 mmol/L (22-29); Chloride 114 mmol/L (96-108); Potassium 3.7 mmol/L (3.3-5.1); Sodium 139 mmol/L (135-145)
[2024-03-11 20:21] LABS: CDiff Gene PCR NEGATIVE (Negative)
--- NOTE | 2024-03-11 20:34 | HO.WOUND ---
wound consult: Initial 58 year old male admitted to [facility] [place] [facility] on 03/03/04 see H&P for detailed history. Wound consult placed for Left Buttock wound. Arrival to bedside patient was agreeable to assessment and photo documentation. Bilateral Buttock, Coccyx, perineal and scrotum were assessed for red erythema and irritation - Significant MASD noted. Scattered areas of partial thickness tissue loss throughout in various depths. Of note the patient is currently being tested for C.Diff and is experiencing liquid stool with incontinence. Patient educated on the importance of cleansing once soiled. Patient was stood while at bedside and able to pivot to commode for stooling - liquid yellow stool noted - direct care team aware. Triad applied. Patient educated to perform prompt cleansing and reapplication of barrier cream (Triad) to protect tissue from irritating / acidic liquid stool. Topical recommendations: 1. Buttock, Coccyx, Perineal and Scrotum - Gently cleanse with lorena spray, lightly pat dry. Once dried gently apply thin layer of Triad cream to cover wound beds and exposed tissue. Pat and dab to remove do not scrub and rub. Apply twice daily and after each episode of incontinence.
[2024-03-11 21:48] LABS: Glucose, Whole Blood 148 mg/dL (60-115)
[2024-03-12 00:16] LABS: Glucose, Whole Blood 128 mg/dL (60-115)
[2024-03-12] MEDS: Heparin Sodium,Porcine 5,000 UNIT/ML VIAL 5000 UNIT SUBCUT ×3 (00:23→16:33)
[2024-03-12 03:22] VITALS: BP 128/70; PULSE 89; RESP 18; TEMP 36.9; O2SAT 98
[2024-03-12] MEDS: Metoclopramide HCl 10 MG/2 ML VIAL IVPUSH ×2 (03:54→21:56)
[2024-03-12 06:42] LABS: Glucose, Whole Blood 133 mg/dL (60-115)
[2024-03-12 07:49] VITALS: BP 150/81; PULSE 86; RESP 17; TEMP 36.6; O2SAT 98
[2024-03-12] MEDS: Lactated Ringers 1,000 ML 100 ML IVCONT (08:06)
[2024-03-12 09:58] LABS: Hematocrit 41.7 % (42.0-52.0); Hemoglobin 13.9 g/dl (14.0-18.0); Mean Corpuscular HGB Conc 33.3 g/dl (31.0-36.0); Mean Corpuscular Hemoglobin 32.2 pg (27.0-33.0); Mean Corpuscular Volume 96.5 fL (80.0-98.0); Mean Platelet Volume 12.6 fL (9.4-12.4); Platelet Count 129 X10*3/uL (160-400); Red Blood Count 4.32 X10*6/uL (4.60-5.80); White Blood Count 15.4 X10*3/uL (4.8-10.8)
[2024-03-12 10:20] LABS: Anion Gap 14 (12-20); Blood Urea Nitrogen 25 mg/dL (9-16); Carbon Dioxide 13 mmol/L (22-29); Chloride 113 mmol/L (96-108); Estimated Glomerular Filt Rate > 60; Glucose Random 139 mg/dL (60-115); Magnesium 1.6 mg/dL (1.6-2.6); Phosphorus 3.8 mg/dL (2.7-4.5); Potassium 3.8 mmol/L (3.3-5.1); Sodium 136 mmol/L (135-145)
--- NOTE | 2024-03-12 10:50 | MHC.CLN ---
F/U DIET ADVANCED TO 1800DM TODAY TPN STOPPED PER MD MONITOR PO INTAKE CLOSELY
--- NOTE | 2024-03-12 11:10 | PC.NURSE ---
informed md of pt's wounds and liq stool. per MD ok to place flexi-seal. ?'ed MD if central line can be d/c'ed. no new orders at this time. pt is a hard stick.
[2024-03-12 11:51] VITALS: BP 151/79; PULSE 88; RESP 17; TEMP 36.9; O2SAT 97
--- NOTE | 2024-03-12 12:07 | P.PNIM_ITS ---
Subjective Subjective Date of Service: 03/12/24 Interval History: f/u on complicated admission with alcoholic hepatic enceaphalopathy, acute respiratory failure s/p intubation, SBO/Ileus Hypokalemia. Clinically is doing well, tolerating liquid diet, unfortunate unfortunately continues to have loose stools and bicab level going down Physical Exam 2 Vital Signs: Vital Signs: Last Vital Signs Temp 98.5 F 03/12/24 11:51 Pulse 88 03/12/24 11:51 Resp 17 03/12/24 11:51 BP 151/79 H 03/12/24 11:51 Pulse Ox 97 03/12/24 11:51 O2 Del Method Room Air 03/12/24 11:51 O2 Flow Rate 2 03/09/24 07:00 FiO2 30 03/08/24 12:00 BMI result Body Mass Index 31.4 General: AO X 3, no acute distress Resp: CTA bilateral CVS: S1,S2,RRR GI: mild distention, some bowel sounds, no tendterness Skin: No rash Neuro: motor grossly intact Psych: appropriate affect Objective Data Active Medications Acetaminophen (Acetaminophen 325 Mg Tablet) 650 mg PO Q6H PRN PRN Reason: Pain, Mild (Pain Scale 1-3), fever or headache Last Admin: 03/04/24 20:34 Dose: 650 mg Documented By: JOSE Heparin Sodium (Porcine) (Heparin Sodium,Porcine 5,000 Unit/Ml Vial) 5,000 unit SUBCUT Q8H [facility] Last Admin: 03/12/24 08:06 Dose: 5,000 unit Documented By: ANGELICA Lactated Ringer's (Lr) 1,000 mls @ 100 mls/hr IVCONT .Q10H [facility] Last Admin: 03/12/24 08:06 Dose: 100 mls/hr Documented By: ANGELICA Insulin Human Lispro (Insulin Lispro 100 Unit/Ml 3 Ml Vial) 0 unit SUBCUT Q6H [facility]; Protocol Last Admin: 03/12/24 07:14 Dose: Not Given Documented By: ANGELICA Non-Admin Reason: poc oor Metoclopramide HCl (Metoclopramide Hcl 10 Mg/2 Ml Vial) 10 mg IVPUSH Q6H [facility] Last Admin: 03/12/24 07:59 Dose: Not Given Documented By: HO.SOFFAA Non-Admin Reason: Patient Refused Ondansetron HCl (Ondansetron Hcl 4 Mg/2 Ml Vial) 4 mg IVPUSH Q8H PRN PRN Reason: Nausea And Vomiting Sodium Chloride (0.9 % Sodium Chloride Flush 3 Ml Syringe) 3 ml IVFLUSH QSHIFT [facility] Last Admin: 03/12/24 07:37 Dose: Not Given Documented By: ANGELICA Non-Admin Reason: Previously Administered Labs 03/12/24 09:42 03/12/24 09:42 Labs: Laboratory Results - last 24 hr 03/11/24 03/11/24 03/11/24 17:43 17:56 19:40 MCV MCH MCHC RDW Plt Count MPV Absolute Nucleated RBC Nucleated RBC % (auto) Anion Gap 13 Estim Creat Clear Calc Estimated GFR POC Glucose 139 H Random Glucose Calcium Phosphorus Magnesium C. difficile Tox B Gene NEGATIVE 03/11/24 03/12/24 03/12/24 21:33 00:11 06:38 MCV MCH MCHC RDW Plt Count MPV Absolute Nucleated RBC Nucleated RBC % (auto) Anion Gap Estim Creat Clear Calc Estimated GFR POC Glucose 148 H 128 H 133 H Random Glucose Calcium Phosphorus Magnesium C. difficile Tox B Gene 03/12/24 09:42 MCV 96.5 MCH 32.2 MCHC 33.3 RDW 12.0 Plt Count 129 L MPV 12.6 H Absolute Nucleated RBC 0.000 Nucleated RBC % (auto) 0.0 Anion Gap 14 Estim Creat Clear Calc 104.0 Estimated GFR > 60 POC Glucose Random Glucose 139 H Calcium 9.0 Phosphorus 3.8 Magnesium 1.6 C. difficile Tox B Gene Microbiology Microbiology Results: Microbiology 03/06/24 11:21 Blood Culture - Final Blood - Venous No growth after 5 days. 03/06/24 11:21 Blood Culture - Final Blood - Venous No growth after 5 days. Assessment and Plan (1) Aspiration pneumonia: Status: Acute (2) Acute hypoxemic respiratory failure: Status: Acute (3) Partial small bowel obstruction: Status: Acute Plan 58/M yo male with alcohol dependency presented to the hospital on 03/03 after been found on the floor, upon presentation was noted to be in hepatic encephalopathy and alcoholl withdrawal with agitation and was given phenobarb and ativan and the next morning was incresing somnolent with rising ammonia level, impending respiratory arrest and was transfered to the ICU where he required mechanical ventilation, hospital course is furhter complicated SBO/ileus related to hypokalemia, aspiration pneumonia. He was extubated on 03/08 and transferred to med floor on 03/09 and is making progressed Alcohol withdrawal--resolved -addiction med consult before dc Hepatic encephalopathy--resolved -No lactulose d/t diarrhea Aspiration pneumonia--Adequately treated with Abx since 03/03. Stop Zosyn Diarrhea, C dif negative, lactulose stopped, gi consult if persistent, consider imodium pSBO/Ileus-believed to be related hypokalemia, clinically resolved - start liquid diet and advance as tolerated -TPN stopped yesterday -surgery following, no indication for surgery HypOkalemia--related to diarrhea, now corrected -monitor Hyperchloremic metabolic acidosis--initiate thought to be related to TPN, but worse with TPN off, normal AG, check VBG, and Betahydroxy, possible related to diarrhea, consider bicab replacement and Nephrology consult Hyperglycemia--from TPN, A1C is 6 DVT prophylaxis-- heparin PT eval, out of bed Quality Stroke Does the patient have a stroke diagnosis?: No VTE Prior VTE?: No VTE Risk Level:: Medical - moderate - high VTE Device Contraindication: Treatment Not Indicated VTE Drug Contraindication: N/A - Med Ordered
[2024-03-12 12:16] LABS: Glucose, Whole Blood 149 mg/dL (60-115)
[2024-03-12 12:36] LABS: Beta-Hydroxybutyrate 0.37 mmol/L (0.02-0.27)
[2024-03-12 12:59] LABS: Venous Blood Gas Refer to POC result
[2024-03-12 12:59] LABS: VBG HCO3 15 mmol/L (22-26); VBG pCO2 25 mmHg; VBG pH 7.38 (7.32-7.43); VBG pO2 51 mmHg
[2024-03-12] MEDS: Sodium Bicarbonate 8.4% 150 MEQ in Dextrose 5 % 850 ML 100 MEQ IV ×2 (13:35→23:35)
--- NOTE | 2024-03-12 13:40 | PM.CNNEP ---
History of Present Illness Reason for Consult Consult date: 03/12/24 Chief Complaint Chief complaint: AMS History of Present Illness Narrative: pt is a 58 y/o male with a medical history of EtOH abuse. Admitted on 03/03 for with alcoholic encephalopathy, acute respiratory failure requiring intubation (extubated 03/08), SBO/ileus (resolved), and hypokalemia (resolved). He has been improving clinically, though has persistent loose stools and bicarb level has been trending down. Nephrology consulted for hyperchloremic metabolic acidosis. lactulose was discontinued d/t ongoing diarrhea c. diff negative pt reports he is doing well and feeling better each day denies shortness of breath, chest pain, abdominal pain reports +heartburn (reports discontinued chronic PPI with hospitalization) denies urinary symptoms, reports using urinal comfortably every few hours has rectal bag in place due to frequent, watery stools Review of Systems Constitutional: Denies anorexia and Denies fever(s) Cardiovascular: Denies no additional cardiovascular complaints, Denies chest pain and Denies dyspnea Respiratory: Reports no additional respiratory complaints and Denies dyspnea Gastrointestinal: Denies abdominal pain and Reports diarrhea (rectal bag in place for frequent, watery stools ) Genitourinary: Denies hematuria, Denies difficulty urinating, Denies dysuria, Denies flank pain, Denies urinary frequency and Denies urinary urgency Musculoskeletal: Denies arthralgias and Denies tingling Skin/Breast: Denies rash Denies focal weakness, Denies tingling and Denies tremor(s) PMFSH Past Medical History Medical History Alcohol abuse Epilepsy Social History Social History Household Members: Unknown / Unable to assess Housing: Unknown / Unable to assess Alcohol intake: current Alcohol intake frequency: 3 or more drinks per day Alcohol type: beer, wine and hard liquor Patient Tobacco Use Status: Tobacco use Unknown Meds Allergies Allergy/AdvReac Type Severity Reaction Status Date / Time No Known Allergies Allergy Verified 03/03/24 17:45 Active Medications: Current Medications Acetaminophen (Acetaminophen 325 Mg Tablet) 650 mg PO Q6H PRN PRN Reason: Pain, Mild (Pain Scale 1-3), fever or headache Last Admin: 03/04/24 20:34 Dose: 650 mg Heparin Sodium (Porcine) (Heparin Sodium,Porcine 5,000 Unit/Ml Vial) 5,000 unit SUBCUT Q8H [facility] Last Admin: 03/12/24 08:06 Dose: 5,000 unit Sodium Bicarbonate 150 meq/ (Dextrose) 1,000 mls @ 100 mls/hr IV .Q10H [facility] Last Admin: 03/12/24 13:35 Dose: 100 mls/hr Insulin Human Lispro (Insulin Lispro 100 Unit/Ml 3 Ml Vial) 0 unit SUBCUT Q6H [facility]; Protocol Last Admin: 03/12/24 12:10 Dose: Not Given Metoclopramide HCl (Metoclopramide Hcl 10 Mg/2 Ml Vial) 10 mg IVPUSH Q6H [facility] Last Admin: 03/12/24 13:39 Dose: Not Given Ondansetron HCl (Ondansetron Hcl 4 Mg/2 Ml Vial) 4 mg IVPUSH Q8H PRN PRN Reason: Nausea And Vomiting Sodium Chloride (0.9 % Sodium Chloride Flush 3 Ml Syringe) 3 ml IVFLUSH QSHIFT [facility] Last Admin: 03/12/24 07:37 Dose: Not Given Home Medications ?Medication ?Instructions ?Recorded ?Confirmed ?Last Taken ?Type No Known Home Meds 03/03/24 03/03/24 Unknown History Physical Exam Vital Signs: Last Vital Signs Temp 98.5 F 03/12/24 11:51 Pulse 88 03/12/24 11:51 Resp 17 03/12/24 11:51 BP 151/79 H 03/12/24 11:51 Pulse Ox 97 03/12/24 11:51 O2 Del Method Room Air 03/12/24 11:51 O2 Flow Rate 2 03/09/24 07:00 FiO2 30 03/08/24 12:00 BMI result Body Mass Index 31.4 Const General: comfortable and no acute distress Orientation/consciousness: oriented to person, oriented to place and oriented to time Neck Neck: Yes no JVD Resp Effort & Inspection: able to speak in complete sentences Auscultation: clear to auscultation bilaterally Cardio Jugular venous distension: no JVD Rate: regular rate Rhythm: regular rhythm Heart sounds: S1 normal heart sound present and S2 normal heart sound present GI Palpation (GI): Soft to palpation Rectal Exam - Male: No tenderness General: Yes no CVA tenderness Back/Spine/Pelvis Back: no CVA tenderness Skin Rashes: no rashes Neuro General: oriented to person, oriented to place and oriented to time Extrem General: Yes normal to inspection, No edema and No pedal edema Results Lab Results 03/12/24 09:42 03/12/24 09:42 Lab results: Chemistry 03/09/24 03/09/24 03/10/24 14:52 20:14 05:50 Sodium 142 145 143 Potassium 4.5 4.3 3.9 Carbon Dioxide 18 L 18 L 18 L BUN 51 H 40 H Creatinine 1.12 1.15 Calcium 9.1 9.1 Phosphorus 2.8 03/10/24 03/11/24 03/11/24 23:18 06:10 19:40 Sodium 144 145 139 Potassium 4.0 3.9 3.7 Carbon Dioxide 17 L 17 L 16 L BUN 29 H Creatinine 0.92 Calcium 9.2 Phosphorus 3.1 03/12/24 09:42 Sodium 136 Potassium 3.8 Carbon Dioxide 13 L BUN 25 H Creatinine 0.87 Calcium 9.0 Phosphorus 3.8 Hematology 03/10/24 03/12/24 23:18 09:42 WBC 12.4 H 15.4 H Hgb 14.2 13.9 L Plt Count 108 L 129 L Assessment and Plan (1) Hyperchloremic metabolic acidosis: Status: Acute Plan metabolic acidosis workup in progress start bicarb drip 100mL/hr shall monitor serum bicarb and potassium need to check venous lactate, order placed Shall continue to follow, workup in progress Discussed with Dr Skip Lopez Date of Service Date of Service: 03/12/24
[2024-03-12 15:26] VITALS: BP 123/77; PULSE 83; RESP 19; TEMP 36.9; O2SAT 97
--- NOTE | 2024-03-12 16:09 | MHC.RECOVRN ---
Met with pt in 467 after receiving Addiction Medicine consult. Per provider note- 58/M yo male with alcohol dependency presented to the hospital on 03/03 after been found on the floor, upon presentation was noted to be in hepatic encephalopathy and alcoholl withdrawal with agitation and was given phenobarb and ativan and the next morning was increasing somnolent with rising ammonia level, impending respiratory arrest and was transfered to the ICU where he required mechanical ventilation, hospital course is further complicated SBO/ileus related to hypokalemia, aspiration pneumonia. He was extubated on 03/08 and transferred to med floor on 03/09 and is making progress. Pts daughter, August, present with pts permission. Pt reports alcohol use, 1 bottle of wine daily x 3 years. Pt reports he has been drinking for 30 years with a significant increase since mother 3 years ago. 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 Pt denies hx treatment. Briefly discussed recovery resources and supports (pt eating lunch during interview) and provided pt with written information. Plan to follow up tomorrow. Denies questions or concerns at this time.
[2024-03-12 17:53] LABS: Glucose, Whole Blood 150 mg/dL (60-115)
[2024-03-12 20:00] VITALS: BP 143/77; PULSE 85; RESP 18; TEMP 37; O2SAT 97
[2024-03-12 20:09] LABS: Anion Gap 12 (12-20); Carbon Dioxide 16 mmol/L (22-29); Chloride 112 mmol/L (96-108); Potassium 3.3 mmol/L (3.3-5.1); Sodium 137 mmol/L (135-145)
[2024-03-12] MEDS: Potassium Chloride Packet 20 MEQ PACKET 40 MEQ PO (21:56)
[2024-03-12 23:57] VITALS: BP 140/75; PULSE 81; RESP 20; TEMP 36.8; O2SAT 98
[2024-03-13] VITALS (8 sets, daily range): BP systolic 111–148; BP diastolic 55–71; PULSE 78–93; RESP 16–20; TEMP 36.4–37.2; O2SAT 95–98
[2024-03-13 00:11] LABS: Glucose, Whole Blood 136 mg/dL (60-115)
[2024-03-13] MEDS: Metoclopramide HCl 10 MG/2 ML VIAL IVPUSH ×4 (04:35→20:50)
[2024-03-13 05:48] LABS: Glucose, Whole Blood 140 mg/dL (60-115)
[2024-03-13 07:06] LABS: Anion Gap 10 (12-20); Blood Urea Nitrogen 17 mg/dL (9-16); Calcium 8.2 mg/dL (8.4-10.2); Carbon Dioxide 19 mmol/L (22-29); Chloride 110 mmol/L (96-108); Creatinine Clr Calc Pharmacy 125.7; Estimated Glomerular Filt Rate > 60; Glucose Random 148 mg/dL (60-115); Magnesium 1.5 mg/dL (1.6-2.6); Phosphorus 2.4 mg/dL (2.7-4.5); Potassium 3.3 mmol/L (3.3-5.1); Sodium 136 mmol/L (135-145)
[2024-03-13 07:08] LABS: Hematocrit 35.8 % (42.0-52.0); Hemoglobin 12.4 g/dl (14.0-18.0); Mean Corpuscular HGB Conc 34.6 g/dl (31.0-36.0); Mean Corpuscular Hemoglobin 32.8 pg (27.0-33.0); Mean Corpuscular Volume 94.7 fL (80.0-98.0); Mean Platelet Volume 12.8 fL (9.4-12.4); Platelet Count 117 X10*3/uL (160-400); Red Blood Count 3.78 X10*6/uL (4.60-5.80); Red Cell Distribution Width 11.9 % (11.0-16.0)
[2024-03-13] MEDS: Heparin Sodium,Porcine 5,000 UNIT/ML VIAL 5000 UNIT SUBCUT ×2 (08:12→16:37)
[2024-03-13] MEDS: Magnesium Sulfate/H2O 2 GM/50 ML PIGGYBACK IV (08:13)
--- NOTE | 2024-03-13 10:05 | P.PNNP_ITS ---
Subjective Subjective Date of Service: 03/13/24 Interval history: pt is a 58 y/o male with a medical history of EtOH abuse. Admitted on 03/03 for with alcoholic encephalopathy, acute respiratory failure requiring intubation (extubated 03/08), SBO/ileus (resolved), and hypokalemia (resolved). He has been improving clinically, though has persistent loose stools and bicarb level has been trending down. Nephrology consulted for hyperchloremic metabolic acidosis. bicarb drip at 100mL/hr started yesterday, acidosis has been improving, serum bicarb up from 13 yesterday to 19 this a.m.; bicarb drip discontinued. lactic acid 2.7 on admission 03/03, 03/13 has normalized at 1.0 renal function remains normal pt reports stools have slowed down, no more liquid stools since starting regular diet pt reports he is doing well and feeling better each day, reports doing PT now denies shortness of breath, chest pain, abdominal pain reports +heartburn (reports discontinued chronic PPI with hospitalization) denies urinary symptoms, reports using urinal comfortably every few hours has rectal bag in place due to frequent, watery stools Physical Exam 2 Vital Signs: Vital Signs: Last Vital Signs Temp 97.8 F 03/13/24 07:48 Pulse 82 03/13/24 08:54 Resp 20 03/13/24 07:48 BP 122/71 03/13/24 08:54 Pulse Ox 97 03/13/24 08:54 O2 Del Method Room Air 03/13/24 07:48 O2 Flow Rate 2 03/09/24 07:00 FiO2 30 03/08/24 12:00 BMI result Body Mass Index 31.4 Const: General: comfortable and no acute distress O rientation/consciousness: oriented to person, oriented to place and oriented to time Neck: Neck: Yes no JVD Resp: Effort & Inspection: able to speak in complete sentences A uscultation: clear to auscultation bilaterally Cardio: Jugular venous distension: no JVD Rate: regular rate Rhythm: r egular rhythm Heart sounds: S1 normal heart sound present and S2 normal heart sound present GI: Palpation (GI): Soft to palpation Rectal Exam - Male: No tenderness : General: Yes no CVA tenderness Back/Spine/Pelvis: Back: no CVA tenderness Skin: Rashes: no rashes Neuro: General: oriented to person, oriented to place and oriented to time Extrem: General: Yes normal to inspection, No edema and No pedal edema Objective Data Labs 03/13/24 06:18 03/13/24 12:14 Labs: Laboratory Results - last 24 hr 03/12/24 03/12/24 03/12/24 09:42 12:13 12:56 WBC RBC Hgb Hct MCV MCH MCHC RDW Plt Count MPV Absolute Nucleated RBC Nucleated RBC % (auto) VBG pH 7.38 VBG pCO2 25 VBG pO2 51 VBG HCO3 15 L VBG O2 Saturation 80.0 VBG Base Excess -8.0 Sodium 136 Potassium 3.8 Chloride 113 H Carbon Dioxide 13 L Anion Gap 14 BUN 25 H Creatinine 0.87 Estim Creat Clear Calc 104.0 Estimated GFR > 60 POC Glucose 149 H Random Glucose 139 H Lactic Acid Calcium 9.0 Phosphorus 3.8 Magnesium 1.6 Beta-Hydroxybutyrate 0.37 H 03/12/24 03/12/24 03/13/24 17:50 19:46 00:02 WBC RBC Hgb Hct MCV MCH MCHC RDW Plt Count MPV Absolute Nucleated RBC Nucleated RBC % (auto) VBG pH VBG pCO2 VBG pO2 VBG HCO3 VBG O2 Saturation VBG Base Excess Sodium 137 Potassium 3.3 Chloride 112 H Carbon Dioxide 16 L Anion Gap 12 BUN Creatinine Estim Creat Clear Calc Estimated GFR POC Glucose 150 H 136 H Random Glucose Lactic Acid Calcium Phosphorus Magnesium Beta-Hydroxybutyrate 03/13/24 03/13/24 05:43 06:18 WBC 11.0 H RBC 3.78 L Hgb 12.4 L Hct 35.8 L MCV 94.7 MCH 32.8 MCHC 34.6 RDW 11.9 Plt Count 117 L MPV 12.8 H Absolute Nucleated RBC 0.000 Nucleated RBC % (auto) 0.0 VBG pH VBG pCO2 VBG pO2 VBG HCO3 VBG O2 Saturation VBG Base Excess Sodium 136 Potassium 3.3 Chloride 110 H Carbon Dioxide 19 L Anion Gap 10 L BUN 17 H Creatinine 0.72 Estim Creat Clear Calc 125.7 Estimated GFR > 60 POC Glucose 140 H Random Glucose 148 H Lactic Acid 1.0 Calcium 8.2 L D Phosphorus 2.4 L Magnesium 1.5 L Beta-Hydroxybutyrate Microbiology Microbiology Results: Microbiology 03/06/24 11:21 Blood - Venous Blood Culture - Final No growth after 5 days. 03/06/24 11:21 Blood - Venous Blood Culture - Final No growth after 5 days. 03/03/24 19:20 Blood - Venous Blood Culture - Final No growth after 5 days. 03/03/24 17:55 Blood - Venous Blood Culture - Final No growth after 5 days. 03/03/24 Unknown Urine Catheterized - Straight Catheter Urine Culture - Final No growth. Procedures Date of Service Date of Service: 03/13/24 Assessment & Plan Assessment and plan (1) Hyperchloremic metabolic acidosis: Status: Acute Plan metabolic acidosis metabolic acidosis has improved with sodium bicarbonate and as loose stools have resolved will continue to follow and do further workup as needed when seen in the office Patient needs 1 month follow up with nephrology outpatient for ongoing monitoring/workup if indicated Time Spent With Patient Time: Total time managing care of this patient today ____ minutes. Progress Note: Quality Stroke Does the patient have a stroke diagnosis?: No
--- NOTE | 2024-03-13 11:19 | MHC.CM.PN ---
CM [facility] FOLLOW-UP AND NEW PT APPT'S FOR PT [facility] 03/25 AT 11AM NEW PT APPT 03/27 AT 1:30PM
--- NOTE | 2024-03-13 11:29 | HO.PM.IMPN ---
Subjective Subjective Date of Service: 03/13/24 Interval History: f/u on complicated admission with alcoholic hepatic enceaphalopathy, acute respiratory failure s/p intubation, SBO/Ileus Hypokalemia. He continues to make signficant progress, mental status is sharper, doing better, pysically, diarrhea has stopped, Physical Exam Vital Signs: Vital Signs: Last Vital Signs Temp 97.8 F 03/13/24 07:48 Pulse 82 03/13/24 08:54 Resp 20 03/13/24 07:48 BP 122/71 03/13/24 08:54 Pulse Ox 97 03/13/24 08:54 O2 Del Method Room Air 03/13/24 07:48 O2 Flow Rate 2 03/09/24 07:00 FiO2 30 03/08/24 12:00 BMI result Body Mass Index 31.4 General: AO X 3, no acute distress Resp: CTA bilateral CVS: S1,S2,RRR GI: mild distention, some bowel sounds, no tendterness Skin: No rash Neuro: motor grossly intact Psych: appropriate affect Const: Other: General: AO X 3, no acute distress Resp: CTA bilateral CVS: S1,S2,RRR GI: +BS, NT, no distention Skin: No rash Neuro: motor grossly intact Psych: appropriate affect Objective Data Active Medications Acetaminophen (Acetaminophen 325 Mg Tablet) 650 mg PO Q6H PRN PRN Reason: Pain, Mild (Pain Scale 1-3), fever or headache Last Admin: 03/04/24 20:34 Dose: 650 mg Documented By: JOSE Heparin Sodium (Porcine) (Heparin Sodium,Porcine 5,000 Unit/Ml Vial) 5,000 unit SUBCUT Q8H GUERO Last Admin: 03/13/24 08:12 Dose: 5,000 unit Documented By: KYM Insulin Human Lispro (Insulin Lispro 100 Unit/Ml 3 Ml Vial) 0 unit SUBCUT Q6H GUERO; Protocol Last Admin: 03/13/24 06:03 Dose: Not Given Documented By: KD Non-Admin Reason: 140poc Metoclopramide HCl (Metoclopramide Hcl 10 Mg/2 Ml Vial) 10 mg IVPUSH Q6H GUERO Last Admin: 03/13/24 08:12 Dose: 10 mg Documented By: KYM Ondansetron HCl (Ondansetron Hcl 4 Mg/2 Ml Vial) 4 mg IVPUSH Q8H PRN PRN Reason: Nausea And Vomiting Sodium Chloride (0.9 % Sodium Chloride Flush 3 Ml Syringe) 3 ml IVFLUSH QSHIFT [facility] Last Admin: 03/13/24 08:29 Dose: Not Given Documented By: KYM Non-Admin Reason: IV Running Labs 03/13/24 06:18 03/13/24 06:18 Labs: Laboratory Results - last 24 hr 03/12/24 03/12/24 03/12/24 09:42 12:13 12:56 MCV MCH MCHC RDW Plt Count MPV Absolute Nucleated RBC Nucleated RBC % (auto) VBG pH 7.38 VBG pCO2 25 VBG pO2 51 VBG HCO3 15 L VBG O2 Saturation 80.0 VBG Base Excess -8.0 Anion Gap Estim Creat Clear Calc Estimated GFR POC Glucose 149 H Random Glucose Lactic Acid Calcium Phosphorus Magnesium Beta-Hydroxybutyrate 0.37 H 03/12/24 03/12/24 03/13/24 17:50 19:46 00:02 MCV MCH MCHC RDW Plt Count MPV Absolute Nucleated RBC Nucleated RBC % (auto) VBG pH VBG pCO2 VBG pO2 VBG HCO3 VBG O2 Saturation VBG Base Excess Anion Gap 12 Estim Creat Clear Calc Estimated GFR POC Glucose 150 H 136 H Random Glucose Lactic Acid Calcium Phosphorus Magnesium Beta-Hydroxybutyrate 03/13/24 03/13/24 05:43 06:18 MCV 94.7 MCH 32.8 MCHC 34.6 RDW 11.9 Plt Count 117 L MPV 12.8 H Absolute Nucleated RBC 0.000 Nucleated RBC % (auto) 0.0 VBG pH VBG pCO2 VBG pO2 VBG HCO3 VBG O2 Saturation VBG Base Excess Anion Gap 10 L Estim Creat Clear Calc 125.7 Estimated GFR > 60 POC Glucose 140 H Random Glucose 148 H Lactic Acid 1.0 Calcium 8.2 L D Phosphorus 2.4 L Magnesium 1.5 L Beta-Hydroxybutyrate Assessment and Plan (1) Aspiration pneumonia: Status: Acute (2) Acute hypoxemic respiratory failure: Status: Acute (3) Partial small bowel obstruction: Status: Acute Plan A 58-year-old male with a history of alcohol dependency presented to the hospital on 03/03 after being found on the floor. Upon arrival, he was noted to be in hepatic encephalopathy and experiencing alcohol withdrawal with agitation, for which he was treated with phenobarbital and Ativan. The following morning, he became increasingly somnolent, with rising ammonia levels and impending respiratory failure, leading to his transfer to the ICU where he required mechanical ventilation. His hospital course was further complicated by small bowel obstruction (SBO)/ileus related to hypokalemia and aspiration pneumonia. He was extubated on 03/08 and transferred to the medical floor on 03/09, where he is making progress. Alcohol withdrawal--resolved -addiction med consult before dc Hepatic encephalopathy--resolved -lactulose -Rifaximin 500 bid at dc Aspiration pneumonia--Has completed treatment with antibiotics. Diarrhea, C dif negative, no diarrhea since yesterda pSBO/Ileus-believed to be related hypokalemia, clinically resolved, he was on TPN, stopped 2 days ago -tolerating regular diet HypOkalemia--related to diarrhea, now corrected -monitor Hyperchloremic metabolic acidosis--due to bicab loss from diarrhea, normal gap. Treated with bicab replacement under direction of nephrology Hyperglycemia--from TPN, A1C is 6, pre-diabetes, watch diet DVT prophylaxis-- heparin PT recommends home, Probably home tomorrow with family support Quality Stroke Does the patient have a stroke diagnosis?: No VTE Prior VTE?: No VTE Risk Level:: Medical - moderate - high VTE Device Contraindication: Treatment Not Indicated VTE Drug Contraindication: N/A - Med Ordered
[2024-03-13 12:06] LABS: Glucose, Whole Blood 132 mg/dL (60-115)
[2024-03-13 12:27] LABS: Ammonia 40 umol/L (13-55)
[2024-03-13 12:31] LABS: Anion Gap 10 (12-20); Carbon Dioxide 21 mmol/L (22-29); Chloride 109 mmol/L (96-108); Potassium 3.4 mmol/L (3.3-5.1); Sodium 137 mmol/L (135-145)
--- NOTE | 2024-03-13 15:12 | MHC.CM.PN ---
A HCP has been documented. A copy has been placed on the chart and scanned into the EMR. The patient has transferred to the 3rd floor.
[2024-03-13] MEDS: 0.9 % Sodium Chloride Flush 3 ML SYRINGE IVFLUSH ×2 (15:16→21:28)
[2024-03-13 16:43] LABS: Glucose, Whole Blood 100 mg/dL (60-115)
[2024-03-13 19:59] LABS: Glucose, Whole Blood 128 mg/dL (60-115)
[2024-03-13 23:37] LABS: Glucose, Whole Blood 109 mg/dL (60-115)
[2024-03-14] MEDS: Heparin Sodium,Porcine 5,000 UNIT/ML VIAL 5000 UNIT SUBCUT ×2 (01:08→07:54)
[2024-03-14 03:26] VITALS: BP 128/66; PULSE 86; RESP 16; TEMP 37.2; O2SAT 95
[2024-03-14] MEDS: Metoclopramide HCl 10 MG/2 ML VIAL IVPUSH ×2 (04:23→07:54)
[2024-03-14 05:25] LABS: Glucose, Whole Blood 112 mg/dL (60-115)
[2024-03-14 07:33] LABS: Anion Gap 11 (12-20); Blood Urea Nitrogen 12 mg/dL (9-16); Calcium 8.7 mg/dL (8.4-10.2); Carbon Dioxide 19 mmol/L (22-29); Chloride 110 mmol/L (96-108); Creatinine Clr Calc Pharmacy 137.1; Estimated Glomerular Filt Rate > 60; Glucose Random 112 mg/dL (60-115); Magnesium 1.8 mg/dL (1.6-2.6); Phosphorus 2.8 mg/dL (2.7-4.5); Potassium 3.1 mmol/L (3.3-5.1); Sodium 137 mmol/L (135-145)
[2024-03-14] MEDS: 0.9 % Sodium Chloride Flush 3 ML SYRINGE IVFLUSH (07:53)
[2024-03-14 08:00] VITALS: BP 133/72; PULSE 86; RESP 16; TEMP 36.7; O2SAT 96
--- NOTE | 2024-03-14 09:06 | P.PNNP_ITS ---
Subjective Subjective Date of Service: 03/14/24 Interval history: pt is a 58 y/o male with a medical history of EtOH abuse. Admitted on 03/03 for with alcoholic encephalopathy, acute respiratory failure requiring intubation (extubated 03/08), SBO/ileus (resolved), and hypokalemia (resolved). He has been improving clinically, though has persistent loose stools and bicarb level has been trending down. Nephrology consulted for hyperchloremic metabolic acidosis. bicarb drip at 100mL/hr stopped yesterday 03/13, serum bicarb has remained fairly stable since (yesterday , , today 19) lactic acid 2.7 on admission 03/03, 03/13 has normalized at 1.0 renal function remains normal pt reports no more liquid stools since starting regular diet yesterday pt reports he is doing well and feeling better each day, reports doing PT now denies shortness of breath, chest pain, abdominal pain reports +heartburn (reports discontinued chronic PPI with hospitalization) denies urinary symptoms, reports using urinal comfortably every few hours has rectal bag in place due to frequent, watery stools Physical Exam 2 Vital Signs: Vital Signs: Last Vital Signs Temp 98.0 F 03/14/24 08:00 Pulse 86 03/14/24 08:00 Resp 16 03/14/24 08:00 BP 133/72 03/14/24 08:00 Pulse Ox 96 03/14/24 08:00 O2 Del Method Room Air 03/14/24 08:00 O2 Flow Rate 2 03/09/24 07:00 FiO2 30 03/08/24 12:00 BMI result Body Mass Index 31.4 Const: General: comfortable and no acute distress O rientation/consciousness: oriented to person, oriented to place and oriented to time Neck: Neck: Yes no JVD Resp: Effort & Inspection: able to speak in complete sentences A uscultation: clear to auscultation bilaterally Cardio: Jugular venous distension: no JVD Rate: regular rate Rhythm: r egular rhythm Heart sounds: S1 normal heart sound present and S2 normal heart sound present GI: Palpation (GI): Soft to palpation Rectal Exam - Male: No tenderness : General: Yes no CVA tenderness Back/Spine/Pelvis: Back: no CVA tenderness Skin: Rashes: no rashes Neuro: General: oriented to person, oriented to place and oriented to time Extrem: General: Yes normal to inspection, No edema and No pedal edema Objective Data Labs 03/13/24 06:18 03/14/24 05:21 Labs: Laboratory Results - last 24 hr 03/13/24 03/13/24 03/13/24 12:02 12:14 16:32 Sodium 137 Potassium 3.4 Chloride 109 H Carbon Dioxide 21 L Anion Gap 10 L BUN Creatinine Estim Creat Clear Calc Estimated GFR POC Glucose 132 H 100 Random Glucose Calcium Phosphorus Magnesium Ammonia 40 03/13/24 03/13/24 03/14/24 19:55 23:28 05:20 Sodium Potassium Chloride Carbon Dioxide Anion Gap BUN Creatinine Estim Creat Clear Calc Estimated GFR POC Glucose 128 H 109 112 Random Glucose Calcium Phosphorus Magnesium Ammonia 03/14/24 05:21 Sodium 137 Potassium 3.1 L Chloride 110 H Carbon Dioxide 19 L Anion Gap 11 L BUN 12 Creatinine 0.66 Estim Creat Clear Calc 137.1 Estimated GFR > 60 POC Glucose Random Glucose 112 Calcium 8.7 D Phosphorus 2.8 Magnesium 1.8 Ammonia Microbiology Microbiology Results: Microbiology 03/06/24 11:21 Blood - Venous Blood Culture - Final No growth after 5 days. 03/06/24 11:21 Blood - Venous Blood Culture - Final No growth after 5 days. 03/03/24 19:20 Blood - Venous Blood Culture - Final No growth after 5 days. 03/03/24 17:55 Blood - Venous Blood Culture - Final No growth after 5 days. 03/03/24 Unknown Urine Catheterized - Straight Catheter Urine Culture - Final No growth. Procedures Date of Service Date of Service: 03/14/24 Assessment & Plan Assessment and plan Plan metabolic acidosis stable patient appears well clinically metabolic acidosis has improved with sodium bicarbonate and as loose stools have resolved; overnight metabolic acidosis has remained stable without bicarbonate drip will continue to follow and do further workup as needed when seen in the office Patient needs 1 month follow up with nephrology outpatient for ongoing monitoring/workup if indicated Time Spent With Patient Time: Total time managing care of this patient today ____ minutes. Progress Note: Quality Stroke Does the patient have a stroke diagnosis?: No
--- NOTE | 2024-03-14 10:30 | MHC.CLN ---
F/U DIET=DIABETIC 1800 KCALS. PO INTAKE VARIABLE, 25-100%. SHELLI=14. PATIENT WITH MASD TO BUTTOCKS AND COCCYX. RD TO FOLLOW UP WEEKLY FOR PO INTAKE.
--- NOTE | 2024-03-14 10:49 | P.F2F_ITS ---
Service Date Service Date: 03/14/24 Encounter Date of encounter: 03/14/24 Encounter: Acute hospitalization Reasons for Services Signs and symptoms assessed: Home safety with physical therapy Reason for physical therapy: home safety and mobility, gait/transfer training and ADL training Homebound: Leaving the home is medically contraindicated at this time without the asist of a device and/or another person due th the listed conditions above and below. Reason homebound: unsteady gait / fall risk and unable to drive Certification: Based on the above findings, I certify that this patient is confined to the home and needs intermittent long term care, physical therapy and/or speech therapy, or continues to need occupational therapy. The patient is under my care, and I have initiated the establishment of the plan of care. The patient will be followed by a physician who will periodically review the plan of care. Time Spent With Patient Time: Total time managing care of this patient today ____ minutes.
--- NOTE | 2024-03-14 10:50 | P.DS_ITS ---
DS: Providers Provider Date of Service: 03/14/24 Date of admission: 03/03/24 20:09 Date of discharge: 03/14/24 Primary care physician: Unknown Physician Consults: 03/03/24 20:11 Consult to General Surgery Routine Consulting Provider: [facility] [place] [facility] Reason for consultation: ?partial sbo 03/03/24 20:17 Addiction Medicine Routine Consulting Provider: Addiction Covering Reason for consultation: alcohol use disorder 03/07/24 08:27 Consult to General Surgery Routine Consulting Provider: [facility] [place] [facility] Reason for consultation: small bowel obstruction Has provider been notified: No 03/11/24 11:59 Consult to Wound Care Routine Reason for consultation: left buttock wound 03/12/24 12:19 Consult to Nephrology Routine Consulting Provider: [facility] [place] [facility] Reason for consultation: persistent metabolic acidosis Has provider been notified: Yes DS: Diagnosis Discharge Diagnosis (1) Hyperchloremic metabolic acidosis: Status: Acute DS: Summary Hospital Course Hospital Course: 58-year-old male with pertinent history of alcohol use disorder who was brought to the emergency department for evaluation of altered mentation. Unable to obtain history from the patient. He has been the eye opening to verbal stimulus and falls back asleep. Not able to have a conversation or not following commands. History obtained with the help of ER provider and chart review. Patient was found to be confused and altered as per patient's son at home. Upon EMS arrival, they found open alcoholic drinks neck to the patient. Patient was responding to voice but immediately falling back asleep. Patient does have history of history of epilepsy as a child but has not had any seizures as an adult. As per the daughter, patient has been drinking for the last 3 days. Unable to obtain review of systems. In the emergency department, serum ammonia was found to be elevated. Patient found to be tachycardic and tachypneic. Concern for aspiration as per PHARMACY SCHEDULER. Also lactic acid 2.4. Patient was given IV fluids and given MI lactulose Hospital course Admitted to floor and over the next 24 hours withdrawal escalated. On 03/04 he was transferred to ICU; he was intubated secondary to aspiration and found to have a small-bowel obstruction likely secondary to hypokalemia. He was treated with rectal lactulose for ammonia level that was elevated to 170s on arrival. He completed a course of Zosyn for aspiration pneumonia and was successfully extubated. He did receive a short course of TPN secondary to a small-bowel obstruction that resolved spontaneously when divalent were repleted. He remained stable on the floor and diarrhea has subsequently resolved. He is no longer requiring lactulose. He was seen by addiction Medicine and is interested in possibly starting Vivitrol for alcohol cravings. At this point in time he is deemed medically acceptable for discharge. He has an appointment with PCP 03/27/2024. He has strongly advised to refrain from alcohol . Time Attestation Discharge Coordination Time (in mins): 35 Quality: Safe Use of Opioids Does Pt have an Active Cancer Diagnosis on the Problem List?: No Quality: Stroke Does the patient have a stroke diagnosis?: No Physical Exam Vital Signs: Vital Signs: Last Vital Signs Temp 98.0 F 03/14/24 08:00 Pulse 86 03/14/24 08:00 Resp 16 03/14/24 08:00 BP 133/72 03/14/24 08:00 Pulse Ox 96 03/14/24 08:00 O2 Del Method Room Air 03/14/24 08:00 O2 Flow Rate 2 03/09/24 07:00 FiO2 30 03/08/24 12:00 BMI result Body Mass Index 31.4 Const: Other: Awake alert no acute distress Resp: Other: Clear to auscultation bilaterally no rales rhonchi or wheezes Cardio: Other: No S4; positive S1-S2; no S3 murmurs rubs or gallops GI: Other: Soft nontender nondistended normoactive bowel sounds Neuro: Other: Awake alert oriented x3 no acute distress. Cranial nerves 2 through 12 grossly intact as tested motor is 5/5 all extremities sensation is intact Extrem: Other: No edema bilaterally DS: Data Data Completed and Pending Labs on day of discharge: Laboratory Results - last 24 hr 03/13/24 03/13/24 03/13/24 12:02 12:14 16:32 Sodium 137 Potassium 3.4 Chloride 109 H Carbon Dioxide 21 L Anion Gap 10 L BUN Creatinine Estim Creat Clear Calc Estimated GFR POC Glucose 132 H 100 Random Glucose Calcium Phosphorus Magnesium Ammonia 40 03/13/24 03/13/24 03/14/24 19:55 23:28 05:20 Sodium Potassium Chloride Carbon Dioxide Anion Gap BUN Creatinine Estim Creat Clear Calc Estimated GFR POC Glucose 128 H 109 112 Random Glucose Calcium Phosphorus Magnesium Ammonia 03/14/24 05:21 Sodium 137 Potassium 3.1 L Chloride 110 H Carbon Dioxide 19 L Anion Gap 11 L BUN 12 Creatinine 0.66 Estim Creat Clear Calc 137.1 Estimated GFR > 60 POC Glucose Random Glucose 112 Calcium 8.7 D Phosphorus 2.8 Magnesium 1.8 Ammonia Discharge Plan Discharge Anticipated Discharge Date/Time: 03/14/24 10:39 Patient Disposition: Home Health Service Discharge Diagnosis: Acute Metabolic Encephalopathy secondary to Alcohol withdrawl Referrals: Deidra Escalante PA-C [Physician [facility]] - 1 Week Discharge Medications: No Action No Known Home Meds Discharge Orders: Discharge Order (Routine); Ordered 03/14/24 Ordered By: Americo Puente Diet: Advance to usual diet Activity on Discharge: As tolerated Stand Alone Forms: Patient Portal Discharge page, Work/School Release Print Language: Thai Care Plan Goals: Follow up visit has been scheduled for 03/25 at 11:00 with Deidra Escalante. Your new patient appointment is 03/27/2024 at 01:30 with same provider Health Concerns: You must abstain from alcohol Plan of Treatment: Follow up with hospital follow up and new PCP as scheduled. Further recommen dations for returned to work as per that visit. Visiting nurse and PT will visit you at home Assessment: See discharge summary
--- NOTE | 2024-03-14 11:07 | MHC.RECOVRN ---
Met with pt to follow up and provide support. Pt reports he has looked through some of the resources that had been left with him, has not had a chance to go through everything. Discussed ARI, specifically naltrexone. Answered pts questions and provided education. Pt reports he is interested in naltrexone initiation and following up with the [facility]. Pt would like to call [facility] after dc to set up appt (needs to know when daughter is available to transport him). Denies other questions or concerns. Discussed with Tiffany Morales APRN.
[2024-03-14] MEDS: Potassium Chloride Packet 20 MEQ PACKET 40 MEQ PO (11:09)
--- NOTE | 2024-03-14 11:36 | MHC.CM.PN ---
CM MET WITH PT TO DISCUSS DC PLANS PT IS AWARE HE WILL BE UNABLE TO HAVE [facility] SERVICES AT THIS TIME HE HAS NO YET SEEN HIS NEW PCP HE HAS A POST DC APPT WITH HIS NEW PCP ON 03/25/24 AT 1100 HOURS AND A NEW PT APPT ON 03/27/24 AT 1330 HOURS PT IS AWARE THE PCP CAN ARRANGE VNA SERVICES ONCE HE COMPLETES THE 03/25 APPT
[2024-03-14 11:37] VITALS: BP 134/73; PULSE 88; RESP 16; TEMP 36.5; O2SAT 98
[2024-03-14 12:01] LABS: Glucose, Whole Blood 110 mg/dL (60-115)
== END 2024-03-14 13:51 | disposition home health service (06) | DRG 137 ==
LOC: HO.ED 19:55 → HO.EDOVER 21:01 → HO.ICU 03-04 11:53 → HO.IMC 03-09 12:59 → HO.S3 03-13 13:02
PROVIDERS: Internal Medicine; Internal Medicine Critical Care Medicine; Nurse Practitioner Family; Physician Assistant Medical; Admitting Provider Student in an Organized Health Care Education/Training Program; Emergency Provider Emergency Medicine; Visit Provider Hospitalist
DX: J69.0 Pneumonitis due to inhalation of food and vomit (principal); J96.01 Acute respiratory failure with hypoxia; R57.0 Cardiogenic shock; G93.41 Metabolic encephalopathy; K56.600 Partial intestinal obstruction, unspecified as to cause; E87.6 Hypokalemia; K76.82 Hepatic encephalopathy; E87.0 Hyperosmolality and hypernatremia; N17.9 Acute kidney failure, unspecified; K70.10 Alcoholic hepatitis without ascites; R73.9 Hyperglycemia, unspecified; E87.21 Acute metabolic acidosis; E87.8 Other disorders of electrolyte and fluid balance, not elsewhere classified; E87.29 Other acidosis; D69.59 Other secondary thrombocytopenia; D64.9 Anemia, unspecified; F10.239 Alcohol dependence with withdrawal, unspecified; Z20.822 Contact with and (suspected) exposure to COVID-19
CPT/HCPCS: 36415; 36600; 70450; 70496; 70498; 70551; 71045; 72125; 74018; 74177; 80048; 80051; 80053; 80076; 80307; 81001; 82010; 82040; 82140; 82272; 82550; 82803; 82947; 83036; 83605; 83690; 83735; 83880; 84100; 84132; 84443; 84478; 84484; 85007; 85025; 85027; 85610; 87040; 87086; 87493; 87635; 93005; 94002; 94003; 94799; 97110; 97116; 97162; 99285; C1758; J0295; J0330; J1120; J1644; J1650; J1885; J2060; J2250; J2251; J2405; J2470; J2543; J2560; J2704; J2765; J3010; J3411; J3475; J3480; J7120; P9047; Q9967

== ENCOUNTER → 2024-03-03 17:41 | Outpatient (BNV) | payer MEDICAID, SELFPAY | PROVIDERS: Admitting Provider Student in an Organized Health Care Education/Training Program; Emergency Provider Emergency Medicine; Visit Provider Internal Medicine Cardiovascular Disease | DX: R00.0 Tachycardia, unspecified (principal); I45.2 Bifascicular block; R94.31 Abnormal electrocardiogram [ECG] [EKG] | CPT/HCPCS: 93010 ==

== ENCOUNTER → 2024-03-03 20:09 | Outpatient (BNV) | payer MEDICAID, SELFPAY | PROVIDERS: Admitting Provider Student in an Organized Health Care Education/Training Program; Emergency Provider Emergency Medicine; Visit Provider Surgery | DX: K56.600 Partial intestinal obstruction, unspecified as to cause (principal) | CPT/HCPCS: 99222; 99232; 99233 ==

== ENCOUNTER → 2024-03-03 20:09 | Outpatient (BNV) | payer MEDICAID, SELFPAY | PROVIDERS: Admitting Provider Student in an Organized Health Care Education/Training Program; Emergency Provider Emergency Medicine; Visit Provider Nurse Practitioner Family | DX: E87.29 Other acidosis (principal) | CPT/HCPCS: 99222; 99232 ==

== ENCOUNTER → 2024-03-03 20:09 | Outpatient (BNV) | payer MEDICAID, SELFPAY | PROVIDERS: Admitting Provider Student in an Organized Health Care Education/Training Program; Emergency Provider Emergency Medicine; Visit Provider Student in an Organized Health Care Education/Training Program | DX: J69.0 Pneumonitis due to inhalation of food and vomit (principal); J96.01 Acute respiratory failure with hypoxia; K56.600 Partial intestinal obstruction, unspecified as to cause | CPT/HCPCS: 99223; 99232; 99233; 99239; 99499; G0180 ==

== ENCOUNTER → 2024-03-03 20:09 | Outpatient (BNV) | payer MEDICAID, SELFPAY | PROVIDERS: Admitting Provider Student in an Organized Health Care Education/Training Program; Emergency Provider Emergency Medicine; Visit Provider Internal Medicine Critical Care Medicine | DX: J69.0 Pneumonitis due to inhalation of food and vomit (principal); R57.0 Cardiogenic shock; J96.01 Acute respiratory failure with hypoxia; K56.600 Partial intestinal obstruction, unspecified as to cause | CPT/HCPCS: 31500; 36556; 99291 ==

== ENCOUNTER 2024-03-25 10:47 | Outpatient (AMB) | payer MEDICAID, SELFPAY ==
--- NOTE | 2024-03-25 10:49 | A.OFFPC_ITS ---
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: No Accompanied by: Daughter Allergies No Known Allergies Allergy (Verified 03/25/24 11:22) Medication List - Last Reconciled 03/25/24 by Deidra Escalante PA-C naltrexone 50 mg PO DAILY omeprazole magnesium (Prilosec OTC) 20 mg PO DAILY Tobacco use date assessed: 03/25/24 Dental Screening Dental Screen Date: 03/25/24 Did you have a dental visit in the last 12 months?: No Did you have a dental problem in the last 6 months where you did not have access to dental care?: No Was dental information given to patient?: Patient has dentist HPI [facility] 03/14 altered mental status HPI Details 58-year-old male with pertinent history of alcohol use disorder coming to the office for the 1st time. Patient was seen in [facility] 03[place]03/2024 for evaluation of altered mental status patient was admitted for alcohol withdrawal. On 03/04/2024 he was transferred to ICU where he was intubated secondary to aspiration and found to have small-bowel obstruction. He was treated with rectal lactulose for ammonia level and completed course of Zosyn for aspiration pneumonia.?Small bowel obstruction resolved spontaneously and he remained stable on the floor.? Started on Vivitrol for alcohol cravings and discharged 03/14/2024. Patient has not use the Vivitrol does not feel he has any cravings for alcohol at this time. He [facility] month to review his medications. He has not had any alcohol or cigarettes since discharge from the hospital and denies any cravings for either. Does mentioned he has phlegm in the throat throughout the day overall occasionally have to clear his throat. Denies any fevers or cough. He has been awaiting referral for physical therapy due to deconditioning while in the hospital. Patient was in the ICU and immobile for several days and did experience some deconditioning. He is unsteady on his feet and endorses lower extremity weakness but denies any falls. [facility] Medical History (Updated 03/25/24 @ 11:49 by Deidra Escalante PA-C) Serum ammonia increased Alcohol use disorder Alcohol dependence Alcohol abuse Epilepsy Surgical History No pertinent past surgical history Family History Father Cancer Mother Breast cancer Social History Household Members: Unknown / Unable to assess Housing: House Alcohol intake: former Patient Tobacco Use Status: Former Tobacco user Tobacco use type: Cigarette e-Cigarette/Vaping Use: Never Used Second Hand Smoke Exposure: No service: No Current occupational status: employed Current occupational exposures/hazards: No Cognitive needs: No Hearing needs: No Vision needs: No Questionnaire PHQ-9 Over the last 2 weeks, how often have you been bothered by any of the following problems? 1. Little interest or pleasure in doing things: not at all 2. Feeling down, depressed, or hopeless: not at all 3. Trouble falling or staying asleep, or sleeping too much: several days 4. Feeling tired or having little energy: not at all 5. Poor appetite or overeating: not at all 6. Feeling bad about yourself - or that you are a failure or have let yourself or your family down: several days 7. Trouble concentrating on things, such as reading the newspaper or watching television: not at all 8. Moving or speaking so slowly that other people could have noticed. Or the opposite - being so fidgety or restless that you have been moving around a lot more than usual: not at all 9. Thoughts that you would be better off or of hurting yourself in some way : not at all Total score: 2 Depression Screening Interpretation: Negative Depression Screening Done: Yes Source: Developed by Drs. Tobi Glover, Shakira Christopher, Domingo Hernandez and colleagues, with an educational anastasia from [employer]. Thrive Questionnaire Date Thrive assessed: 03/25/24 I am a: Patient What is your living situation today?: I have a steady place to live Within the past 12 months, did the food you bought not last and you didn't have the money to get more?: Never true Within the past 12 months, did you worry whether your food would run out before you got money to buy more?: Never true Do you have trouble paying for medicines?: No Do you have trouble getting transportation to medical appointments?: No Do you have trouble paying your heating and electricity bill?: No Do you have trouble taking care of your child, family member or friend?: No Do you have trouble with day-to-day activities such as bathing, preparing meals, shopping, managing finances, etc.?: No Are you currently unemployed and looking for a job?: No Are you interested in more education?: No Please select the resources that you would like help with: None Currently or been in a relationship where the following occur: No concerns reported THRIVE Score: 0 AUDIT C Alcohol Use Questionnaire (AUDIT-C) 1. How often do you have a drink containing alcohol?: Never Total Score: 0 MADDISON-7 AMB Questionnaire MADDISON-7 Date MADDISON - 7 assessed: 03/25/24 Feeling nervous, anxious, or on edge: 1 = Several days Not being able to stop or control worryin = Not at all Worrying too much about different things: 1 = Several days Trouble relaxin = Not at all Being so restless that it is hard to sit still: 0 = Not at all Becoming easily annoyed or irritable: 0 = Not at all Feeling afraid as if something awful might happen: 0 = Not at all Total MADDISON-7 score (0-4 normal; 5-9 mild; 10-14 moderate; 15-21 severe): 2 Source: Developed by Drs. Tobi Glover, Shakira Christopher, Domingo Hernandez and colleagues, with an educational anastasia from [employer]. Review of Systems Const Denies body aches, Denies fatigue, Denies fever(s), Denies frequent falls, Denies headache(s) and Denies weakness Eyes Reports no additional complaints and Denies change in vision ENT Denies dizziness, Denies facial pain, Denies headache(s) and Denies nasal congestion Card Denies chest pain, Denies syncope, Denies irregular heart rhythm, Denies leg edema, Denies lightheadedness and Denies dyspnea Resp Denies cough and Denies dyspnea GI Reports constipation (occasional), Denies dyspepsia, Reports diarrhea (occasional), Denies nausea and Denies vomiting Denies dysuria, Denies urinary frequency, Denies urinary hesitancy and Denies urinary urgency Musc Denies back pain and Denies myalgias Skin/Breast Reports system reviewed and no additional complaints, except as documented Neuro Details: LE weakness Denies dizziness, Denies syncope, Denies frequent falls, Denies headache(s) and Denies weakness Psych Reports no additional complaints Endo Denies fatigue Physical exam (Primary Care) Vital Signs: Last Vital Signs Pulse 94 03/25/24 10:50 BP 120/70 03/25/24 10:50 Pulse Ox 98 03/25/24 10:50 Oxygen Delivery Method Room Air 03/25/24 10:50 BMI result Body Mass Index 31.5 Tobacco/Smoking Status: Tobacco use Status Tobacco use date assessed 03/25/24 03/25/24 10:59 Patient Tobacco Use Status Former Tobacco user 03/25/24 10:59 Tobacco use type Cigarette 03/25/24 10:56 e-Cigarette/Vaping Use Never Used 03/25/24 10:59 Are you ready to quit: Yes Tobacco cessation counseling provided: Yes Items discussed: Nicotine replacement Relapse Prevention: discussed negative mood or depression after quitting and discussed dietary, exercise and/or lifestyle changes CPT code: 18448 - 4-10 Minutes PHQ-9: PHQ-9 Score PHQ-9: Total score 2 03/25/24 10:59 Depression Screening Interpretation: Negative Thrive Assessment: Date of Thrive Assessment Date Thrive assessed 03/25/24 03/25/24 10:59 Currently or been in a relationship where the following occur: No concerns reported Const General: cooperative, healthy appearing, comfortable and no acute distress Orientation/consciousness: patient oriented x3 [facility]: Yes normocephalic Ears: hearing grossly normal bilaterally General nose exam: Normal external nose present Eyes General: appearance normal, both eyes and all related structures Conjunctivae: conjunctivae normal Neck Neck: Yes full ROM and Yes no lymphadenopathy Resp Effort & Inspection: normal respiratory effort Auscultation: clear to auscultation bilaterally, no crackles, no rales, no rhonchi and no wheezes Cardio Rate: regular rate Rhythm: regular rhythm Skin General skin exam: no rashes or lesions noted Neuro General: patient oriented x3 Gait exam (Neuro): Normal gait present Extrem Other: Strength and sensation intact in bilateral lower extremities General: Yes normal to inspection, Yes full ROM and No edema Psych Affect: normal affect Attitude: cooperative Insight: Good insight present (Psych) Judgement: Good judgement present (Psych) Office Procedures Flu Questionnaire Does the patient have a severe egg allergy?: No Immunizations Fluarix Triv [id number] (PF) 45 mcg (15 mcg x 3)/0.5 mL IM syringe Performing Provider: Deidra Escalante PA-C [facility] Documented (not given) by: GRAYSON Saunders on 03/25/24 11:01 Reason Not Given: Patient Refused Coding Level of Care Code New Pt Level 4 (04921) Diagnoses Tobacco abuse Z72.0 Alcohol use disorder F10.90 Impaired glucose tolerance R73.02 Lower extremity weakness R29.898 Serum ammonia increased E72.20 Additional Codes Vital Signs *Quality* - CPT code: 07126 - 4-10 Minutes ([id number]) Assessment & Plan Assessment & Plan (1) Tobacco abuse: Code(s): Z72.0 - Tobacco use Category: Medical Plan: Smoking cigarettes and the use of tobacco can be harmful. We discussed the importance of stopping and options to aid in smoking cessation. Patient has not had any cigarettes since discharge from the hospital. Declines the need for nicotine replacement therapy at this time. (2) Alcohol use disorder: Code(s): F10.90 - Alcohol use, unspecified, uncomplicated Category: Medical Plan: Patient has not had any alcohol since discharge from the hospital and denies any cravings. He has not use Vivitrol. He has a point [facility]. (3) Impaired glucose tolerance: Code(s): R73.02 - Impaired glucose tolerance (oral) Category: Medical Plan: A1c 6.0% while in the hospital. Decrease the amount of carbohydrates such as pasta, bread, rice, and potatoes and limit the amount of sweets. Although fruits are generally healthy they should be eaten in moderation as they are still high in sugar. Discussed lifestyle and dietary changes and follow up in 3 months for repeat A1c. (4) Lower extremity weakness: Code(s): R29.898 - Other symptoms and signs involving the musculoskeletal system Category: Medical Plan: Patient having bilateral lower extremity weakness from deconditioning while in the hospital. Recommend physical therapy evaluation and treatment. Patient to avoid strenuous activity due to fall risk. (5) Serum ammonia increased: Code(s): E72.20 - Disorder of urea cycle metabolism, unspecified Category: Medical Plan: Ordered for repeat ammonia level to ensure downtrend. Plan Ordered for updated blood work and follow up in 3 months for annual exam and follow up on blood work. This note was constructed using voice recognition software. While every effort has been made to ensure accuracy and maintenance analyst, still areas may have been included sometimes these areas may affect the content or meeting of the given symptoms. Total time spent caring for the patient today was 30 minutes. This includes time spent before the visit reviewing the chart, time spent during the visit, and time spent after the visit and documentation. Orders: Orders Comprehensive Met. Panel 3 Months Z00.00 - Encounter for general adult medical examination without abnormal findings Free T4 (Free Thyroxine) 3 Months Z00.00 - Encounter for general adult medical examination without abnormal findings Hemoglobin A1c 3 Months Z00.00 - Encounter for general adult medical examination without abnormal findings Influenza [id number] Immunization Today Z23 - Encounter for immunization PT Evaluation and Treatment Today R29.898 - Other symptoms and signs involving the musculoskeletal system Complete Blood Count Auto Diff 3 Months Z00.00 - Encounter for general adult medical examination without abnormal findings TSH reflex Free T4 3 Months Z00.00 - Encounter for general adult medical examination without abnormal findings Vitamin B12 and Folate 3 Months Z00.00 - Encounter for general adult medical examination without abnormal findings Vitamin D 25-OH (D2 and D3) 3 Months Z00.00 - Encounter for general adult medical examination without abnormal findings Lipid Panel 3 Months Z00.00 - Encounter for general adult medical examination without abnormal findings Ammonia Today E72.20 - Disorder of urea cycle metabolism, unspecified Referrals Optometry Referral R73.02 - Impaired glucose tolerance (oral), Z00.00 - Encounter for general adult medical examination without abnormal findings Lung Cancer Screening Referral Z72.0 - Tobacco use Cologuard Test Z12.11 - Encounter for screening for malignant neoplasm of colon
[2024-03-25 10:50] VITALS: BP 120/70; PULSE 94; O2SAT 98; BMI 31.5
== END 2024-03-25 11:55 | disposition home or self-care (01) ==
LOC: HO.HMCH 10:47
DX: Z72.0 Tobacco use (principal); F10.90 Alcohol use, unspecified, uncomplicated; R73.02 Impaired glucose tolerance (oral); R29.898 Other symptoms and signs involving the musculoskeletal system; E72.20 Disorder of urea cycle metabolism, unspecified; Z23 Encounter for immunization

== ENCOUNTER 2024-03-28 10:34 | Outpatient (AMB) | payer MEDICAID, SELFPAY ==
--- NOTE | 2024-03-28 10:55 | A.OFFVISCC_ITS ---
Intake Visit Reasons: Intake Allergies No Known Allergies Allergy (Verified 03/25/24 11:22) HPI HPI Intake: Details: Patient presents for intake and evaluation of alcohol use disorder Referred by [facility] during recent admission for aspiration and alcohol withdrawal [place] [facility] that he was drinking at least a bottle of wine every day Since his mother 2.5 years ago Prior to that he denies any issues with alcohol or any other substance He was discharged with a prescription for naltrexone, but has not started it due to anxiety about medications He denies any alcohol use since discarge, and denies any thoughts of drinking BH History: Reports long history of anxiety symptoms Panic attacks History of SSRIs for MADDISON --could not tolerate Started on Klonopin by psychiatrist when he was in his 30's which he found helpful in managing his sx Clonazepam 0.5mg daily --tapered off after 15 years He reports that he was able to use Yoga and mindfulness exercises as a way to manage his anxiety for many years, but has not been practicing these skills with regularity for some time Medical: -hospitalization notes and labs reviewed -Primary care with [facility], recently seen for hospital follow up [facility] Medical History (Updated 03/25/24 @ 11:49 by Deidra Escalante PA-C) Serum ammonia increased Alcohol use disorder Alcohol dependence Alcohol abuse Epilepsy Surgical History No pertinent past surgical history Family History Father Cancer Mother Breast cancer Social History Household Members: Unknown / Unable to assess Housing: House Alcohol intake: former Patient Tobacco Use Status: Former Tobacco user Tobacco use type: Cigarette e-Cigarette/Vaping Use: Never Used Second Hand Smoke Exposure: No service: No Current occupational status: employed Current occupational exposures/hazards: No Cognitive needs: No Hearing needs: No Vision needs: No Review of Systems Const Reports as per HPI, Reports no additional complaints and Reports weakness (following hospitalization ) Neuro Reports weakness (following hospitalization ) Physical Exam Const General: cooperative, healthy appearing, comfortable and well groomed Orientation/consciousness: patient oriented x3 Limitations: no limitations Neuro General: patient oriented x3 Assessment & Plan Assessment & Plan (1) Alcohol use disorder: Code(s): F10.90 - Alcohol use, unspecified, uncomplicated Category: Medical Plan: * discussed revisiting coping strategies that had been helpful to him in the past and how to incorporate these into his current day to day * discussed grief and coping and how alcohol played into coping for him following the loss of his mother * discussed naltrexone as a tool and one that he did not need to use now if he was not comfortable with it * follow up 3-4 weeks
== END 2024-03-28 11:45 | disposition home or self-care (01) ==
LOC: HO.HCC 10:35
PROVIDERS: Visit Provider Nurse Practitioner Psychiatric/Mental Health
DX: F10.90 Alcohol use, unspecified, uncomplicated (principal)
CPT/HCPCS: 99204

== ENCOUNTER → 2024-03-28 10:34 | Outpatient (BNVA) | payer MEDICAID, SELFPAY | PROVIDERS: Visit Provider Nurse Practitioner Psychiatric/Mental Health | DX: F10.20 Alcohol dependence, uncomplicated (principal) | CPT/HCPCS: 99202 ==

== ENCOUNTER 2024-04-09 13:34 | Outpatient (AMB) | payer MEDICAID, SELFPAY ==
--- NOTE | 2024-04-09 13:42 | HO.NEPHOV_ITS ---
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 Patient was admitted to floor and over the next 24 hours his alcohol withdrawal escalated & was transferred to ICU. He was intubated secondary to aspiration and found to have a small-bowel obstruction likely secondary to hypokalemia. He was treated with rectal lactulose for ammonia level that was elevated to 170s on arrival. He completed a course of Zosyn for aspiration pneumonia and was successfully extubated. He did receive a short course of TPN secondary to a small-bowel obstruction that resolved spontaneously when divalent were repleted. He is here in follow up. He has been abstaining from alcohol [facility] Medical History (Updated 04/09/24 @ 14:13 by Rajesh Valdivia MD) Serum ammonia increased Alcohol use disorder Alcohol dependence Alcohol abuse Epilepsy Surgical History No pertinent past surgical history Family History Father Cancer Mother Breast cancer Social History Household Members: Unknown / Unable to assess Housing: House Alcohol intake: former Patient Tobacco Use Status: Former Tobacco user Tobacco use type: Cigarette e-Cigarette/Vaping Use: Never Used Second Hand Smoke Exposure: No service: No Current occupational status: employed Current occupational exposures/hazards: No Cognitive needs: No Hearing needs: No Vision needs: No Review of Systems Const All systems reviewed & are unremarkable except as noted in HPI and below Physical Exam Vital Signs: Last Vital Signs Pulse 99 04/09/24 13:43 BP 120/60 04/09/24 13:43 Pulse Ox 97 04/09/24 13:43 Oxygen Delivery Method Room Air 04/09/24 13:43 BMI result Body Mass Index 31.5 Const General: comfortable and no acute distress Orientation/consciousness: patient oriented x3 HEENT Head: Yes normocephalic Mouth: Normal oral and palatal mucosa present Eyes EOM: EOMs intact bilaterally Neck Neck: Yes supple Resp Auscultation: clear to auscultation bilaterally Cardio Jugular venous distension: no JVD Rate: regular rate GI Palpation (GI): Soft to palpation Auscultation: normal bowel sounds General: Yes no CVA tenderness Back/Spine/Pelvis Back: no CVA tenderness Skin General skin exam: no rashes or lesions noted Neuro General: patient oriented x3 and moves all extremities Extrem General: Yes no pedal edema Results Reviewed Nephrology Results: Hgb 12.4 g/dl (14.0-18.0) L 03/13/24 WBC 11.0 X10*3/uL (4.8-10.8) H 03/13/24 Plt Count 117 X10*3/uL (160-400) L 03/13/24 Sodium 137 mmol/L (135-145) 03/14/24 Potassium 3.1 mmol/L (3.3-5.1) L 03/14/24 Chloride 110 mmol/L (96-108) H 03/14/24 Carbon Dioxide 19 mmol/L (22-29) L 03/14/24 BUN 12 mg/dL (9-16) 03/14/24 Creatinine 0.66 mg/dL (0.5-1.4) 03/14/24 Calcium 8.7 mg/dL (8.4-10.2) 03/14/24 Phosphorus 2.8 mg/dL (2.7-4.5) 03/14/24 Urine Protein 30 (1+) mg/dL (Neg-Trace) H 03/03/24 Assessment & Plan Assessment & Plan (1) Hypokalemia: Code(s): E87.6 - Hypokalemia Category: Medical (2) Metabolic acidosis: Code(s): E87.20 - Acidosis, unspecified Category: Medical Plan Needs continued abstinence from alcohol. Metabolic acidosis had improved with sodium bicarbonate and as loose stools have resolved. Needs continued K replacement and regular diet. No medication changes made today. Follow up labs ordered; Answered all questions. Orders: Orders Creatinine 6 Months E87.6 - Hypokalemia Blood Urea Nitrogen 6 Months E87.6 - Hypokalemia Electrolytes 6 Months E87.6 - Hypokalemia Calcium 6 Months E87.6 - Hypokalemia Electrolytes 1 Month E87.6 - Hypokalemia Magnesium 6 Months E87.6 - Hypokalemia Coding Level of Care Code Est Pt Level 4 (60540) Diagnoses Hypokalemia E87.6 Metabolic acidosis E87.20
[2024-04-09 13:43] VITALS: BP 120/60; PULSE 99; O2SAT 97; BMI 31.5
== END 2024-04-09 14:05 | disposition home or self-care (01) ==
PROVIDERS: Visit Provider Internal Medicine Nephrology
DX: E87.6 Hypokalemia (principal); E87.20 Acidosis, unspecified
CPT/HCPCS: 99214

== ENCOUNTER → 2024-04-09 13:34 | Outpatient (BNVA) | payer MEDICAID, SELFPAY | PROVIDERS: Visit Provider Internal Medicine Nephrology | DX: E87.6 Hypokalemia (principal); E87.20 Acidosis, unspecified; F10.20 Alcohol dependence, uncomplicated | CPT/HCPCS: 99212 ==

== ENCOUNTER 2024-05-02 09:51 | Outpatient (AMB) | payer OTHER, SELFPAY ==
--- NOTE | 2024-05-02 10:12 | A.OFFVISCC_ITS ---
Intake Visit Reasons: MAT follow up Allergies No Known Allergies Allergy (Verified 04/09/24 13:43) HPI HPI MAT follow up: Details: Patient presents for follow up of AUD Reports he continues to abstain from alcohol and 2 months no cigarettes as well \ Has not taken naltrexone, but he does have it at home He reports no cravings for alcohol He has a strong support network, and many are aware of his AUD He has not been able to return to work still in PT 3X/wk some numbness/tingling ?neuropathy Has PCP appt in May Review of Systems Const Reports as per HPI and Reports no additional complaints Physical Exam Const General: cooperative, healthy appearing and well groomed Nutritional Appearance: average body habitus Orientation/consciousness: patient oriented x3 Limitations: no limitations Neuro General: patient oriented x3 Psych Affect: normal affect Attitude: cooperative Thought process: Normal thought process present Thought content: Normal thought content present Insight: Good insight present (Psych) Judgement: Good judgement present (Psych) Assessment & Plan Assessment & Plan (1) Alcohol use disorder: Code(s): F10.90 - Alcohol use, unspecified, uncomplicated Category: Medical Plan: * relapse prevention discussion * follow up 2 months [facility] Medical History (Updated 04/21/24 @ 13:18 by Mallory Rehman PA-C) Personal history of nicotine dependence Serum ammonia increased Alcohol use disorder Alcohol dependence Alcohol abuse Epilepsy Surgical History No pertinent past surgical history Family History Father Cancer Mother Breast cancer Social History Household Members: Unknown / Unable to assess Housing: House Alcohol intake: former Patient Tobacco Use Status: Former Tobacco user Tobacco use type: Cigarette e-Cigarette/Vaping Use: Never Used Second Hand Smoke Exposure: No service: No Current occupational status: employed Current occupational exposures/hazards: No Cognitive needs: No Hearing needs: No Vision needs: No
== END 2024-05-02 11:08 | disposition home or self-care (01) ==
PROVIDERS: Visit Provider Nurse Practitioner Psychiatric/Mental Health
DX: F10.90 Alcohol use, unspecified, uncomplicated (principal)
CPT/HCPCS: 99213

== ENCOUNTER → 2024-05-02 09:51 | Outpatient (BNVA) | payer OTHER, SELFPAY | PROVIDERS: Visit Provider Nurse Practitioner Psychiatric/Mental Health | DX: F10.90 Alcohol use, unspecified, uncomplicated (principal) | CPT/HCPCS: 99212 ==

== ENCOUNTER 2024-05-26 10:46 | Outpatient (RCR) | payer OTHER, SELFPAY ==
--- NOTE | 2024-05-01 16:12 | MHC.PT.EP ---
[facility] [place] [facility] [place] [facility] [place] [facility] [address] Mark Hughes [address] [phone] F: [phone] F: [phone] F: [phone] F: [phone] Physical Therapy Plan of Care Date of Evaluation: 04/30/24 Date of Surgery: Diagnosis: B LE weakness s/p hospitalization. Assessment: Pt is a 58 y/o male referred to PT for B LE weakness following complicated hospital admission with alcoholic hepatic encephalopathy, acute respiratory failure with intubation, SBO/Ileus Hypokalemia and reports B lower leg n/t and burning pain at times which he reports was not present prior to hospitalization. He reports since discharge he has had decreased tolerance and ability to perform stairs and transfers without being exhausted, decreased tolerance for standing and walking for duration secondary to decreased B LE strength, decreased core strength, calf pain and demonstrates easy fatigue and decreased balance. Pt is deemed an appropriate candidate to receive skilled PT services to address their physical impairments in order to improve their functional ability. Frequency and Duration: The patient will be seen 2 x/ wk x 3 wks. Short Term Goals: initiate home program. Property And Supply Officer Goals: Pt will report no longer has calf pain with first step activities and long duration standing. I with home program. Pt will improve LEFI outcome measure by at least 9 points. Pt will improve B knee extension MMT by at least 1/2 MMT grade; initial: 4/5. Improve B hip abd MMT by at least 1/2 MMT grade; initial: 4/5. Treatment Plan: Modalities to reduce pain, spasms and effusion. Manual therapy to restore motion and function. Therapeutic exercise to improve strength and flexibility. Neuromuscular re-education for posture and balance. Therapeutic activities to return to functional activities of daily living. Electronically signed by: Jose Francisco Vitale PT. Please sign and return to therapist. Thank you for your referral.
--- NOTE | 2024-05-26 14:08 | MHC.PT.DC ---
[facility] [place] Office [place] Office [place] Office [address] Mark Hughes [address] [phone] F: [phone] F: [phone] F: [phone] F: [phone] Physical Therapy Discharge Report Diagnosis: B LE weakness s/p hospitalization. Date of Surgery: Date of Evaluation: 04/30/24 Date of Discharge: 05/26/24 Treatments to Date: 7 Cancellations to Date: No Shows to Date: Discharge Status: Improved Function Independent with HEP Discharge Summary: Dave has been an active and motivated participant in his therapy although he has met many of his therapeutic goals and has improved his strength and balance though he does persist with B foot pain. He is in agreement with DC as he is improved and is I with hos home program. Electronically signed by: Jose Francisco Vitale PT. Please sign and return to therapist. Thank you for your referral.
== END 2024-05-26 12:57 | disposition home or self-care (01) ==
LOC: HO.PT 10:46
DX: R29.898 Other symptoms and signs involving the musculoskeletal system (principal)
CPT/HCPCS: 97110; 97112; 97161; 97530

== ENCOUNTER 2024-06-06 10:22 | Outpatient (AMB) | payer OTHER, SELFPAY ==
--- NOTE | 2024-06-06 07:51 | A.OFFVIS_ITS ---
Intake Visit Reasons: Former Smoker Allergies No Known Allergies Allergy (Verified 04/09/24 13:43) HPI HPI Former Smoker: Details: Initial visit for this 58yo former smoker with a 30PYH. Patient started smoking at age 23 for 35 years at 1ppd. He quit 02/26/2024. . Denies marijuana use. Denies second hand smoke exposure. Denies exposure to chemicals or substances like asbestos. . Denies known family history of lung cancer. Denies personal history of cancers. Denies chest CT in last year. . Denies recent travel outside the [place]. Denies recent respiratory illness or recent hospitalization for respiratory issues. Denies testing positive for COVID. Denies receiving COVID Vaccine. . Denies fever, chills, new/worsening cough, hemoptysis, hoarseness or dysphagia. Denies significant chest pain, significant dyspnea or unintentional weight loss. Patient Lung Cancer Screening Questionnaire reviewed with patient by provider. . Shared Decision Making Completed. Patient meets criteria. Discussed in detail with patient, the risk vs benefit of LDCT screening. Patient consents to proceed with scan. Discussed and encouraged continued smoking cessation. [facility] Medical History (Updated 06/06/24 @ 10:39 by Mallory Rehman PA-C) Epilepsy Alcohol use disorder History of encephalopathy History of acute respiratory failure History of small bowel obstruction Chronic anemia Impaired glucose tolerance Personal history of nicotine dependence Surgical History No pertinent past surgical history Family History Father Cancer Mother Breast cancer Social History (Updated 06/06/24 @ 10:39 by Mallory Rehman PA-C) Household Members: Unknown / Unable to assess Housing: House Alcohol intake: former Patient Tobacco Use Status: Former Tobacco user Tobacco use type: Cigarette Years Smoked: (onset 23yo, 1ppd x 35yrs, 30pyh - quit 02/26/24) e-Cigarette/Vaping Use: Never Used Second Hand Smoke Exposure: No service: No Current occupational status: employed Current occupational exposures/hazards: No Cognitive needs: No Hearing needs: No Vision needs: No Assessment & Plan Assessment & Plan (1) Personal history of nicotine dependence: Comment: (former smoker - onset 23yo, 1ppd x 35yrs, 30pyh - quit 02/26/24) Code(s): Z87.891 - Personal history of nicotine dependence Category: Medical Plan: - SDM visit completed today in office. - Patient meets criteria for LDCT for lung cancer screening purposes and is asymptomatic. - Smoking cessation counseling offered. Patients can always call [phone]. - Will arrange for a LDCT scan of the chest for screening purposes at [facility]. - Risks, benefits, and alternatives were discussed in detail and the patient agrees to proceed. - Risks discussed include but are not limited to: radiation exposure, anxiety during testing and while awaiting results, false negatives, false positives and possibility of additional intervention such as further imaging or surgical procedures for benign disease. - Benefits are obviously detection of lung cancer at an early stage which can lead to improved outcomes. - Discussed the importance of screening program compliance with adherence to yearly LDCT scan as scheduled - or sooner interval scans for personalized screening regimen. - Discussed follow up plan. Our office will send a letter discussing results and if needed set up phone call and office visit based on CT findings. - Patient educated on results categorization and the management decisions for suspicious findings potentially found on the screening LDCT scan. Any patient with a Lung RADS score of 3 or 4 will be reviewed by a multidisciplinary team at [facility] to form a plan of action in regards to scan findings. - If further work up is warranted for a suspicious lung finding this will be followed by the Lung Cancer Screening program in conjunction with the Thoracic Surgery Department at [facility]. - A copy of the office note and LDCT will be sent to the patient's PCP - as well as documentation on any associated further plans of care. - Incidental findings on LDCT are the PCP's responsibility. These findings are indicated with an S finding on the LDCT Assessment. A note discussing the findings will be sent to the PCP who is then responsible for further management. - All questions answered.? Coding Level of Care Code Lung Cancer Screening [id number] Diagnoses Personal history of nicotine dependence Z87.891
== END 2024-06-06 10:50 | disposition home or self-care (01) ==
PROVIDERS: Visit Provider Physician Assistant Medical
DX: Z87.891 Personal history of nicotine dependence (principal)
CPT/HCPCS: G0296

== ENCOUNTER 2024-06-06 10:51 | Outpatient (REF) | payer OTHER, SELFPAY ==
--- NOTE | ~2024-06-06 | CT_ITS ---
CLINICAL HISTORY: Z87.891 - Personal history of nicotine dependence CT lung cancer screening (LDCT) Comparison: None Technique: Axial CT images of the chest using low-dose technique. Referring provider counseled the patient on shared decision-making for LDCT screening. Additional counseling was provided on smoking cessation. Effective radiation dose total: DLP 73 mGycm, CTDIvol 2.2 mGy. Findings: Lung: There are no pulmonary nodules. There are linear foci of atelectasis or scarring within the right lower lobe. No consolidation or pleural effusion. Coronary artery calcifications: Moderate Limited upper abdomen: Unremarkable Other: None Impression: Category 1: Normal; continue annual screening. ##L1 ## Category 1: Normal; continue annual screening Category 2: Benign appearance or behavior, continue annual screening Category 3: Probably benign, [address] recommended Category 4A: Suspicious, [address] recommended; may consider PET/CT Category 4B: Suspicious, Additional diagnostics and/or tissue sampling recommended Category 4X: Suspicious, Additional diagnostics and/or tissue sampling recommended Category 0: Recalls (incomplete screen due to Incomplete coverage, Noise, Respiratory motion, Expiration, Obscured by acute abnormality) This document has been electronically signed by: Maegan Weber MD on 06/06/2024 13:18:32
== END 2024-06-06 10:52 | disposition home or self-care (01) ==
LOC: HO.CT 10:51
PROVIDERS: Visit Provider Physician Assistant Medical
DX: Z12.2 Encounter for screening for malignant neoplasm of respiratory organs (principal); Z87.891 Personal history of nicotine dependence
CPT/HCPCS: 71271; G0296

== ENCOUNTER 2024-06-23 07:09 | Outpatient (REF) | payer OTHER, SELFPAY ==
--- OUTSIDE RECORDS SUMMARY | 2024-06-23 07:12 | XMS_ITS | Clinical Summary ---
Author Organization [facility] Address [address] [place] [address] Care Team Providers Care Long Lines Operator Name Role Phone Shaquille Nettles DO Primary Care Provider Unavaila ble Allergies No known active allergies Medications Medication Sig Dispensed Refills Start Date End Date Status IBUPROFEN 200 MG OR CAPS as directed 0 Active FLONASE 50 MCG/ACT NA SUSP 2 sprays to each nostril QD 16g 5 10/26/2006 Active clonazepam (KLONOPIN) 0.5 MG tablet Take 1 Tab by mouth daily as needed for Anxiety. 30 Tab 4 05/08/2019 Active Active Problems Problem Noted Date 'Kflzz-dsn-ezsek' infant with signs of f etal malnutrition 04/30/2018 Panic disorder with agoraphobia and mode rate panic attacks 06/30/2009 Allergic rhinitis, cause unspecified 05/2006 Family History Relation Name Status Comments Brother 1 Alive Brother 2 Alive Daughter Alive Father Alive Maternal Grandfather (Age 76) dm , cancer Mother Alive Sister Alive Son Alive Social History Tobacco Use Types Packs/Day Years Used Date Smoking Tobacco: Former Comments:5 cigs per day Alcohol Use Standard Drinks/Week Comments Yes 0 (1 standard drink = 0.6 oz pur e alcohol) soc Sex Assigned at Date Recorded Not on file Last Filed Vital Signs Vital Sign Reading Time Taken Comments Blood Pressure 120/84 12/09/2012 10:34 AM EDT Pulse 74 12/09/2012 10:34 AM EDT Temperature 37.7 ??C (99.9 ??F) 12/09/2012 10:34 AM E DT Respiratory Rate 14 12/09/2012 10:34 AM EDT Oxygen Saturation - - Inhaled Oxygen Concentration - - Weight 102.5 kg (226 lb) 12/09/2012 10:34 AM EDT Height - - Body Mass Index - - Plan of Treatment Health Maintenance Due Date Last Done Comments Covgilbert-19 Vaccine (#1) 06/26/1967 HEPATITIS C SCREENING 1984 TOBACCO CHECK/ADVISE 1984 DTAP/TDAP/TD (1 - Tdap) 1985 BASELINE HEALTH EXAM 40-64 2006 10/28/2002 CHOLESTEROL SCREENING 10/29/2007 10/28/2002 , 07/16/1998, 06/02/1998, Additional history exists COLON CANCER SCREENING 2016 SHINGLES VACCINE (1 of 2) 2016 INFLUENZA (#1) 2024 BMI CHECK/ADVISE 05/28/2024 DEPRESSION SCREENING/FOLLOWUP 05/28/2024, 09/02/2004, 09/01/2004, Additional history exists SOCIAL NEEDS SCREENING 05/28/2024 PNEUMOCOCCAL VACCINE FOR HIG H RISK PATIENTS (#1) 12/25/2031 Care Teams Long Lines Operator Relationship Specialty Start Date End Date Shaquille Nettles DO PCP - General Internal Medicine 08/15/16
[2024-06-23 07:22] LABS: MANUAL DIFF FLAG NO
[2024-06-23 07:40] LABS: Basophils Percent Auto 0.3 % (0-2); Eosinophils Absolute Auto 0.1 X10*3/uL (0.0-0.4); Eosinophils Percent Auto 1.4 % (0-4); Hematocrit 39.8 % (42.0-52.0); Imm Gran Abs Auto 0.03 X10*3/uL (0.00-0.03); Imm Gran Pct Auto 0.4 % (0.0-0.4); Lymphocytes Absolute Auto 2.4 X10*3/uL (1.2-4.9); Lymphocytes Percent Auto 32.9 % (20-40); Mean Corpuscular HGB Conc 35.2 g/dl (31.0-36.0); Mean Corpuscular Hemoglobin 29.5 pg (27.0-33.0); Monocytes Absolute Auto 0.5 X10*3/uL (0.1-1.2); Monocytes Percent Auto 7.3 % (2-11); Neutrophils Absolute Auto 4.2 x10*3/uL (2.0-8.3); Neutrophils Percent Auto 57.7 % (45-73); Red Blood Count 4.74 X10*6/uL (4.60-5.80); Red Cell Distribution Width 11.9 % (11.0-16.0); White Blood Count 7.3 X10*3/uL (4.8-10.8)
[2024-06-23 07:44] LABS: Estimated Average Glucose 237 mg/dL; Hemoglobin A1C 305.7988 umol/L; Hemoglobin A1c % 9.9 % (<6.0); Total Hemoglobin (HGBA1C) 3622.1669 umol/L
[2024-06-23 08:13] LABS: Alanine Aminotransferase 19 U/L (0-40); Alkaline Phosphatase 108 U/L (39-117); Anion Gap 14 (12-20); Aspartate Amino Transferase 17 U/L (5-37); Bilirubin Total 0.8 mg/dL (0.0-1.0); Blood Urea Nitrogen 18 mg/dL (9-16); Calcium 9.8 mg/dL (8.4-10.2); Carbon Dioxide 20 mmol/L (22-29); Chloride 105 mmol/L (96-108); Cholesterol 149 mg/dL (<200); Estimated Glomerular Filt Rate > 60; HDL Cholesterol 41 mg/dL (>40); LDL Cholesterol Calculated 90 mg/dL (<100); Sodium 135 mmol/L (135-145); Total Protein 8.4 g/dL (6.5-8.0); Triglycerides 93 mg/dL (<150)
[2024-06-23 08:26] LABS: TSH reflex Free T4 1.42 uIU/mL (0.32-4.0)
[2024-06-23 08:28] LABS: Glucose Random 370 mg/dL (60-115)
[2024-06-23 08:34] LABS: Folate 17.3 ng/mL (> or = 4.0); Vitamin B12 707 pg/mL (200-900)
[2024-06-23 08:40] LABS: Mean Platelet Volume 13.4 fL (9.4-12.4); Platelet Count 75 X10*3/uL (160-400)
[2024-06-28 01:43] LABS: Vitamin D 25-OH, D2 <4 ng/mL; Vitamin D 25-OH, D3 28 ng/mL; Vitamin D 25-OH, Total 28 ng/mL (30-100)
== END 2024-06-23 07:10 | disposition home or self-care (01) ==
LOC: HO.LAB 07:09
DX: Z00.00 Encounter for general adult medical examination without abnormal findings (principal)
CPT/HCPCS: 36415; 80053; 80061; 82306; 82607; 82746; 83036; 84439; 84443; 85025

== ENCOUNTER 2024-06-25 10:54 | Outpatient (AMB) | payer OTHER, SELFPAY ==
--- NOTE | 2024-06-25 10:56 | MHC.PC.OV ---
Vital Signs 06/25/24 10:57 Height 5 ft 8 in Weight 218 lb BMI 33.1 BP 140/66 H Blood Pressure Location Lt brachial Position Sitting Pulse 88 Pulse Source Pulse Oximeter Temp 97.3 F Temp Source Skin Pulse Oximetry (%) 98 Oxygen Delivery Method Room Air Intake Visit Reasons: annual exam Intake Note: Patient is here today for a physical. Biomedical Instrument Technician Required: No Inspector And Hand Packager: Present Accompanied by: Daughter Allergies No Known Allergies Allergy (Verified 06/25/24 10:57) Medication List - Last Reconciled 06/25/24 by Deidra Escalante PA-C dapagliflozin propanediol (Farxiga) 5 mg PO DAILY gabapentin 100 mg PO BEDTIME omeprazole magnesium (Prilosec OTC) 20 mg PO DAILY Tobacco use date assessed: 06/25/24 Dental Screening Dental Screen Date: 06/25/24 Did you have a dental visit in the last 12 months?: No Did you have a dental problem in the last 6 months where you did not have access to dental care?: No Was dental information given to patient?: No HPI annual exam HPI Details 58-year-old male with past medical history of chronic anemia, impaired glucose tolerance and alcohol use disorder last seen 02/2024 coming in for follow up.? In review of the notes, patient had lung cancer screening completed 06/06/2024 normal advised to continue with annual screening.? [facility] last seen 04/2024 advised to follow up in 2 months.? Patient [place] [facility] [place] advised to abstain from alcohol advised to continue potassium replacement and regular diet and follow up in 6 months.? Patient tells us today he finished his Cologuard test last week mail it in awaiting results at this time. He is complaining of numbness and tingling in bilateral feet and hands and a burning sensation at night that keeps him awake. The burning sensation we will typically worsen at night but is there throughout the day along with the numbness and tingling which has been going on for several months. He recently started having the numbness and tingling in bilateral hands. [facility] Medical History (Updated 06/25/24 @ 13:13 by Deidra Escalante PA-C) Epilepsy Alcohol use disorder History of encephalopathy History of acute respiratory failure History of small bowel obstruction Chronic anemia Impaired glucose tolerance Personal history of nicotine dependence Surgical History No pertinent past surgical history Family History Father Cancer Mother Breast cancer Social History Household Members: Unknown / Unable to assess Housing: House Alcohol intake: former Patient Tobacco Use Status: Former Tobacco user Tobacco use type: Cigarette Years Smoked: (onset 23yo, 1ppd x 35yrs, 30pyh - quit 02/26/24) e-Cigarette/Vaping Use: Never Used Second Hand Smoke Exposure: Yes service: No Current occupational status: employed Current occupational exposures/hazards: No Cognitive needs: No Hearing needs: No Vision needs: No Questionnaire PHQ-9 Over the last 2 weeks, how often have you been bothered by any of the following problems? 1. Little interest or pleasure in doing things: not at all 2. Feeling down, depressed, or hopeless: not at all 3. Trouble falling or staying asleep, or sleeping too much: not at all 4. Feeling tired or having little energy: not at all 5. Poor appetite or overeating: not at all 6. Feeling bad about yourself - or that you are a failure or have let yourself or your family down: not at all 7. Trouble concentrating on things, such as reading the newspaper or watching television: not at all 8. Moving or speaking so slowly that other people could have noticed. Or the opposite - being so fidgety or restless that you have been moving around a lot more than usual: not at all 9. Thoughts that you would be better off or of hurting yourself in some way: not at all Total score: 0 Source: Developed by Drs. Tobi Glover, Shakira Christopher, Domingo Hernandez and colleagues, with an educational anastasia from [employer]. Thrive Questionnaire Date Thrive assessed: 06/25/24 I am a: Patient What is your living situation today?: I have a steady place to live Within the past 12 months, did the food you bought not last and you didn't have the money to get more?: Sometimes True Within the past 12 months, did you worry whether your food would run out before you got money to buy more?: Sometimes True Do you have trouble paying for medicines?: No Do you have trouble getting transportation to medical appointments?: No Do you have trouble paying your heating and electricity bill?: Yes Do you have trouble taking care of your child, family member or friend?: No Do you have trouble with day-to-day activities such as bathing, preparing meals, shopping, managing finances, etc.?: Yes Are you currently unemployed and looking for a job?: No Are you interested in more education?: No Please select the resources that you would like help with: None THRIVE Score: 3 AUDIT C Alcohol Use Questionnaire (AUDIT-C) 1. How often do you have a drink containing alcohol?: Never 2. How many drinks containing alcohol do you have on a typical day when you are drinking?: 1 or 2 3. How often do you have six or more drinks on one occasion?: Never Total Score: 0 MADDISON-7 AMB Questionnaire MADDISON-7 Date MADDISON - 7 assessed: 06/25/24 Feeling nervous, anxious, or on edge: 1 = Several days Not being able to stop or control worryin = Several days Worrying too much about different things: 1 = Several days Trouble relaxin = Several days Being so restless that it is hard to sit still: 0 = Not at all Becoming easily annoyed or irritable: 1 = Several days Feeling afraid as if something awful might happen: 1 = Several days Total MADDISON-7 score (0-4 normal; 5-9 mild; 10-14 moderate; 15-21 severe): 6 Source: Developed by Drs. Tobi Glover, Shakira Christopher, Domingo Hernandez and colleagues, with an educational anastasia from [employer]. Review of Systems Const Denies body aches, Denies fatigue, Denies fever(s), Denies frequent falls, Denies headache(s) and Denies weakness Eyes Reports no additional complaints and Denies change in vision ENT Denies dizziness and Denies headache(s) Card Denies chest pain, Denies syncope, Denies irregular heart rhythm, Denies leg edema, Denies lightheadedness and Denies dyspnea Resp Denies cough and Denies dyspnea GI Denies abdominal pain, Denies nausea and Denies vomiting Reports no additional complaints Musc Denies back pain and Denies myalgias Skin/Breast Reports system reviewed and no additional complaints, except as documented Neuro Denies dizziness, Denies syncope, Denies frequent falls, Denies headache(s) and Denies weakness Psych Reports no additional complaints Endo Denies fatigue Physical exam (Primary Care) Vital Signs: Last Vital Signs Temp 97.3 F 06/25/24 10:57 Pulse 88 06/25/24 10:57 BP 140/66 H 06/25/24 10:57 Pulse Ox 98 06/25/24 10:57 Oxygen Delivery Method Room Air 06/25/24 10:57 BMI result Body Mass Index 33.1 Tobacco/Smoking Status: Tobacco use Status Tobacco use date assessed 06/25/24 06/25/24 11:11 Patient Tobacco Use Status Former Tobacco user 06/25/24 11:11 Tobacco use type Cigarette 06/25/24 11:11 e-Cigarette/Vaping Use Never Used 06/25/24 11:11 PHQ-9: PHQ-9 Score PHQ-9: Total score 0 06/25/24 11:11 Thrive Assessment: Date of Thrive Assessment Date Thrive assessed 06/25/24 06/25/24 11:11 Const General: cooperative, healthy appearing, comfortable and no acute distress Orientation/consciousness: patient oriented x3 HENMT Head: Yes normocephalic Ears: hearing grossly normal bilaterally General nose exam: Normal external nose present Eyes General: appearance normal, both eyes and all related structures Conjunctivae: conjunctivae normal Neck Neck: Yes full ROM and Yes no lymphadenopathy Resp Effort & Inspection: normal respiratory effort Auscultation: clear to auscultation bilaterally, no crackles, no rales, no rhonchi and no wheezes Cardio Rate: regular rate Rhythm: regular rhythm Skin General skin exam: no rashes or lesions noted Neuro General: patient oriented x3 Gait exam (Neuro): Normal gait present Extrem General: Yes normal to inspection, Yes full ROM and No edema Psych Affect: normal affect Attitude: cooperative Insight: Good insight present (Psych) Judgement: Good judgement present (Psych) Coding Level of Care Code Est Pt Level 4 (33352) Diagnoses Alcohol use disorder F10.90 Chronic anemia D64.9 Personal history of nicotine dependence Z87.891 Type 2 diabetes mellitus with diabetic neuropathy, without long-term current use of insulin E11.40 Diabetes mellitus type: type 2 Diabetes mellitus detention insulin use: without detention use Diabetes mellitus complication status: with neurologic complications Diabetes mellitus complication detail: with unspecified neuropathy Elevated blood pressure reading without diagnosis of hypertension R03.0 Neuropathy G62.9 Assessment & Plan Assessment & Plan (1) Alcohol use disorder: Code(s): F10.90 - Alcohol use, unspecified, uncomplicated Category: Medical Plan: Currently [facility] with [facility] denies any cravings at this time has not had any alcohol in several months. (2) Chronic anemia: Code(s): D64.9 - Anemia, unspecified Category: Medical Plan: Resolves at this time. Continue to monitor blood work (3) Personal history of nicotine dependence: Comment: (former smoker - onset 23yo, 1ppd x 35yrs, 30pyh - quit 02/26/24) Code(s): Z87.891 - Personal history of nicotine dependence Category: Medical Plan: Recently completed lung cancer screening advised to follow up yearly. 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 Although fruits are generally healthy they should be eaten in moderation as they are still high in sugar. Hemoglobin A1c goal of less than 7%. Patient has new diagnosis of diabetes last A1c 9.9%. He is declining any kind of injection both insulin and GLP 1 injections at this time would like to try oral medication and dietary modification. States he does have a poor diet and can make several adjustments to lower the A1c. We will start on Farxiga at this time and follow up at next visit. Discussed with patient extensively about red flag symptoms and when to present for re-evaluation and patient was given diabetic educational materials. Referral also placed to optometry and Podiatry (5) Elevated blood pressure reading without diagnosis of hypertension: Code(s): R03.0 - Elevated blood-pressure reading, without diagnosis of hypertension Category: Medical Plan: Blood pressure mildly elevated in the office today advised patient to take blood pressure at and reach out to the office if blood pressures are persistently over 140/90. Bring log to next visit. (6) Neuropathy: Code(s): G62.9 - Polyneuropathy, unspecified Category: Medical Plan: Patient complaining of burning sensation in bilateral feet along with numbness and tingling. Presentation most consistent with diabetic neuropathy. We will trial gabapentin 100 mg nightly for symptom management and follow up in 1 month. Plan This note was constructed using voice recognition software. While every effort has been made to ensure accuracy and guest room inspector, still areas may have been included sometimes these areas may affect the content or meeting of the given symptoms. Total time spent caring for the patient today was 30 minutes. This includes time spent before the visit reviewing the chart, time spent during the visit, and time spent after the visit and documentation. Orders: Referrals Podiatry Referral E11.9 - Type 2 diabetes mellitus without complications Medications: New dapagliflozin propanediol (Farxiga) 5 mg PO DAILY 90 tabs 2RF gabapentin 100 mg PO BEDTIME 90 caps 1RF blood pressure test kit-large (CareTouch Blood Pressure Monitor kit) As directed 1 ea 0RF R03.0 - Elevated blood-pressure reading, without diagnosis of hypertension
[2024-06-25 10:57] VITALS: BP 140/66; PULSE 88; TEMP 36.3; O2SAT 98; BMI 33.1
--- OUTSIDE RECORDS SUMMARY | 2024-06-25 13:04 | XMS_ITS | Encounter Summary ---
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/[facility] Report Medical Records [address] [place] [address] Abstract, Provider Social History Tobacco Use Types Packs/Day Years Used Date Smoking Tobacco: Former Comments:5 cigs per day Alcohol Use Standard Drinks/Week Comments Yes 0 (1 standard drink = 0.6 oz pur e alcohol) soc Sex Assigned at Date Recorded Not on file documented as of this encounter Plan of Treatment Not on file documented as of this encounter Visit Diagnoses Not on filedocumented in this encounter Care Teams Duralumin Metalworker Relationship Specialty Start Date End Date Jeramy Rojas MD [address] [place] [address] PCP - General 09/19/1997 08/14/16 Shaquille Nettles DO [address] [place] [address] PCP - General Internal Medicine 08/15/16 documented as of this encounter
--- OUTSIDE RECORDS SUMMARY | 2024-06-25 13:04 | XMS_ITS | Encounter Summary ---
Author Organization [facility] Address [address] [place] [address] Care Team Providers Care Assembler Production Line Name Role Phone Jeramy Rojas MD Primary Care Provider Shaquille Nettles DO Primary Care Provider Unavaila ble Encounter Details Date Type Department Care Team Description 10/15/2015 FIELD SERVICES DIRECTOR/[facility] Report Medical Records [address] [place] [address] Abstract, Provider Social History Tobacco Use Types [...] on filedocumented in this encounter Care Teams Assembler Production Line Relationship Specialty Start Date End Date Jeramy Rojas MD [address] [place] [address] PCP - General 09/19/1997 08/14/16 Shaquille Nettles DO [address] [place] [address] PCP - General Internal Medicine 08/15/16 documented as of this encounter
== END 2024-06-25 12:00 | disposition home or self-care (01) ==
DX: F10.90 Alcohol use, unspecified, uncomplicated (principal); D64.9 Anemia, unspecified; Z87.891 Personal history of nicotine dependence; E11.40 Type 2 diabetes mellitus with diabetic neuropathy, unspecified; R03.0 Elevated blood-pressure reading, without diagnosis of hypertension; G62.9 Polyneuropathy, unspecified

== ENCOUNTER → 2024-06-25 10:54 | Outpatient (BNVA) | payer OTHER, SELFPAY | DX: F10.90 Alcohol use, unspecified, uncomplicated (principal); D64.9 Anemia, unspecified; E11.40 Type 2 diabetes mellitus with diabetic neuropathy, unspecified; R03.0 Elevated blood-pressure reading, without diagnosis of hypertension; G62.9 Polyneuropathy, unspecified; Z87.891 Personal history of nicotine dependence | CPT/HCPCS: 99212 ==

== ENCOUNTER 2024-07-24 14:06 | Outpatient (AMB) | payer OTHER, SELFPAY ==
--- NOTE | 2024-07-24 14:15 | MHC.AM.SUB ---
Intake Visit Reasons: MAT Office Allergies No Known Allergies Allergy (Verified 06/25/24 10:57) HPI HPI MAT Office: Details: Patient presents for follow up No ARI at this time Denies any alcohol use, and has had significant stressors since last visit (brother passed) Denies any cravings Strong family supports Review of Systems Const Reports as per HPI and Reports no additional complaints Physical Exam Const General: cooperative, healthy appearing and well groomed Nutritional Appearance: average body habitus Orientation/consciousness: patient oriented x3 Limitations: no limitations Neuro General: patient oriented x3 Psych Affect: normal affect Attitude: cooperative Thought process: Normal thought process present Thought content: Normal thought content present Insight: Good insight present (Psych) Judgement: Good judgement present (Psych) [facility] Medical History (Updated 06/25/24 @ 13:13 by Deidra Escalante PA-C) Epilepsy Alcohol use disorder History of encephalopathy History of acute respiratory failure History of small bowel obstruction Chronic anemia Impaired glucose tolerance Personal history of nicotine dependence Surgical History No pertinent past surgical history Family History Father Cancer Mother Breast cancer Social History Household Members: Unknown / Unable to assess Housing: House Alcohol intake: former Patient Tobacco Use Status: Former Tobacco user Tobacco use type: Cigarette Years Smoked: (onset 23yo, 1ppd x 35yrs, 30pyh - quit 02/26/24) e-Cigarette/Vaping Use: Never Used Second Hand Smoke Exposure: Yes service: No Current occupational status: employed Current occupational exposures/hazards: No Cognitive needs: No Hearing needs: No Vision needs: No Assessment & Plan Assessment & Plan (1) Alcohol use disorder: Code(s): F10.90 - Alcohol use, unspecified, uncomplicated Category: Medical Plan: relapse prevention discussion follow up 2 months
== END 2024-07-24 14:44 | disposition home or self-care (01) ==
PROVIDERS: Visit Provider Nurse Practitioner Psychiatric/Mental Health
DX: F10.90 Alcohol use, unspecified, uncomplicated (principal)
CPT/HCPCS: 99212

== ENCOUNTER → 2024-07-24 14:06 | Outpatient (BNVA) | payer OTHER, SELFPAY | PROVIDERS: Visit Provider Nurse Practitioner Psychiatric/Mental Health | DX: F10.10 Alcohol abuse, uncomplicated (principal) | CPT/HCPCS: 99212 ==

== ENCOUNTER 2024-09-23 10:55 | Outpatient (AMB) | payer OTHER, SELFPAY ==
--- NOTE | 2024-09-23 11:06 | MHC.PC.OV ---
Vital Signs 09/23/24 11:07 Height 5 ft 8 in Weight 233 lb BMI 35.4 BP 110/68 Blood Pressure Location Lt brachial Position Sitting Pulse 91 Pulse Source Pulse Oximeter Temp 97.5 F Temp Source Temporal Artery Scan Pulse Oximetry (%) 96 Oxygen Delivery Method Room Air Intake Visit Reasons: f/u DM Intake Note: Patient is here to follow up on DM. Steel Sash Erector Required: No Test Development Engineer: Not Required per policy Accompanied by: Self / Same As Patient Allergies No Known Allergies Allergy (Verified 09/23/24 11:07) Medication List - Last Reconciled 09/23/24 by Deidra Escalante PA-C blood pressure test kit-large ([employer] Blood Pressure Monitor kit) As directed dapagliflozin propanediol (Farxiga) 5 mg PO DAILY gabapentin 100 mg PO BEDTIME omeprazole magnesium (Prilosec OTC) 20 mg PO DAILY Tobacco use date assessed: 09/23/24 Dental Screening Dental Screen Date: 06/25/24 HPI f/u DM HPI Details 58-year-old male with past medical history of chronic anemia, diabetes mellitus and alcohol use disorder last seen 05/2024 coming in for follow up.?In review of the notes, patient [facility] last seen 07/2024 for alcohol use disorder. Presenting with diabetic peripheral neuropathy and associated foot pain. He reports significant pain primarily in the feet, limiting work activity, with symptoms worsening after prolonged standing and slightly alleviated by movement. Current gabapentin therapy at 100 mg daily provides inadequate relief, prompting consideration of a dose increase. The patient occasionally uses lidocaine topically for symptomatic relief. There is a chronic presence of venous insufficiency symptoms diagnosed by podiatry. He was referred to vascular by his gasoline tester and has appt next week. Over the past months, the patient has experienced weight gain attributed in part to reduced activity levels due to pain, despite reportedly stable dietary habits. Type 2 diabetes management shows a significant decline in hemoglobin A1c to 6.8% due to lifestyle modifications and Farxiga therapy. [facility] Medical History Epilepsy Alcohol use disorder History of encephalopathy History of acute respiratory failure History of small bowel obstruction Chronic anemia Impaired glucose tolerance Personal history of nicotine dependence Surgical History No pertinent past surgical history Family History Father Cancer Mother Breast cancer Social History Household Members: Unknown / Unable to assess Housing: House Alcohol intake: former Patient Tobacco Use Status: Former Tobacco user Tobacco use type: Cigarette Years Smoked: (onset 23yo, 1ppd x 35yrs, 30pyh - quit 02/26/24) e-Cigarette/Vaping Use: Never Used Second Hand Smoke Exposure: Yes service: No Current occupational status: employed Current occupational exposures/hazards: No Cognitive needs: No Hearing needs: No Vision needs: No Questionnaire Thrive Questionnaire Date Thrive assessed: 06/20/24 I am a: Patient What is your living situation today?: I have a steady place to live Within the past 12 months, did the food you bought not last and you didn't have the money to get more?: Sometimes True Within the past 12 months, did you worry whether your food would run out before you got money to buy more?: Sometimes True Do you have trouble paying for medicines?: No Do you have trouble getting transportation to medical appointments?: No Do you have trouble paying your heating and electricity bill?: Yes Do you have trouble taking care of your child, family member or friend?: No Do you have trouble with day-to-day activities such as bathing, preparing meals, shopping, managing finances, etc.?: Yes Are you currently unemployed and looking for a job?: No Are you interested in more education?: No Please select the resources that you would like help with: None Currently or been in a relationship where the following occur: No concerns reported THRIVE Score: 3 MADDISON-7 AMB Questionnaire MADDISON-7 Date MADDISON - 7 assessed: 06/25/24 Source: Developed by Drs. Tobi Glover, Shakira Christopher, Domingo Hernandez and colleagues, with an educational anastasia from [employer]. Review of Systems Const Denies body aches, Denies chills, Denies fever(s) and Denies poor appetite Eyes Reports no additional complaints ENT Denies dizziness Card Denies chest pain and Denies dyspnea Resp Denies dyspnea GI Denies abdominal pain, Denies nausea and Denies vomiting Reports no additional complaints Musc Reports no additional complaints and Denies abnormal gait Skin/Breast Reports system reviewed and no additional complaints, except as documented Neuro Denies abnormal gait and Denies dizziness Psych Reports no additional complaints Physical exam (Primary Care) Vital Signs: Last Vital Signs Temp 97.5 F 09/23/24 11:07 Pulse 91 09/23/24 11:07 BP 110/68 09/23/24 11:07 Pulse Ox 96 09/23/24 11:07 Oxygen Delivery Method Room Air 09/23/24 11:07 BMI result Body Mass Index 35.4 Tobacco/Smoking Status: Tobacco use Status Tobacco use date assessed 09/23/24 09/23/24 11:12 Patient Tobacco Use Status Former Tobacco user 09/23/24 11:06 Tobacco use type Cigarette 09/23/24 11:06 e-Cigarette/Vaping Use Never Used 09/23/24 11:06 Thrive Assessment: Date of Thrive Assessment Date Thrive assessed 06/20/24 09/23/24 11:06 Currently or been in a relationship where the following occur: No concerns reported Const General: cooperative, healthy appearing, comfortable and no acute distress Orientation/consciousness: patient oriented x3 HENMT Head: Yes normocephalic Ears: hearing grossly normal bilaterally General nose exam: Normal external nose present Eyes General: appearance normal, both eyes and all related structures Conjunctivae: conjunctivae normal Neck Neck: Yes full ROM and Yes no lymphadenopathy Resp Effort & Inspection: normal respiratory effort Auscultation: clear to auscultation bilaterally, no crackles, no rales, no rhonchi and no wheezes Cardio Rate: regular rate Rhythm: regular rhythm Skin General skin exam: no rashes or lesions noted Neuro General: patient oriented x3 Gait exam (Neuro): Normal gait present Extrem General: Yes normal to inspection, Yes full ROM and No edema Psych Affect: normal affect Attitude: cooperative Insight: Good insight present (Psych) Judgement: Good judgement present (Psych) Results AMB Hemoglobin A1c AMB Hemoglobin A1c 6.8 % Last Edit by GRAYSON Nix on 09/23/24 11:19 Results Reviewed Results Reviewed: Laboratory Last Values Hgb A1c (Clinic) 6.8 % (4.0-6.0) H 09/23/24 11:07 Coding Level of Care Code Est Pt Level 3 (65507) Diagnoses Alcohol use disorder F10.90 Type 2 diabetes mellitus with diabetic neuropathy, without long-term current use of insulin E11.40 Diabetes mellitus complication detail: with unspecified neuropathy Diabetes mellitus complication status: with neurologic complications Diabetes mellitus terminal gauger insulin use: without terminal gauger use Diabetes mellitus type: type 2 Elevated blood pressure reading without diagnosis of hypertension R03.0 Neuropathy G62.9 Venous insufficiency I87.2 Obesity (BMI 30.0-34.9) E66.811 GERD (gastroesophageal reflux disease) K21.9 Assessment & Plan Assessment & Plan (1) Alcohol use disorder: Code(s): F10.90 - Alcohol use, unspecified, uncomplicated Category: Medical Plan: Currently following with [facility] denies any cravings at this time has not had any alcohol in several months. (2) Diabetes mellitus: Code(s): E11.9 - Type 2 diabetes mellitus without complications Category: Medical Qualifiers: Diabetes mellitus complication detail: with unspecified neuropathy Diabetes mellitus complication status: with neurologic complications Diabetes mellitus alf insulin use: without alf use Diabetes mellitus type: type 2 Qualified Code(s): E11.40 - Type 2 diabetes mellitus with diabetic neuropathy, unspecified Plan: Decrease the amount of carbohydrates such as pasta, bread, rice, and potatoes and limit the amount of sweets. Although fruits are generally healthy they should be eaten in moderation as they are still high in sugar. Hemoglobin A1c goal of less than 7%. A1c in the clinic today 6.8%, no change in medication at this time. Continue lifestyle and dietary modification. (3) Elevated blood pressure reading without diagnosis of hypertension: Code(s): R03.0 - Elevated blood-pressure reading, without diagnosis of hypertension Category: Medical Plan: Reviewed blood pressure log in the office today and all values WNL. Plan to continue to monitor blood pressures, Avoid salt intake and encourage healthy diet and regular exercise. (4) Neuropathy: Code(s): G62.9 - Polyneuropathy, unspecified Category: Medical Plan: Patient was started on gabapentin 100 mg at last visit does not feel his pain is completely resolved. Increase to 200mg at this time. Patient was seen by Podiatry and diagnosed with venous insufficiency as well and has a appointment with vascular surgery next week. Patient is also interested in seeing pain management at this time and referral was placed. (5) Venous insufficiency: Code(s): I87.2 - Venous insufficiency (chronic) (peripheral) Category: Medical Plan: Patient diagnosed with venous insufficiency by his gasoline tester and has a appointment with vascular surgery next week. Recommended use of compression stockings, leg elevation and exercise as tolerated. (6) Obesity (BMI 30.0-34.9): Code(s): E66.811 - Obesity, class 1 Category: Medical Plan: Healthy diet and regular exercise is encouraged. Noted weight gain since last visit likely due to decreased activity. Plan to continue to treat the foot pain and increase activity level. (7) GERD (gastroesophageal reflux disease): Code(s): K21.9 - Gastro-esophageal reflux disease without esophagitis Category: Medical Plan: Avoid trigger foods such as citrus, tomato products, soda, caffeine, spicy foods and other foods that may be irritating to your stomach. Avoid laying flat 3-4 hours after eating and elevate the head of the bed 30 degrees to prevent acid from moving into the esophagus. Symptoms are pretty well managed. Patient has been using omeprazole as needed. I discussed with the patient that is not appropriate use this medication plan to use famotidine as needed. Plan This note was constructed using voice recognition software. While every effort has been made to ensure accuracy and director of conservation, still areas may have been included sometimes these areas may affect the content or meeting of the given symptoms. Total time spent caring for the patient today was 20 minutes. This includes time spent before the visit reviewing the chart, time spent during the visit, and time spent after the visit and documentation. Patient was informed and verbally consented to the use of an ambient scribe for clinic note documentation during this visit. Orders: Orders AMB Hemoglobin A1c Today E11.40 - Type 2 diabetes mellitus with diabetic neuropathy, unspecified Referrals Pain Management Referral G62.9 - Polyneuropathy, unspecified, M79.671 - Pain in right foot, M79.672 - Pain in left foot Medications: New famotidine 20 mg PO DAILY 30 tabs 0RF Changed From gabapentin 100 mg PO BEDTIME 90 caps 1RF To gabapentin 200 mg (2 x 100 mg) PO BEDTIME 180 caps 1RF
[2024-09-23 11:07] VITALS: BP 110/68; PULSE 91; TEMP 36.4; O2SAT 96; BMI 35.4
--- OUTSIDE RECORDS SUMMARY | 2024-09-23 12:41 | XMS_ITS | Clinical Summary ---
Author Organization [facility] Address [address] [place] [address] Care Team Providers Care Superintendent Plant Name Role Phone Shaquille Nettles DO Primary [...] 05/08/2019 Active Active Problems Problem Noted Date '[id number]-[id number]' infant with signs of f etal malnutrition [...] 2016 SHINGLES VACCINE (1 of 2) 2016 BMI CHECK/ADVISE 05/28/2024 DEPRESSION SCREENING/FOLLOWUP 05/28/2024, 09/02/2004, 09/01/2004, Additional history exists SOCIAL NEEDS SCREENING 05/28/2024 INFLUENZA (Season Ended) 2025 PNEUMOCOCCAL VACCINE FOR HIG H RISK PATIENTS (#1) 12/25/2031 Care Teams Superintendent Plant Relationship Specialty Start Date End Date Shaquille Nettles DO PCP - General Internal Medicine 08/15/16
== END 2024-09-23 11:48 | disposition home or self-care (01) ==
LOC: HO.HMCH 10:56
DX: E11.40 Type 2 diabetes mellitus with diabetic neuropathy, unspecified (principal); F10.90 Alcohol use, unspecified, uncomplicated; E66.811 Obesity, class 1; Z68.35 Body mass index [BMI] 35.0-35.9, adult; R03.0 Elevated blood-pressure reading, without diagnosis of hypertension; G62.9 Polyneuropathy, unspecified; I87.2 Venous insufficiency (chronic) (peripheral); K21.9 Gastro-esophageal reflux disease without esophagitis

== ENCOUNTER → 2024-09-23 10:55 | Outpatient (BNVA) | payer OTHER, SELFPAY | DX: E11.40 Type 2 diabetes mellitus with diabetic neuropathy, unspecified (principal); F10.90 Alcohol use, unspecified, uncomplicated; R03.0 Elevated blood-pressure reading, without diagnosis of hypertension; I87.2 Venous insufficiency (chronic) (peripheral); E66.811 Obesity, class 1; Z68.35 Body mass index [BMI] 35.0-35.9, adult; K21.9 Gastro-esophageal reflux disease without esophagitis | CPT/HCPCS: 83036; 99212 ==

== ENCOUNTER 2024-10-13 10:52 | Outpatient (AMB) | payer OTHER, SELFPAY ==
--- NOTE | 2024-10-13 10:54 | MHC.OFFVIS ---
Vital Signs 10/13/24 10:56 Height 5 ft 8 in Weight 232 lb BMI 35.3 BP 154/81 H Blood Pressure Location Lt brachial Position Sitting Respiration 15 Pulse 80 Pulse Source Pulse Oximeter Pulse Oximetry (%) 97 Oxygen Delivery Method Room Air Intake Visit Reasons: Pain in right/left foot Claim Investigator Required: No Allergies No Known Allergies Allergy (Verified 10/13/24 10:57) Medication List - Last Reconciled 10/13/24 by Kristen Schaefer LPN blood pressure test kit-large ([employer] Blood Pressure Monitor kit) As directed dapagliflozin propanediol (Farxiga) 5 mg PO DAILY famotidine 20 mg PO DAILY gabapentin 200 mg (2 x 100 mg) PO BEDTIME HPI HPI Pain in right/left foot: Details: History of Present Illness The patient is a 58-year-old male presenting with peripheral neuropathic pain. The onset of foot pain occurred several years ago, with notable worsening over the past year. Diagnosed with Type 2 Diabetes Mellitus five months ago, his initial fasting glucose was markedly elevated at 380 mg/dL, and HbA1c was 9.9%. He reports improvement in his glycemic control, now at an HbA1c of 6.8% with pharmacological management including 5 mg of Farxiga. Previously, the patient engaged in chronic alcohol consumption, admitting to drinking a bottle of wine daily until hospitalized in February when he ceased alcohol intake. This longstanding consumption may contribute to his current neuropathy symptoms. He describes his foot pain as burning, rated 7 to 8 out of 10, particularly disruptive at night. Work capacity and mobility are affected due to exacerbated pain during walking and prolonged standing. Currently, he uses gabapentin, which at 200 mg provides limited relief. Venous insufficiency is also a concern, as lifestyle factors such as prolonged standing in his profession may exacerbate venous reflux. He utilizes compression stockings and foot elevation as non-pharmacological measures while awaiting further vascular evaluation and specialty footwear. Pain Description - Onset and Timing: Gradual onset several years ago, worsened in the past year. - Quality and Character: Described as burning, sandoval to walking on broken glass, and with pins and needles. - Primary Location: Feet, with associated venous insufficiency concerns. - Interfering Factors: Interferes with sleep, work, night restroom trips, and requires holding onto furniture. - Exacerbating Factors: Prolonged standing and walking. - Alleviating Factors: Use of compression stockings, elevation of feet, partial relief with gabapentin. Physical Exam - Musculoskeletal- No broken skin or severe calluses; right foot with prior nail injury healing (note from patient discussion). - Neurological- Loss of sensation with needles during office test indicating neuropathy. - Dermatological- Skin integrity sufficient for future capsaicin treatment considered. Results - Labs: Elevated initial fasting glucose of 380 mg/dL, initial HbA1c of 9.9%, reduced to 6.8% with treatment. - Tests and Diagnostics: Pending venous ultrasound for reflux assessment. Pain Management - Affect: Pain impacts mood and sleep, with psychological distress from reduced work hours and capacity. - Analgesia: Currently on 200 mg of gabapentin, considering trial of pregabalin. - Adverse Effects: None reported directly from medications, though perceived limited pain relief from gabapentin. - Activities of Daily Living: Reduced due to pain; affects work hours and night mobility. - Aberrant Drug-Related Behaviors: No misuse or exceeding prescribed medication dosage reported. [facility] Medical History Epilepsy Alcohol use disorder History of encephalopathy History of acute respiratory failure History of small bowel obstruction Chronic anemia Impaired glucose tolerance Personal history of nicotine dependence Surgical History No pertinent past surgical history Family History Father Cancer Mother Breast cancer Social History Household Members: Unknown / Unable to assess Housing: House Alcohol intake: former Patient Tobacco Use Status: Former Tobacco user Tobacco use type: Cigarette Years Smoked: (onset 23yo, 1ppd x 35yrs, 30pyh - quit 02/26/24) e-Cigarette/Vaping Use: Never Used Second Hand Smoke Exposure: Yes service: No Current occupational status: employed Current occupational exposures/hazards: No Cognitive needs: No Hearing needs: No Vision needs: No Physical Exam Vital Signs: Last Vital Signs Pulse 80 10/13/24 10:56 Resp 15 10/13/24 10:56 BP 154/81 H 10/13/24 10:56 Pulse Ox 97 10/13/24 10:56 Oxygen Delivery Method Room Air 05/19/25 10:56 BMI result Body Mass Index 35.3 Assessment & Plan Assessment & Plan (1) Venous insufficiency: Code(s): I87.2 - Venous insufficiency (chronic) (peripheral) Category: Medical (2) Diabetic neuropathy: Code(s): E11.40 - Type 2 diabetes mellitus with diabetic neuropathy, unspecified Category: Medical (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 - Switch from gabapentin to pregabalin 75 mg and monitor response. Consider duloxetine in the future. - Schedule venous ultrasound to assess reflux. - Consider capsaicin patches for neuropathy if no relief from oral agents alone. - Evaluate pain management in one month, with possible adjustment. - Reinforce compression stocking use and alcohol abstinence. - Discuss further interventions if conservative measures are ineffective. Patient was informed and verbally consented to the use of an ambient scribe for clinic note documentation during this visit. Discussion Notes I discussed with the patient that his peripheral neuropathy is likely a combination of diabetic and alcohol-induced causes. We reviewed the transition from gabapentin to pregabalin to address current inadequate pain control. I explained the option of a capsaicin patch application for neuropathic pain relief, pending his foot condition. The benefits, risks, and the expected time to notice improvement with pregabalin were communicated. We scheduled a venous ultrasound to assess for venous insufficiency, as this may contribute to his pain. I emphasized the importance of glycemic control, avoiding alcohol, and using compression stockings properly. Follow-up was scheduled in a month to reassess pain management and efficacy of interventions. Patient Instructions - Take pregabalin as directed, starting tonight. - Use compression stockings before getting out of bed. - Elevate feet for pain relief during the day. - Avoid alcohol to help manage neuropathy and diabetes. - Continue monitoring blood sugar levels and report severe changes. - Follow up for venous ultrasound and re-evaluation of pain management in a month. - Call or seek immediate care if you experience severe side effects from medications or worsening symptoms. Orders: Orders US venous insuf bilat 10/13/24 I87.2 - Venous insufficiency (chronic) (peripheral) Medications: New pregabalin 75 mg PO BEDTIME 30 caps 0RF R03.0 - Elevated blood-pressure reading, without diagnosis of hypertension Discontinued gabapentin Discontinued Reason: Duplicate 200 mg (2 x 100 mg) PO BEDTIME 180 caps 1RF Coding Level of Care Code New Pt Level 4 (21431) Diagnoses Venous insufficiency I87.2 Diabetic neuropathy E11.40 Alcoholic peripheral neuropathy G62.1
[2024-10-13 10:56] VITALS: BP 154/81; PULSE 80; RESP 15; O2SAT 97; BMI 35.3
--- OUTSIDE RECORDS SUMMARY | 2024-10-13 11:29 | XMS_ITS | Encounter Summary ---
Author Organization [facility] Address [address] [place] [address] Care Team Providers Care Casting Trucker Name Role Phone Jeramy Rojas MD Primary Care Provider Shaquille Nettles DO Primary Care Provider Unavaila ble Encounter Details Date Type Department Care Team Description 07/29/2014 B[facility] Report Medical Records [address] [place] [address] Abstract, Provider Social History Tobacco Use Types [...] on filedocumented in this encounter Care Teams Casting Trucker Relationship Specialty Start Date End Date Jeramy Rojas MD [address] [place] [address] PCP - General 09/19/1997 08/14/16 Shaquille Nettles DO [address] [place] [address] PCP - General Internal Medicine 08/15/16 documented as of this encounter
== END 2024-10-13 11:48 | disposition home or self-care (01) ==
LOC: HO.PMC 10:53
PROVIDERS: Visit Provider Internal Medicine
DX: I87.2 Venous insufficiency (chronic) (peripheral) (principal); E11.40 Type 2 diabetes mellitus with diabetic neuropathy, unspecified; G62.1 Alcoholic polyneuropathy
CPT/HCPCS: 99204

== ENCOUNTER → 2024-10-13 10:52 | Outpatient (BNVA) | payer OTHER, SELFPAY | PROVIDERS: Visit Provider Internal Medicine | DX: I87.2 Venous insufficiency (chronic) (peripheral) (principal); E11.40 Type 2 diabetes mellitus with diabetic neuropathy, unspecified; G62.1 Alcoholic polyneuropathy; R03.0 Elevated blood-pressure reading, without diagnosis of hypertension | CPT/HCPCS: 99202 ==

== ENCOUNTER 2024-11-18 15:20 | Emergency (ER) | payer OTHER, SELFPAY ==
--- NOTE | ~2024-11-18 | XR_ITS ---
EXAMINATION: XR ANKLE, LEFT CLINICAL INFORMATION: twisted ankle today, lateral malleolus pain COMPARISON: None available. TECHNIQUE: AP, lateral, and mortise views of the left ankle. FINDINGS: Faint curvilinear density is visible distal to the lateral malleolar tip. There is lateral greater than medial soft tissue swelling. Ankle mortise is congruent. There is no widening of the syndesmosis. There is a plantar calcaneal spur. There is a very small Achilles tendon spur. There is fat stranding of the pre-Achilles fat pad. XR/XR ankle LT min 3V IMPRESSION: Avulsion fracture involving the distal fibular tip. Soft tissue edema/ecchymosis. Electronically signed by: Joseph Gramajo MD 11/18/2024 03:56 PM EDT
[2024-11-18 15:23] VITALS: BP 165/88; PULSE 85; RESP 16; TEMP 36.7; O2SAT 97; BMI 34.0
--- NOTE | 2024-11-18 15:24 | ED_ITS ---
HPI - Extremity Injury (Lower) General Chief Complaint: Extremity Injury, Lower Stated Complaint: left ankle fall Time Seen by Provider: 11/18/24 18:43 Source: patient Mode of arrival: wheelchair Limitations: physical limitation (Normally able to ambulate) History of Present Illness ED Provider: Gisselle Madden PA-C HPI Narrative: I did a rapid medical exam on the patient taking a thorough history however as his imaging resulted while waiting for a room and then took him on as my primary patient. There is no new history to report see course. This is not work related. MD complaint: ankle injury Type of Injury: inversion Place: home Severity: mild Severity scale (1-10): 3 Relieving factors: cold therapy Exacerbating factors: weight bearing Related Data Previous Rx's ?Medication ?Instructions ?Recorded blood pressure test kit-large #1 ea 06/25/24 ([employer] Blood Pressure Monitor kit) dapagliflozin propanediol 5 mg 5 mg PO DAILY #90 tabs 06/25/24 tablet (Farxiga) famotidine 20 mg tablet 20 mg PO DAILY #90 tabs 12/19 pregabalin 75 mg capsule 75 mg PO BEDTIME #30 caps Allergies Allergy/AdvReac Type Severity Reaction Status Date / Time No Known Allergies Allergy Verified 11/18/24 15:26 Review of Systems Review of Systems: Yes all other systems are reviewed and are negative PMFSH Past Medical History Attestation statement: The following information was validated with the patient. Source: old records reviewed and nursing notes reviewed Medical History Epilepsy Alcohol use disorder History of encephalopathy History of acute respiratory failure History of small bowel obstruction Chronic anemia Impaired glucose tolerance Personal history of nicotine dependence Surgical History No pertinent past surgical history Family History Family History Father Cancer Mother Breast cancer Social History Social History Household Members: Unknown / Unable to assess Housing: House Alcohol intake: former Patient Tobacco Use Status: Former Tobacco user Tobacco use type: Cigarette Years Smoked: (onset 23yo, 1ppd x 35yrs, 30pyh - quit 02/26/24) e-Cigarette/Vaping Use: Never Used Second Hand Smoke Exposure: Yes Advance Directives Date on File: 04/08/24 service: No Current occupational status: employed Current occupational exposures/hazards: No Cognitive needs: No Hearing needs: No Vision needs: No Physical Exam Vital Signs: Vital Signs: Last Vital Signs Temp 98.0 F 11/18/24 20:12 Pulse 85 11/18/24 20:12 Resp 16 11/18/24 20:12 BP 165/88 H 11/18/24 20:12 Pulse Ox 97 11/18/24 20:12 O2 Del Method Room Air 11/18/24 20:12 BMI result Body Mass Index 34.0 General: Appears in no acute distress, appears well nourished body habitus is obese, appears stated age. No septic or ill-appearing. Vitals reviewed normal, PMH/Social and Surgical hx reviewed including allergies and current medications. - reviewed for prior visits here and not read as it did not pertain to similar chief complaint. Head: Normocephalic, no obvious trauma or skin lesions noted. Eyes: EOMI ENMT: moist oral mucosa Neck: trachea midline Cardiovascular: peripheral perfusion normal, Regular heart rate Respiratory: no respiratory distress Abdomen: nondistended Extremities: warm and moving without difficulty other than his left lower extremity he has soft tissue swelling with tenderness to palpation of his left lateral malleolus pain with slight inversion. There is no base of the 5th tenderness. He does have slight ecchymosis but no obvious deformity. Negative ankle squeeze negative anterior drawer cap refills less 3 seconds distal pulses are 2+ DTRs are intact compartments are soft sensation is fully intact no pain with calf squeezing gait is antalgic favoring the left lower extremity. Psych: Cooperative Neuro: Alert and oriented. Course Course Course Narrative: RME: Gisselle Madden PA-C 11/18/2024: 327 pm will defer full ROS and PE to treating provider While patient was at home this morning trying to gather his chickens he accidentally tripped over 1 of the rolling his left ankle. He has pain in his LEs around the ankle. He has been icing it since 09:30 this morning. He points to his lateral malleolus where hurts him the most there is no pain radiating to his toes knee or calf. Denies any paresthesias or weakness but does hurt to bear weight. Denies any prior trauma to same ankle in the past this is not work related. Reevaluation(s) Time: 15:27 Medical Decision Making Medical Decision Making MDM Narrative: Patient presents to ED today for evaluation of left-sided ankle pain . EDELMIRA is inversion injury with trip. This is not work related. H and P as above. Patient is afebrile with stable vitals and well-appearing. ?History and physical as stated above. ?Patient is neurovascular intact in the affected extremity. ?X- rays were obtained to further evaluate. At this time no evidence of NVC to warrant further work up/ intervention or consult. They show an avulsion fracture of the left lateral malleolus. ?Patient?s left lower extremity ?was placed in a walking boot. Patient remained neurovascularly intact. ?Discussed icing it, elevating and alternating ibuprofen and Tylenol for discomfort. ?Discussed to follow-up with an ?orthopedic clinic, information given. Discussed symptomatic treatment with the patient. ?Discussed return precautions. ?Patient verbalized understanding of the above plan and is in agreement with the above plan. ?The patient was discharged home in stable condition with return precautions. Differential Diagnosis Differential Diagnoses: The differential diagnosis associated with the presentation includes Fracture, dislocation, neurovascular compromise, compartment syndrome Admission/Observation Consideration of admission/observation: Escalation of care including admission/observation considered Patient would have been admitted to the hospital had his work up had any findings where hospital admission was appropriate and his clinical presentation warranted hospital admission. Independent Interpretation I performed an independent interpretation of an: Plain X-Ray Interpretation: Fracture of lateral malleolus left side Radiology Impression Discussion of test interpretation with radiology: I have reviewed the radiologist's reading. Radiologist Impression: Same as preliminary read Tests considered The following testing was considered but not selected: Would have considered a CT of the ankle had there been high clinical concern for fracture an unremarkable x-ray of the ankle, Ángela a running concern for compartment syndrome would have checked pressures. Had there been no trauma calf pain would have considered dorsalis imaging for potential VTE Prescription Management I considered prescription management with: Pain Medication Chronic Conditions Patient?s care impacted by: Other (Obesity) Discharge Plan Discharge Clinical Impression: Left ankle sprain Avulsion fracture of lateral malleolus of left fibula Qualifiers: Encounter type: initial encounter Fracture type: closed Qualified Code(s): S82.62XA - Displaced fracture of lateral malleolus of left fibula, initial encounter for closed fracture Patient Disposition: Home, Self-Care Instructions: Ankle Fracture (ED) Additional Instructions: You were evaluated for an injury to left ankle You had x-rays done that show an acute fracture. You have a fracture of your left lower extremity. This is a nonweightbearing bone use the boot and crutches over the next few days and you may begin just but the boot after seeking consultation from Orthopedics. You can take it off to sleep and you can also take it off to shower chair at home and resting you can also take it off to elevate. Failure to follow up with the specialist may result in bones not healing correctly and loss of proper function of your left lower extremity. It is important to make and keep your appointment with the specialist.? In the meantime,? Use Motrin/Advil (ibuprofen) 400-600 mg every 6 to 8 hours? as needed for pain. In addition, you can use Tylenol (acetaminophen) 650 mg every 6 hrs as needed for pain.? Do not take more than 3000 mg in one day! Elevate the extremity as much as possible Return immediately or call your doctor for increased or uncontrolled pain, numbness, tingling, or weakness of the injured body part. Please see an orthopedist as soon as possible. Be sure to call today to schedule an appointment. Prescriptions: No Action famotidine 20 mg tablet 20 mg PO DAILY Qty: 90 0RF dapagliflozin propanediol [Farxiga] 5 mg tablet 5 mg PO DAILY Qty: 90 2RF (DME) blood pressure test kit-large [[employer] BP Monitor] Kit See Rx Instructions .Route Qty: 1 0RF Rx Instructions: As directed pregabalin 75 mg capsule 75 mg PO BEDTIME Qty: 30 0RF Referrals: [facility] [place] Orthopedic Surgeons [Provider Group] - 2 days Referral Note: avulsion fracture of fibula Stand Alone Forms: Work/School Release Interventions: ED Discharge Assessment Last Done: 11/18/24 20:12 Discharge Date/Time: 11/18/24 19:02 Print Language: Bangladeshi
[2024-11-18 20:12] VITALS: BP 165/88; PULSE 85; RESP 16; TEMP 36.7; O2SAT 97
== END 2024-11-18 19:02 | disposition home or self-care (01) ==
LOC: HO.ED 19:04
PROVIDERS: Emergency Provider Emergency Medicine
DX: S82.62XA Displaced fracture of lateral malleolus of left fibula, initial encounter for closed fracture (principal); S93.402A Sprain of unspecified ligament of left ankle, initial encounter; W17.2XXA Fall into hole, initial encounter; Y93.H3 Activity, building and construction; Y92.017 Garden or yard in single-family (private) house as the place of occurrence of the external cause; Y99.8 Other external cause status
CPT/HCPCS: 73610; 99283

== ENCOUNTER → 2024-11-18 15:26 | Outpatient (BNV) | payer OTHER, SELFPAY | PROVIDERS: Visit Provider Radiology Diagnostic Radiology | DX: S82.832A Other fracture of upper and lower end of left fibula, initial encounter for closed fracture (principal); R22.42 Localized swelling, mass and lump, left lower limb | CPT/HCPCS: 73610 ==

== ENCOUNTER 2024-12-01 13:08 | Outpatient (AMB) | payer OTHER, SELFPAY ==
--- NOTE | 2024-12-01 13:13 | A.OFFVIS_ITS ---
Vital Signs 12/01/24 13:32 Height 5 ft 9 in Weight 230 lb BMI 34.0 Intake Visit Reasons: ED f/u FC LT fibula fx Intake Note: Kris is a 58 year old male who presents today for an ER follow up to evaluate his left fibula fracture, DOI 11/18/24. Patient reports that he was tending to his chickens when his chickens became loose, while he was putting them back in their cage their was a divot in ground, causing him to twist his ankle and fall. He had instant pain and swelling prompting a visit to [facility] [place] [facility] ER where x-rays were taken and placed in a short boot. His pain and swelling has improved since his injury. He uses Tylenol and Motrin as needed. Hx of neuropathy. Allergies No Known Allergies Allergy (Verified 12/01/24 13:25) Medication List - Last Reconciled 12/01/24 by Odalis Bruce PA-C blood pressure test kit-large ([employer] Blood Pressure Monitor kit) As directed dapagliflozin propanediol (Farxiga) 5 mg PO DAILY famotidine 20 mg PO DAILY pregabalin 75 mg PO BEDTIME HPI HPI ED f/u FC LT fibula fx: Details: 58 yo male presents to the office today for an injury he sustained to his left ankle. He states he was tending to his chickens and as he was trying to get the chickens back into the coup his left ankle stepped in a divet and he heard a crack. He was seen in the ED, xrays suspect a lateral avulsion fracture. Patient was placed in a boot and referred to our office for ortho eval. [facility] Medical History Epilepsy Alcohol use disorder History of encephalopathy History of acute respiratory failure History of small bowel obstruction Chronic anemia Impaired glucose tolerance Personal history of nicotine dependence Surgical History No pertinent past surgical history Family History Father Cancer Mother Breast cancer Social History (Updated 12/01/24 @ 13:26 by GRAYSON Mabry) Household Members: Unknown / Unable to assess Housing: House Alcohol intake: former Patient Tobacco Use Status: Former Tobacco user Tobacco use type: Cigarette Years Smoked: (onset 23yo, 1ppd x 35yrs, 30pyh - quit 02/26/24) e-Cigarette/Vaping Use: Never Used Second Hand Smoke Exposure: Yes Advance Directives Date on File: 04/08/24 service: No Current occupational status: employed Current occupation: [employer] Current occupational exposures/hazards: No Cognitive needs: No Hearing needs: No Vision needs: No Review of Systems Const All systems reviewed & are unremarkable except as noted in HPI and below Physical Exam Vital Signs: BMI result Body Mass Index 34.0 Const General: cooperative and no acute distress Orientation/consciousness: patient oriented x3 Resp Effort & Inspection: normal respiratory effort and able to speak in complete sentences Cardio Peripheral pulses: Peripheral pulses 2+ throughout Neuro General: patient oriented x3 Extrem Other: Left ankle is normal to inspection. He does have significant swelling and ecchymosis throughout the foot and ankle with mild tenderness to the posterior aspect of the lateral malleolus. No pain over the medial male or over the syndesmosis. Achilles tendon intact with no pain. Neurovascularly intact. Results Reviewed Results Reviewed: X-rays of the left ankle obtained in the office today and reviewed by me are negative for any acute or chronic abnormalities. Assessment & Plan Assessment & Plan (1) Avulsion fracture of lateral malleolus of left fibula: Code(s): S82.62XA - Displaced fracture of lateral malleolus of left fibula, initial encounter for closed fracture Category: Medical Qualifiers: Encounter type: initial encounter Fracture type: closed Qualified Code(s): S82.62XA - Displaced fracture of lateral malleolus of left fibula, initial encounter for closed fracture Plan: Patient will continue with the boot weightbearing as tolerated for the next 2-3 weeks based on his symptoms. If he has improvement he can transition to a regular street shoe and increase activities as tolerated. I did educate him on occasional flare-ups where he can use ice elevation and anti-inflammatories as needed. If symptoms persist or worsen he will contact our office otherwise follow up as needed. Coding Level of Care Code New Pt Level 3 (64276) Complex EM visit Add On G2211 Diagnoses Avulsion fracture of lateral malleolus of left fibula S82.62XA Encounter type: initial encounter Fracture type: closed
[2024-12-01 13:32] VITALS: BMI 34.0
== END 2024-12-01 15:47 | disposition home or self-care (01) ==
LOC: HO.HOS 13:08
PROVIDERS: Visit Provider Physician Assistant
DX: S82.62XA Displaced fracture of lateral malleolus of left fibula, initial encounter for closed fracture (principal)
CPT/HCPCS: 99203; G2211

== ENCOUNTER → 2024-12-01 13:08 | Outpatient (BNVA) | payer OTHER, SELFPAY | PROVIDERS: Visit Provider Physician Assistant | DX: S82.62XA Displaced fracture of lateral malleolus of left fibula, initial encounter for closed fracture (principal); X50.1XXA Overexertion from prolonged static or awkward postures, initial encounter; Y93.89 Activity, other specified; Y92.72 Chicken coop as the place of occurrence of the external cause; Y99.9 Unspecified external cause status | CPT/HCPCS: 99202 ==

== ENCOUNTER 2024-12-10 10:45 | Outpatient (AMB) | payer OTHER, SELFPAY ==
--- NOTE | 2024-12-10 10:45 | MHC.OFFVIS ---
Intake Visit Reasons: Follow Up Per Dr. Graham Allergies No Known Allergies Allergy (Verified 12/01/24 13:25) HPI HPI Follow Up Per Dr. Graham: Details: History of Present Illness The patient is a 58-year-old male presenting with with diffuse peripheral neuropathy. There were some issues with filling his twice daily pregabalin prescription with the pharmacy and a once daily prescription was filled instead. He has been taking once daily so far. He does not report any side effects so far. He is looking forward to going up on the pregabalin to twice daily regimen. The patient reported breaking his ankle recently. [facility] Medical History Epilepsy Alcohol use disorder History of encephalopathy History of acute respiratory failure History of small bowel obstruction Chronic anemia Impaired glucose tolerance Personal history of nicotine dependence Surgical History No pertinent past surgical history Family History Father Cancer Mother Breast cancer Social History (Updated 12/01/24 @ 13:26 by GRAYSON Mabry) Household Members: Unknown / Unable to assess Housing: House Alcohol intake: former Patient Tobacco Use Status: Former Tobacco user Tobacco use type: Cigarette Years Smoked: (onset 23yo, 1ppd x 35yrs, 30pyh - quit 02/26/24) e-Cigarette/Vaping Use: Never Used Second Hand Smoke Exposure: Yes Advance Directives Date on File: 04/08/24 service: No Current occupational status: employed 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 Current occupational exposures/hazards: No Cognitive needs: No Hearing needs: No Vision needs: No Telehealth Telehealth Telehealth Platform: [employer] Location of provider rendering services: practice address Location of patient: address on file Patient Identification confirmed using: Name, : Yes Telehealth method: video Patient verbally consented to treatment: Yes Patient verbally consented to billing insurance company: Yes Patient informed of any privacy concerns related to visit: Yes Minutes spent on Phone/Video with Pt.: 8 Assessment & Plan Assessment & Plan (1) Neuropathy: Code(s): G62.9 - Polyneuropathy, unspecified Category: Medical (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 - A new prescription for pregabalin will be sent, with a note for a refill around December 19. - Follow-up appointment scheduled for January 12 at 1:30 PM via telehealth. Patient was informed and verbally consented to the use of an ambient scribe for clinic note documentation during this visit. Discussion Notes I discussed with the patient the plan to start pregabalin 75 mg twice daily and informed him about the new prescription and the expected refill date around December 19. We also scheduled a follow-up telehealth appointment for January 12 at 1:30 PM to assess his progress with the medication. Patient Instructions - Start taking pregabalin 75 mg twice daily. - Expect a refill around December 19. - Attend the follow-up telehealth appointment on January 12 at 1:30 PM. Medications: Changed From pregabalin 75 mg PO BEDTIME 30 caps 0RF R03.0 - Elevated blood-pressure reading, without diagnosis of hypertension To pregabalin 75 mg PO BID 60 caps 2RF R03.0 - Elevated blood-pressure reading, without diagnosis of hypertension Coding Level of Care Code Tele Est Pt Level 2 (36828) Diagnoses Neuropathy G62.9 Alcoholic peripheral neuropathy G62.1
--- OUTSIDE RECORDS SUMMARY | 2024-12-10 11:28 | XMS_ITS | Encounter Summary ---
Author Organization [facility] Address [address] [place] [address] Care Team Providers Care Heart Surgeon Name Role Phone Jeramy Rojas MD Primary Care Provider Shaquille Nettles DO Primary Care Provider Unavaila ble Encounter Details Date Type Department Care Team Description 07/29/2014 [employer] [facility] Report Medical Records [address] [place] [address] Abstract, Provider Social History Tobacco Use Types [...] on filedocumented in this encounter Care Teams Heart Surgeon Relationship Specialty Start Date End Date Jeramy Rojas MD [address] [place] [address] PCP - General 09/19/1997 08/14/16 Shaquille Nettles DO [address] [place] [address] PCP - General Internal Medicine 08/15/16 documented as of this encounter
== END 2024-12-10 10:45 | disposition home or self-care (01) ==
PROVIDERS: Visit Provider Internal Medicine
DX: G62.9 Polyneuropathy, unspecified (principal); G62.1 Alcoholic polyneuropathy
CPT/HCPCS: 98004

== ENCOUNTER 2024-12-23 10:46 | Outpatient (AMB) | payer OTHER, SELFPAY ==
--- NOTE | 2024-12-23 10:59 | MHC.PC.OV ---
Vital Signs 12/23/24 11:00 Height 5 ft 9 in Weight 248 lb 6 oz BMI 36.7 BP 176/70 H Blood Pressure Location Lt brachial Position Sitting Pulse 96 Pulse Source Pulse Oximeter Temp 97.8 F Temp Source Temporal Artery Scan Pulse Oximetry (%) 97 Oxygen Delivery Method Room Air Intake Visit Reasons: f/u DM Office Messenger Helper Required: No Accompanied by: Self / Same As Patient Allergies No Known Allergies Allergy (Verified 12/23/24 11:07) Medication List - Last Reconciled 12/23/24 by Deidra Escalante PA-C blood pressure test kit-large ([employer] Blood Pressure Monitor kit) As directed dapagliflozin propanediol (Farxiga) 5 mg PO DAILY famotidine 20 mg PO DAILY pregabalin 75 mg PO BID Tobacco use date assessed: 12/23/24 Dental Screening Dental Screen Date: 12/23/24 Did you have a dental visit in the last 12 months?: No Did you have a dental problem in the last 6 months where you did not have access to dental care?: No Was dental information given to patient?: No HPI f/u DM HPI Details 58-year-old male with past medical history of elevated blood pressure, impaired glucose tolerance, nicotine dependence, diabetes mellitus, alcohol use disorder, neuropathy, GERD last seen 08/2024 coming in for follow up. In review of the notes, patient is following with pain management for neuropathy pregabalin was increased to twice daily and advised to follow up in 1 month. He is also seen by Orthopedics 12/01/2024 after a left fibular fracture advised to continue with boot weight-bearing as tolerated for the next 2-3 weeks and follow up as needed. Presenting for management of diabetic neuropathy, hypertension, and type 2 diabetes mellitus. Reports persistent numbness in feet, especially at night. Pregabalin has improved pain but not numbness. Home blood pressure readings are generally controlled, but clinic readings are elevated, likely due to anxiety and caffeine intake. Developed a rash on the left arm, suspected contact dermatitis, possibly from sun exposure. Using cortisone cream with some relief. A1c increased to 8.9 from 6.8, attributed to dietary changes and decreased activity. Farxiga dose increased to 10 mg. [facility] Medical History (Updated 12/23/24 @ 11:25 by Deidra Escalante PA-C) Epilepsy Alcohol use disorder History of encephalopathy History of acute respiratory failure History of small bowel obstruction Chronic anemia Impaired glucose tolerance Personal history of nicotine dependence Surgical History No pertinent past surgical history Family History Father Cancer Mother Breast cancer Social History Household Members: Unknown / Unable to assess Housing: House Alcohol intake: former Patient Tobacco Use Status: Former Tobacco user Tobacco use type: Cigarette Years Smoked: (onset 23yo, 1ppd x 35yrs, 30pyh - quit 02/26/24) e-Cigarette/Vaping Use: Never Used Second Hand Smoke Exposure: Yes Advance Directives Date on File: 04/08/24 service: No Current occupational status: employed Current occupation: [employer] Current occupational exposures/hazards: No Cognitive needs: No Hearing needs: No Vision needs: No Questionnaire PHQ-9 Over the last 2 weeks, how often have you been bothered by any of the following problems? 1. Little interest or pleasure in doing things: nearly every day 2. Feeling down, depressed, or hopeless: not at all 3. Trouble falling or staying asleep, or sleeping too much: not at all 4. Feeling tired or having little energy: not at all 5. Poor appetite or overeating: not at all 6. Feeling bad about yourself - or that you are a failure or have let yourself or your family down: not at all 7. Trouble concentrating on things, such as reading the newspaper or watching television: not at all 8. Moving or speaking so slowly that other people could have noticed. Or the opposite - being so fidgety or restless that you have been moving around a lot more than usual: not at all 9. Thoughts that you would be better off or of hurting yourself in some way: not at all Total score: 3 Depression Screening Interpretation: Negative Depression Screening Done: Yes 77665 - PHQ-9 Billing: Yes Source: Developed by Drs. Tobi Glover, Shakira Christopher, Domingo Hernandez and colleagues, with an educational anastasia from [employer]. Thrive Questionnaire Date Thrive assessed: 12/23/24 I am a: Patient What is your living situation today?: I have a steady place to live Within the past 12 months, did the food you bought not last and you didn't have the money to get more?: Sometimes True Within the past 12 months, did you worry whether your food would run out before you got money to buy more?: Sometimes True Do you have trouble paying for medicines?: No Do you have trouble getting transportation to medical appointments?: No Do you have trouble paying your heating and electricity bill?: Yes Do you have trouble taking care of your child, family member or friend?: No Do you have trouble with day-to-day activities such as bathing, preparing meals, shopping, managing finances, etc.?: Yes Are you currently unemployed and looking for a job?: No Are you interested in more education?: No Please select the resources that you would like help with: None Currently or been in a relationship where the following occur: No concerns reported THRIVE Score: 3 MADDISON-7 AMB Questionnaire MADDISON-7 Date MADDISON - 7 assessed: 12/23/24 Source: Developed by Drs. Tobi Glover, Shakira Christopher, Domingo Hernandez and colleagues, with an educational anastasia from [employer]. Review of Systems Const Denies body aches, Denies chills, Denies fever(s), Denies headache(s) and Denies poor appetite Eyes Reports no additional complaints ENT Denies dizziness and Denies headache(s) Card Denies chest pain, Denies syncope, Denies edema, Denies lightheadedness and Denies dyspnea Resp Denies cough and Denies dyspnea GI Denies nausea and Denies vomiting Reports no additional complaints Musc Reports as per HPI and Reports abnormal gait Skin/Breast Reports as per HPI Neuro Reports abnormal gait, Denies dizziness, Denies syncope and Denies headache(s) Psych Reports no additional complaints Physical exam (Primary Care) Vital Signs: Last Vital Signs Temp 97.8 F 12/23/24 11:00 Pulse 96 12/23/24 11:00 BP 176/70 H 12/23/24 11:00 Pulse Ox 97 12/23/24 11:00 Oxygen Delivery Method Room Air 12/23/24 11:00 BMI result Body Mass Index 36.7 Tobacco/Smoking Status: Tobacco use Status Tobacco use date assessed 12/23/24 12/23/24 11:07 Patient Tobacco Use Status Former Tobacco user 12/23/24 10:59 Tobacco use type Cigarette 12/23/24 10:59 e-Cigarette/Vaping Use Never Used 12/23/24 10:59 PHQ-9: PHQ-9 Score PHQ-9: Total score 3 12/23/24 11:12 Depression Screening Interpretation: Negative Thrive Assessment: Date of Thrive Assessment Date Thrive assessed 12/23/24 12/23/24 11:07 Currently or been in a relationship where the following occur: No concerns reported Const General: cooperative, healthy appearing, comfortable and no acute distress Orientation/consciousness: patient oriented x3 HENMT Head: Yes normocephalic Ears: hearing grossly normal bilaterally General nose exam: Normal external nose present Eyes General: appearance normal, both eyes and all related structures Conjunctivae: conjunctivae normal Neck Neck: Yes full ROM and Yes no lymphadenopathy Resp Effort & Inspection: normal respiratory effort Auscultation: clear to auscultation bilaterally, no crackles, no rales, no rhonchi and no wheezes Cardio Rate: regular rate Rhythm: regular rhythm Skin Other: Contact dermatitis of the left forearm General skin exam: no rashes or lesions noted Neuro General: patient oriented x3 Gait exam (Neuro): Normal gait present Extrem General: Yes normal to inspection, Yes full ROM and No edema Psych Affect: normal affect Attitude: cooperative Insight: Good insight present (Psych) Judgement: Good judgement present (Psych) Results AMB Hemoglobin A1c AMB Hemoglobin A1c 8.9 % Last Edit by Lindsey Oliveira MA on 12/23/24 11:14 Coding Level of Care Code Est Pt Level 4 (54910) Diagnoses Elevated blood pressure reading without diagnosis of hypertension R03.0 Type 2 diabetes mellitus with diabetic neuropathy, without long-term current use of insulin E11.40 Diabetes mellitus complication detail: with unspecified neuropathy Diabetes mellitus complication status: with neurologic complications Diabetes mellitus nursing home insulin use: without extermination inspector use Diabetes mellitus type: type 2 GERD (gastroesophageal reflux disease) K21.9 Obesity (BMI 30.0-34.9) E66.811 Avulsion fracture of lateral malleolus of left fibula S82.62XA Encounter type: initial encounter Fracture type: closed Diabetic neuropathy E11.40 Contact dermatitis L25.9 Alcohol use disorder F10.90 Additional Codes PHQ-9 - 09457 - PHQ-9 Billing: Yes ([id number]) Assessment & Plan Assessment & Plan (1) Elevated blood pressure reading without diagnosis of hypertension: Code(s): R03.0 - Elevated blood-pressure reading, without diagnosis of hypertension Category: Medical Plan: Blood pressure at home have been within normal limits and rarely has values above 140/90. Avoid salt intake and encourage healthy diet and regular exercise. Patient agrees to send blood pressure log through the portal and bring blood pressure cuff to next visit. (2) Diabetes mellitus: Code(s): E11.9 - Type 2 diabetes mellitus without complications Category: Medical Qualifiers: Diabetes mellitus complication detail: with unspecified neuropathy Diabetes mellitus complication status: with neurologic complications Diabetes mellitus extermination inspector insulin use: without nursing home use Diabetes mellitus type: type 2 Qualified Code(s): E11.40 - Type 2 diabetes mellitus with diabetic neuropathy, unspecified Plan: Decrease the amount of carbohydrates such as pasta, bread, rice, and potatoes and limit the amount of sweets. Although fruits are generally healthy they should be eaten in moderation as they are still high in sugar. Hemoglobin A1c goal of less than 7%. Increase in A1c from 6.9% to 8.9%. Patient states he has been having a poor diet and lack of exercise since the fracture of the foot. He agrees to work on dietary and lifestyle modification and plan to increase Farxiga to 10 mg at this time. Repeat A1c in 3 months (3) GERD (gastroesophageal reflux disease): Code(s): K21.9 - Gastro-esophageal reflux disease without esophagitis Category: Medical Plan: Avoid trigger foods such as citrus, tomato products, soda, caffeine, spicy foods and other foods that may be irritating to your stomach. Avoid laying flat 3-4 hours after eating and elevate the head of the bed 30 degrees to prevent acid from moving into the esophagus. Continue on famotidine (4) Obesity (BMI 30.0-34.9): Code(s): E66.811 - Obesity, class 1 Category: Medical Plan: Healthy diet and regular exercise is encouraged. Recent weight gain from last visit likely related to his decreased physical activity and poor diet. Plan to work on increasing protein and vegetables into diet and decreasing carbohydrate intake. (5) Avulsion fracture of lateral malleolus of left fibula: Code(s): S82.62XA - Displaced fracture of lateral malleolus of left fibula, initial encounter for closed fracture Category: Medical Qualifiers: Encounter type: initial encounter Fracture type: closed Qualified Code(s): S82.62XA - Displaced fracture of lateral malleolus of left fibula, initial encounter for closed fracture Plan: Has graduated to Street shoe and has been doing well with this. He does still continue to have mild but manageable pain. Follow up with Orthopedics as needed (6) Diabetic neuropathy: Code(s): E11.40 - Type 2 diabetes mellitus with diabetic neuropathy, unspecified Category: Medical Plan: Currently following with pain management and pregabalin was recently increased to 75 mg twice daily. Advised good control of blood sugars. (7) Contact dermatitis: Code(s): L25.9 - Unspecified contact dermatitis, unspecified cause Category: Medical Plan: Contact dermatitis of the left forearm which he believes to be related to sun exposure. Advised patient to keep this area of his arm covered while driving in the use of sunscreen. Patient may use topical steroid cream to help with dermatitis and itching advised patient to continue to watch for possible irritants. (8) Alcohol use disorder: Code(s): F10.90 - Alcohol use, unspecified, uncomplicated Category: Medical Plan: Has been abstaining from alcohol. Plan The patient's diabetic neuropathy is being managed with pregabalin, which has improved pain but not numbness. Continued monitoring and adjustment of medication may be necessary. For hypertension, the patient is advised to continue home monitoring of blood pressure and document readings for review. Anxiety management strategies may be beneficial to address elevated clinic readings. The rash on the patient's arm, suspected to be contact dermatitis, will be treated with a stronger steroid cream than cortisone. The patient is advised to avoid sun exposure and potential irritants. For type 2 diabetes mellitus, the Farxiga dose is increased to 10 mg to address the elevated A1c. Dietary modifications and increased physical activity are recommended as mobility improves. The patient is instructed to continue using famotidine as needed for acid reflux. Follow-up in three months is planned to reassess the patient's condition and adjust treatment as necessary. The patient is encouraged to bring his blood pressure cuff to the next visit for calibration and accuracy verification. This note was constructed using voice recognition software. While every effort has been made to ensure accuracy and gameroom technician, still areas may have been included sometimes these areas may affect the content or meeting of the given symptoms. Total time spent caring for the patient today was 20 minutes. This includes time spent before the visit reviewing the chart, time spent during the visit, and time spent after the visit and documentation. Patient was informed and verbally consented to the use of an ambient scribe for clinic note documentation during this visit. Orders: Orders AMB Hemoglobin A1c Today E11.40 - Type 2 diabetes mellitus with diabetic neuropathy, unspecified Medications: New triamcinolone acetonide 0.1% 1 appl topical DAILY 30 grams 0RF dapagliflozin propanediol (Farxiga) 10 mg PO DAILY 90 tabs 0RF Discontinued dapagliflozin propanediol (Farxiga) Discontinued Reason: Patient no longer taking 5 mg PO DAILY 90 tabs 2RF
[2024-12-23 11:00] VITALS: BP 176/70; PULSE 96; TEMP 36.6; O2SAT 97; BMI 36.7
== END 2024-12-23 11:32 | disposition home or self-care (01) ==
LOC: HO.HMCH 10:47
DX: E11.40 Type 2 diabetes mellitus with diabetic neuropathy, unspecified (principal); E66.811 Obesity, class 1; Z68.36 Body mass index [BMI] 36.0-36.9, adult; R03.0 Elevated blood-pressure reading, without diagnosis of hypertension; K21.9 Gastro-esophageal reflux disease without esophagitis; S82.62XA Displaced fracture of lateral malleolus of left fibula, initial encounter for closed fracture; L25.9 Unspecified contact dermatitis, unspecified cause; F10.90 Alcohol use, unspecified, uncomplicated

== ENCOUNTER → 2024-12-23 10:46 | Outpatient (BNVA) | payer OTHER, SELFPAY | DX: E11.40 Type 2 diabetes mellitus with diabetic neuropathy, unspecified (principal); R03.0 Elevated blood-pressure reading, without diagnosis of hypertension; K21.9 Gastro-esophageal reflux disease without esophagitis; E66.811 Obesity, class 1; Z68.36 Body mass index [BMI] 36.0-36.9, adult; S82.62XD Displaced fracture of lateral malleolus of left fibula, subsequent encounter for closed fracture with routine healing; L25.9 Unspecified contact dermatitis, unspecified cause; F10.90 Alcohol use, unspecified, uncomplicated | CPT/HCPCS: 83036; 96127; 99212 ==

== ENCOUNTER 2024-12-25 10:26 | Outpatient (REF) | payer OTHER, SELFPAY | END 2024-12-25 10:27 | disposition home or self-care (01) | LOC: HO.US 10:26 | PROVIDERS: Visit Provider Internal Medicine | DX: Z13.89 Encounter for screening for other disorder (principal) ==